=== PATIENT | female | born 1975 | race Caucasian/White ===

== ENCOUNTER 2021-08-14 08:44 | Day surgery (SDC) | payer OTHER, SELFPAY ==
--- NOTE | 2021-08-13 08:40 | EKG12_ITS ---
Test Reason : PRE OP Blood Pressure : / mmHG Vent. Rate : 090 BPM Atrial Rate : 090 BPM P-R Int : 120 ms QRS Dur : 086 ms QT Int : 348 ms P-R-T Axes : 076 072 066 degrees QTc Int : 425 ms Normal sinus rhythm Normal ECG Confirmed by DORYS PALACIO, HILDA ([id number]), writer editor WALDEMAR VELEZ ([id number]) on 08/14/2021 7:26:03 AM Referred By: Kulwant Estrada Confirmed By:HILDA SAUL MD
[2021-08-13 10:50] LABS: Hematocrit 41.8 % (37-47); Hemoglobin 13.7 g/dL (12.0-15.0); Mean Corp Hgb Conc 32.8 g/dL (32-36); Mean Corpuscular Volume 97.7 fL (81-99); Mean Platelet Vol. 10.5 fl (6.2-12.0); Platelet Count 379 K/mm3 (150-450); RBC Distribution Width CV 13.5 % (11.6-14.6); Red Blood Count 4.28 M/mm3 (4.2-5.4); White Blood Count 8.1 K/mm3 (4.4-11.0)
[2021-08-14] VITALS (11 sets, daily range): BP systolic 123–140; BP diastolic 87–96; PULSE 82–99; RESP 16–18; TEMP 36–36.4; O2SAT 92–100; BMI 31.0
[2021-08-14] MEDS: Lactated Ringers 1,000 ML 100 ML IV ×2 (09:00→11:59)
--- NOTE | 2021-08-14 10:04 | HP.PCM_ITS ---
History and Physical Date of Admission: 08/14/21 HISTORY AND PHYSICAL ? Caity Montemayor 1975 ? REFERRING PHYSICIAN: Janice Buitrago APRN* ? CHIEF COMPLAINT: Consult (gallstones) ? HPI: Caity is a 46 year old female with a complaint of right upper quadrant pain. The patient has had symptoms of right upper quadrant pain episodically for some time. Patient has a strong family history of gallbladder problems. Her symptoms have been similar to her other families issues. She notes right upper quadrant pain rating to her back and shoulder after eating fatty meals. She describes the pain is like childbirth under her ribs. The symptoms have increased, over the past few weeks. The pain does radiate to the back and serena ulder. Food does aggravate her symptoms. Alleviating factors include: none. ? The patient was seen by her primary care physician 2 weeks ago. Caity underwent an ultrasound. These tests demonstrated cholelithiasis. The patient is referred for evaluation and treatment. ? The patient is being seen by me today at the request of Dr. Fernando Pedersen, for my opinion and advice regarding symptomatic cholelithiasis. ? ? SIGNIFICANT MEDICAL PROBLEMS: PAST MEDICAL HISTORY PAST MEDICAL HISTORY Diagnosis Date ? Endometriosis ? ? Gall stone ? ? Hypercholesteremia ? ? MARIIA (obstructive sleep apnea) ? ? [facility] fx. [phone] ? Seasonal allergies ? ? Trigeminal neuralgia syndrome ? ? Currently on Dr. Matthias Baptiste Neurologist ? Vitamin D deficiency ? ? ? OPERATIONS: PAST SURGICAL HISTORY PAST SURGICAL HISTORY Procedure Laterality Date ? BRAIN SURGERY HX ? ? ? Microvascular decompression ? CORRECT BUNION,OTHR METHODS ? 2011,2010 ? both feet ? LUMPECTOMY/RADIOTHERAPY DIAG MAMM/A10 ? 2005 ? benign ? PAST SURGICAL HISTORY OF ? ? ? wisdom teeth ? PAST SURGICAL HISTORY OF ? ? ? exploratory laproscopy ? S [place]ER[place] ABLATION [address] ? 2008 ? STABISM SURG,PREV EYE SURG,NOT MUSC ? 1979 ? both eyes ? VAGINAL HYSTERECTOMY ? 06/2013 ? Hysterectomy, vaginal ? ? ? CURRENT MEDICATIONS: CURRENT MEDICATIONS Current Outpatient Medications Medication Sig Dispense Refill ? MULTIVITAMIN ORAL Take by mouth once daily. ? ? ? HERBAL DRUGS ORAL Take by mouth. Tumeric ? ? ? esomeprazole (NEXIUM) 40 mg capsule TAKE 1 CAPSULE BY MOUTH DAILY BEFORE BREAKFAST. 1/2 HR BEFORE MEAL. 30 capsule 0 ? lacosamide (VIMPAT) 150 mg tab Take by mouth twice daily. ? ? ? cenobamate (XCOPRI ORAL) Take 25 mg by mouth. 150 mg daily ? ondansetron orally disintegrating (ZOFRAN ODT) 4 mg disintegrating tablet Take 1 tablet by mouth every 6 hours as needed for Nausea/Vomiting. 40 tablet 1 ? CPAP Initiate CPAP @ 10 cm of water with humidification, heated hose. Nasal cannula - women's small , filters, tubing, humidifier and lifetime supplies. New head gear. Resmed Airsense 10 Autoset Machine 1 Device 0 ? cholecalciferol (VITAMIN D3) 2,000 unit tablet Take 1 tablet by mouth once daily. 90 tablet 3 ? loratadine (CLARITIN) 10 mg tablet Take 10 mg by mouth once daily. ? ? ? ACETAMINOPHEN (TYLENOL ORAL) Take by mouth. ? ? ? baclofen (LIORESAL) 10 mg tablet Take 1 tablet by mouth three times daily as needed (Face pain). 90 tablet 11 ? acyclovir (ZOVIRAX) 400 mg tablet Take 1 tablet by mouth three times daily. (Patient not taking: Reported on 08/04/2021 ) 21 tablet 1 ? No current facility-administered medications for this visit. ? ? ALLERGIES: Tegretol [Carbamazepine] ? PERSONAL HISTORY: SOCIAL HISTORY Social History ? Tobacco Use ? Smoking status: Never Smoker ? Smokeless tobacco: Never Used Vaping Use ? Vaping Use: Never used Substance Use Topics ? Alcohol use: Yes ? ? Comment: occaionally wine ? Drug use: No ? FAMILY HISTORY: FAMILY HISTORY FAMILY HISTORY Problem Relation Age of Onset ? Breast Cancer Mother ? ? 60, diagnosed unknown age ? Cancer Father ? ? kidney ? Hypertension Father ? ? Hypertension Paternal Grandmother ? ? Diabetes Paternal Grandmother ? ? Alzheimer's Disease Paternal Grandfather ? ? ? REVIEW OF SYMPTOMS: The review of systems data was entered by the nurse and reviewed by me ? Nursing Notes: Raven Husain RN 08/04/2021 2:12 PM Signed REVIEW OF SYSTEMS: General: The patient NOTES fatigue, denies weight loss, denies weight gain, denies feeling hot, and NOTES feelings of cold. Eyes: The patient denies glaucoma, NOTES eye injury/surgery, does not wear glasses or contacts. Ear/Nose/Throat: The patient NOTES allergies, denies hayfever, denies ear infections, and denies bloody noses. Cardiovascular: The patient denies chest pain, denies heart disease, denies high blood pressure,denies cardiac stent, denies prior heart attack, denies irregular heart beat, denies high cholesterol, denies poor circulation, denies heart failure, other cardiac issues, denies claudication, denies cold feet, denies peripheral arterial stent. Respiratory: The patient denies tuberculosis, denies pneumonia, denies frequent cough, denies pulmonary embolism, denies shortness of breath, and denies coughing up blood. Gastrointestinal: The patient denies difficulty swallowing, denies acid reflux, denies ulcers, denies vomiting, denies jaundice/hepatitis, NOTES gallbladder problems, denies black or tarry stools, denies hemorrhoids, denies bleeding from rectum, denies diverticulitis, denies constipation, denies diarrhea, denies loss of stool control, and denies hernias. Kidney/Bladder: The patient denies kidney stones, denies urine infections, and denies bloody urine. Skin: The patient denies a history of skin cancer, denies bleeding/changing moles, and denies a history of skin rash. Neurologic: The patient denies a history of epilepsy/convulsions, denies headaches, denies head/spinal injuries, and denies stroke/TIA. Psychiatric: The patient denies psychiatric medications, denies depression, and denies voices, denies substance abuse. Endocrine: The patient denies thyroid disorders, denies diabetes, and denies hormonal problems. Hematologic: The patient denies a history of bruising, denies bleeding, and denies anemia, denies blood clots. Infections: The patient denies a history of measles and mumps, denies rheumatic fever, and denies sexually transmitted diseases. Musculoskeletal: The patient denies back pain/injury, denies back problems, denies sciatica, denies knee/foot trouble, denies arthritis, or denies gout. ? ? When was patient's last Mammogram screening? 02/09/2017 ? Last Colonoscopy: None ? Raven Husain RN ? PHYSICAL EXAMINATION: ? General: The patient is 46 year old female, well nourished, well hydrated in no acute distress. The patient is oriented to time, place, and person. ? VITALS: Blood pressure 122/80, pulse 104, temperature 36.7 ?C (98.1 ?F), height 165.1 cm (5' 5), weight 84.9 kg (187 lb 3.2 oz), SpO2 98 %. Body mass index is 31.15 kg/m?. ? HEENT: Normal cephalic, ataumatic, pupils are equally round, sclera are anicteric, mucous membranes are moist, oropharynx is clear. Neck has no masses, asymmetry or lymphadenopathy. Thyroid is unremarkable. ? Respiratory: Clear to auscultation and percussion. Normal respiratory excursion and pattern. ? Cardiac: Examination is regular rate and rhythm. ? Abdominal exam: Normoactive bowel sounds, Soft, tender in the right upper quadrant negative Felix's sign, with no palpable masses. No hepatosplenomegaly. No palpable hernias. ? Rectal exam: exam deferred ? Extremities: no clubbing, cyanosis or edema. No adenopathy. ? Other: ? LABORATORY VALUES: As Noted ? RADIOLOGIC STUDIES: As Noted Above ? Assessment IMPRESSION: RUQ Pain, Cholelithiasis ? PLAN: My plan is to perform a laparoscopic cholecystectomy with intraoperative choleangiogram. The planned surgical procedure was discussed extensively with the patient. The risks, benefits, anticipated outcomes and possible complications were mentioned. My staff has also explained the procedure in understandable terms and the patient was given the option to take printed material concerning the planned procedure. The patient had the opportunity to ask questions concerning the planned procedure. The patient freely consents to the planned procedure. ? Planned Procedure: LAPAROSCOPIC CHOLECYSTECTOMY WITH INTRAOPERATIVE CHOLEANGIOGRAM - [id number] ? Planned antibiotic: Ancef 2gm IVPB devops solutions architect to OR ? SCDs needed - Yes ? Occupational Therapist Per Diem Needed - Yes ? Diagnoses: (R10.13) Epigastric abdominal pain (R10.11) RUQ abdominal pain (K80.20) Calculus of gallbladder without cholecystitis without obstruction ? ? ? I was planning to perform the surgical procedure but the patient has all tear and requires her procedure performed at [facility]. I will have my partner Dr. Estrada perform the procedure. ? My findings have been communicated to Dr. Fernando Pedersen DO via shared medical record. This note will be forwarded to Dr. Fernando L Pedersen, DO. ? Obed Youngblood MD I have re-examined the patient. There are no clinical changes since date of exam.
--- NOTE | 2021-08-14 10:30 | GALL_PTH ---
PATIENT: POLINA RODRIGUEZ LOC: [facility] [place] U#:[id number] AGE/SX: 46/F ROOM: RE08/14/[address]: Dr. Kulwant Estrada MD : 1975 BED: DIS: 08/14/2021 SPEC #: [id number] RECD: 08/14/21 13:46 STATUS: HASEEB HELGA #: [id number] MELI: 08/14/21 10:[address]: Kulwant Estrada DEPT: SURGICAL PATHOLOGY RECD BY: Tory Garcia ENTERED: 08/17/21 09:19 SP TYPE: ELIZA ROMERO DR: Dr. Fernando Pedersen, DO Tissues: Gallbladder, NOS Procedures: Surgery Specimen Level IV HEADER OPERATION: Laparoscopic cholecystectomy PRE-OP DIAGNOSIS: Calculus of gallbladder, RUQ pain TISSUE SUBMITTED: Gallbladder and contents MICROSCOPIC DIAGNOSIS Gallbladder and contents, cholecystectomy: Chronic cholecystitis, cholelithiasis and focal cholesterolosis. Reactive epithelial changes and focal intestinal metaplasia. SJ:prem 08/19/2021 COMMENT Alcian blue/PAS stain with matched control is used in the evaluation of the specimen. Case has been reviewed in consultation with Dr. Estrada who concurs with the above diagnosis. IDC:AM MICROSCOPIC DESCRIPTION Slides are reviewed. GROSS DESCRIPTION Received is one container labeled with the patient's name and designated gallbladder. The specimen consists of a gallbladder measuring 8 x 3 x 2.5 cm. The external surface is smooth and glistening. Focally, it is granular, hemorrhagic and contains cautery artifact. The lumen of the gallbladder contains yellow-green mucoid bile and multiple chalky, yellow calculi ranging in size from 0.1 to 1 cm in greatest dimension. The mucosa is bile-stained and without any mass lesions. The gallbladder wall averages 0.2 cm in thickness and is free of mass lesions. Rotor Pilot sections of the gallbladder and the cystic duct at margin of resection are submitted in one cassette. / AM:prem 08/17/21 More sections are submitted in three more cassettes, 2-4. / SJ:prem 08/18/21 TC:5 CPT: 47431, 55298
[2021-08-14] MEDS: Cefazolin 2 GM in 0.9% Normal Saline 100 ML IV (10:32)
[2021-08-14] MEDS: Bupivacaine Mpf 0.5% 30 ML VIAL (11:11)
--- NOTE | 2021-08-14 11:33 | PCM.OPRPT ---
Problems Associated Problem List Diagnoses (1) Cholelithiasis and cholecystitis without obstruction: Report of Operation Date of Procedure: 08/14/21 Pre-Operative Diagnosis: Symptomatic cholelithiasis Post-Operative Diagnosis: Same Surgery/Procedure Performed:: Laparoscopic cholecystectomy Surgeon: Kulwant Estrada business applications analyst: Alexis Cortez Type of Anesthesia: General Anesthesiologist: Ramón Forrester Specimen's removed: Gallbladder Drains: None Estimated Blood Loss (mL): < 25 cc Description of Procedure: Patient was brought into the operating room. Placed in the supine position. Under excellent general endotracheal ovation the abdomen was sterilely prepped and draped in the usual fashion. Local was injected infraumbilically. Dissection was carried down to the fascia. The fascia was grasped with a Xu. Varies needle was placed inside the abdomen. Abdomen was insufflated to 15 torr. A 10/12 trocar was placed without difficulty. Patient was placed in the head up and rotated to the left position. A subxiphoid #5 trocar was placed, inferior to this another #5 trocar was placed, laterally a #5 trocar was placed. All these under direct visualization without injury to underlying structures. Fundus of the gallbladder was grasped retracted in cephalad direction. Infundibulum was grasped retracted laterally. I dissected out the cystic duct. Placed hemoclips proximally and distally and ligated the duct. Dissected out the cystic artery placed hemoclips proximally and distally ligated deliver the gallbladder from the gallbladder bed I had spillage of bile but I had no spillage of stones I placed the specimen in a specimen bag and delivered through the umbilical port without difficulty. Reinflated the abdomen. Irrigated out all of the spilled bile. Liver bed had excellent hemostasis. Removed the trochars under direct visualization good and the stasis was noted. Close the fascia of the umbilical port with an 0 Vicryl suture. Skin incisions were closed with subcuticular stitches of 4-0 Monocryl. Dermabond was applied. Sterile dressings were applied. The patient tolerated the procedure well. Admit VTE Documentation VTE Present on Admission: No VTE Mechan Device Prophylaxis: SCD's VTE Pharm Prophylaxis ordered?: No Reason prophylaxis not ordered:: Treatment Not Indicated
--- NOTE | 2021-08-14 11:41 | DCINST_ITS ---
Discharge Instructions Procedure Gallbladder Diet Discharge Diet: Light diet - advance as tolerated Activity Discharge Activity: May Not Drive (for 2-3 days or while taking narcotic pain medications.) and - (Do not drive, work heavy equipment or sign legal documents for 24 hours.) May shower in (days): 1 (with the bandage in place.) Additional Activity Instructions:: Pain medication may cause nausea. You should typically eat light foods as you take your pain medications. Pain medication may also cause constipation. If this is a problem for you, please discuss with your doctor. Dressing / Incision Call your doctor if your incision/area has: Continuous Slow Oozing, Sudden Increased Bleeding, Increased Pain/ Swelling, Increased Redness and Foul Smelling Discharge Call your doctor if you observe: Fever of 101 or Higher Suture Line Care: Avoid Pulling/Pushing and Avoid Pinching/Bending Additional Dressing/Incision Instructions:: Leave operative bandaids on for 2 days. When you remove dressing, leave Steri-Strips on until your follow-up appointment, or until the Steri-Strips fall off on their own. Follow Up Care Please Follow Up With: Ann-Marie Vazquez PA-C When: Call office to schedule an appointment to be seen in 7 days after surgery. Test Results: Test results from this visit will be discussed in further detail at your follow-up appointment, if applicable. Discharge Plan Admission Attending Provider: Kulwant Estrada Primary Care Provider: Fernando Pedersen Discharge Orders/Prescriptions Prescriptions: New ondansetron HCl [Zofran] 4 mg tablet 4 mg PO Q6H Qty: 14 RF: 0 oxycodone-acetaminophen [Endocet] 5-325 mg tablet 1 tab PO Q6H PRN (Reason: pain) 5 Days Qty: 20 RF: 0 Continued Excedrin Migraine 1 EACH tablet 1 ea PO PRN PRN (Reason: Headache) RF: 0 multivitamin Tablet 1 tab PO DAILY RF: 0 esomeprazole magnesium 40 mg capsule,delayed release(DR/EC) 40 mg PO DAILY RF: 0 loratadine [Claritin] 10 mg Tablet 10 mg PO DAILY RF: 0 cholecalciferol (vitamin D3) [Vitamin D3] 25 mcg (1,000 unit) Tablet 25 mcg PO DAILY RF: 0 Vimpat 150 mg tablet 150 mg PO BID RF: 0 Xcopri 200 mg Tablet 200 mg PO DAILY RF: 0 turmeric root-charlotte root ext 150-25 mg Tablet,Chewable 1 tab PO DAILY RF: 0 baclofen 10 mg tablet 10 mg PO TID RF: 0 Referrals / Follow Up: Fernando Pedersen DO [Primary Care Provider] - Ann-Marie Vazquez PAJulio CC [PHYSICIAN SENIOR GEOTECHNICAL ENGINEER] - Disposition Disposition (needs filled in before D/C Order can be placed): Home, Self Care
[2021-08-14] MEDS: Acetaminophen 325 MG Tablet PO (13:36)
[2021-08-14] MEDS: oxyCODONE 5 MG Tablet PO (13:36)
== END 2021-08-14 16:31 | disposition home or self-care (01) ==
LOC: SDC 08:45 → AC 08:46
PROVIDERS: PCP Student in an Organized Health Care Education/Training Program; Referring Provider Surgery; Visit Provider Surgery
PROC: (CPT 47610; principal; 2021-08-14 10:10)
DX: K80.10 Calculus of gallbladder with chronic cholecystitis without obstruction (principal); E78.00 Pure hypercholesterolemia, unspecified; G47.33 Obstructive sleep apnea (adult) (pediatric); Z79.899 Other long term (current) drug therapy; Z80.3 Family history of malignant neoplasm of breast; Z83.3 Family history of diabetes mellitus; Z82.49 Family history of ischemic heart disease and other diseases of the circulatory system
CPT/HCPCS: 00790; 47562; 36415; 85027; 87426; 88304; 88305; 93005; C9803; J7120; J2405

== ENCOUNTER 2022-06-14 11:46 | Day surgery (SDC) | payer OTHER, SELFPAY ==
[2022-06-14] VITALS (7 sets, daily range): BP systolic 125–134; BP diastolic 55–90; PULSE 77–97; RESP 14–16; TEMP 37–37.1; O2SAT 98–100; BMI 29.3
--- NOTE | 2022-06-14 | COLBX_PTH ---
PATIENT: POLINA RODRIGUEZ LOC: [place] U#:[id number] AGE/SX: 47/F ROOM: RE06/14/[address]: Dr. Kulwant Estrada MD : 1975 BED: DIS: 06/14/2022 SPEC #: [id number] RECD: 06/14/22 13:56 STATUS: HASEEB HELGA #: [id number] MELI: 06/14/22 00:[address]: Kulwant Estrada DEPT: SURGICAL PATHOLOGY RECD BY: Trey Pelayo ENTERED: 06/15/22 08:54 SP TYPE: COLON BX OTHR DR: Dr. Fernando Pedersen, DO Tissues: A - Duodenum, NOS B - Gastric mucous membrane C - Esophageal mucous membrane D - Ileum, NOS E - COLON BIOPSY Procedures: Surgery Specimen Level IV HEADER OPERATION: Colonoscopy with biopsy, EGD with biopsy ([facility] [place] PRE-OP DIAGNOSIS: Blood in stool, generalized abdominal pain, postoperative nausea and vomiting TISSUE SUBMITTED: A ? Duodenum biopsy, B ? Antrum biopsy for H. pylori and path, C ? Distal esophagus biopsy, D ? Terminal ileum biopsy, E ? Random colon biopsy MICROSCOPIC DIAGNOSIS A. Duodenum, biopsy: A fragment of duodenal mucosa, no pathologic diagnosis. B. Antrum, biopsy: Minimal gastritis. See microscopic description and comment. C. Distal esophagus, biopsy: A fragment of squamous epithelium, no pathologic diagnosis. D. Terminal ileum, biopsy: A fragment of small intestinal mucosa, no pathologic diagnosis. E. Colon, random biopsy: Fragments of colonic mucosa, no pathologic diagnosis. SJ:prem 06/16/2022 COMMENT B. The results of immunohistochemistry for Helicobacter pylori will be reported separately ([id number]). MICROSCOPIC DESCRIPTION Slides are reviewed. B. The specimen shows fragments of gastric mucosa with chronic inflammatory cell infiltrates in the lamina propria consisting of lymphocytes and plasma cells, consistent with minimal chronic gastritis. GROSS DESCRIPTION A - Received in fixative is one container labeled with the patient's name and designated duodenum biopsy. The specimen consists of one irregular fragment of light garsia soft tissue that measures 0.3 x 0.3 x 0.1 cm. The specimen is totally submitted in one cassette. B - Received in fixative is one container labeled with the patient's name and designated antrum biopsy. The specimen consists of one irregular fragment of light garsia soft tissue that measures 0.4 x 0.2 x 0.1 cm. The specimen is totally submitted in one cassette. C - Received in fixative is one container labeled with the patient's name and designated distal esophagus biopsy. The specimen consists of one irregular fragment of light garsia soft tissue that measures 0.5 x 0.4 x 0.1 cm. The specimen is totally submitted in one cassette. D - Received in fixative is one container labeled with the patient's name and designated terminal ileum biopsy. The specimen consists of one irregular fragment of light garsia soft tissue that measures 0.5 x 0.3 x 0.1 cm. The specimen is totally submitted in one cassette. E - Received in fixative is one container labeled with the patient's name and designated random colon biopsy. The specimen consists of multiple irregular fragments of light garsia soft tissue that in aggregate measure 1 x 0.4 x 0.1 cm. The specimen is totally submitted in one cassette. / SJ:rg 06/15/2022 TC:3 CPT: 12857 x5
--- NOTE | 2022-06-14 | IMM_PTH ---
PATIENT: POLINA RODRIGUEZ LOC: [place] U#:[id number] AGE/SX: 47/F ROOM: RE06/14/[address]: Dr. Kulwant Estrada MD : 1975 BED: DIS: 06/14/2022 SPEC #: [id number] RECD: 06/15/22 09:44 STATUS: HASEEB REQ #: [id number] MELI: 06/14/22 00:[address]: Kulwant Estrada DEPT: IMMUNOHISTOCHEMISTRY RECD BY: April Valdez ENTERED: 06/15/22 09:47 SP TYPE: IMMUNO OTHR DR: Dr. Fernando Pedersen, DO Tissues: B - Stomach, NOS Procedures: H Pylori (initial) [facility]YSIC[facility] [address] [address] SPECIMEN INFORMATION: Tissue Source: B ? Antrum biopsy Clinical Info: Blood in stool, generalized abdominal pain, postop nausea and vomiting Specimen Number: [id number] CPT code: 84678 METHODOLOGY: Deparaffinized sections of prefer/formalin-fixed tissue or PAP/DQ stained slides are incubated with monoclonal/polyclonal antibodies/oligonucleotide probes. Localization is made via biotin free immunoperoxidase method. Appropriate controls are performed and reacted as expected. Results on target cell population are indicated in the following table: RESULTS: ANTIBODY / CLONE RESULT Block B H Pylori (polyclonal) negative These tests were developed and their performance characteristics determined by [facility]. They may not have been cleared or approved by the U.S. Food and Drug Administration. The FDA has determined that such clearance or approval is not necessary. The above immunohistochemical/dualISH markers are ordered and reviewed by the Pathologist. INTERPRETATION: B. Antrum, biopsy: Negative for Helicobacter pylori organisms. SJ:prem 06/16/2022
--- NOTE | 2022-06-14 12:27 | PCM.HP.BLA ---
History and Physical Date of Admission: 06/14/22 HISTORY AND PHYSICAL ? Caity Montemayor 1975 ? REFERRING PHYSICIAN: Fernando Pedersen, DO ? CHIEF COMPLAINT: Consult (Colonoscopy & Hemorrhoid) ? HPI: The patient is a 47 year old female referred for endoscopy. Caity notes recent fluctuation in bowel habits between loose stools and constipation. Notes a few episodes of thinner stools as well as bright red blood with bowel movements. Notes some intermittent right-sided upper as well as lower abdominal pain which has improved with bowel movements. She was seen in the emergency department at [place] for one of these abdominal pain episodes in June 2022, notes reviewed. Had CT scan without acute findings noted. Patient denies any weight changes or black tarry stools. Denies family history of colon issues. ? The patient NOTES history of GERD and is maintained on a PPI. ? Caity has not undergone prior endoscopy. ? Patient denies chest pain, shortness of breath or recent hospitalizations. She does note that she typically has had nausea and vomiting with every kind of sedation or anesthesia that she has received, and that oral antiemetics are not typically helpful. ? ? PAST MEDICAL HISTORY PAST MEDICAL HISTORY Diagnosis Date ? Cholelithiasis with chronic cholecystitis 08/2021 ? Endometriosis ? ? Gall stone ? ? Hypercholesteremia ? ? MARIIA (obstructive sleep apnea) ? ? [facility] fx. [phone] ? Seasonal allergies ? ? Trigeminal neuralgia syndrome ? ? Currently on Dr. Matthias Baptiste Neurologist ? Vitamin D deficiency ? ? ? PAST SURGICAL HISTORY PAST SURGICAL HISTORY Procedure Laterality Date ? BRAIN SURGERY HX ? ? ? Microvascular decompression ? CORRECT BUNION,OTHR METHODS ? 2011,2010 ? both feet ? L'SCOPE CHOLECYSTECTOMY ? 08/14/2021 ? LUMPECTOMY/RADIOTHERAPY DIAG MAMM/A10 ? 2005 ? benign ? PAST SURGICAL HISTORY OF ? ? ? wisdom teeth ? PAST SURGICAL HISTORY OF ? ? ? exploratory laproscopy ? REMOVAL GALLBLADDER ? 08/14/2021 ? S BALLOON,UTERINE ABLATION [id number] ? 2008 ? STABISM SURG,PREV EYE SURG,NOT MUSC ? 1979 ? both eyes ? VAGINAL HYSTERECTOMY UTERUS 250 GM/< ? 06/2013 ? Hysterectomy, vaginal ? ? ? CURRENT MEDICATIONS Current Outpatient Medications Medication Sig ? lamoTRIgine (LAMICTAL) 100 mg tablet Take 75 mg by mouth three times daily. ? hydrocortisone (PREPARATION H HYDROCORTISONE) 1 % cream Apply to affected area twice daily. ? pregabalin (LYRICA) 150 mg capsule 150 mg. ? MULTIVITAMIN ORAL Take by mouth once daily. ? esomeprazole (NEXIUM) 40 mg capsule TAKE 1 CAPSULE BY MOUTH DAILY BEFORE BREAKFAST. 1/2 HR BEFORE MEAL. ? cenobamate (XCOPRI ORAL) Take 250 mg by mouth. 150 mg daily ? ? ondansetron orally disintegrating (ZOFRAN ODT) 4 mg disintegrating tablet Take 1 tablet by mouth every 6 hours as needed for Nausea/Vomiting. ? CPAP Initiate CPAP @ 10 cm of water with humidification, heated hose. Nasal cannula - women's small , filters, tubing, humidifier and lifetime supplies. New head gear. Resmed Airsense 10 Autoset Machine ? loratadine (CLARITIN) 10 mg tablet Take 10 mg by mouth once daily. ? ACETAMINOPHEN (TYLENOL ORAL) Take by mouth. ? baclofen (LIORESAL) 10 mg tablet Take 1 tablet by mouth three times daily as needed (Face pain). ? No current facility-administered medications for this visit. ? ? ALLERGIES: Adhesive Tape-Silicones, Chlorhexidine, Dermabond [Octyl 2-Cyanoacrylate], and Tegretol [Carbamazepine] ? PERSONAL HISTORY: SOCIAL HISTORY Social History ? Tobacco Use ? Smoking status: Never Smoker ? Smokeless tobacco: Never Used Vaping Use ? Vaping Use: Never used Substance Use Topics ? Alcohol use: Yes ? ? Comment: occaionally wine ? Drug use: No ? FAMILY HISTORY: FAMILY HISTORY FAMILY HISTORY Problem Relation Age of Onset ? Breast Cancer Mother ? ? 60, diagnosed unknown age ? Cancer Father ? ? kidney ? Hypertension Father ? ? Hypertension Paternal Grandmother ? ? Diabetes Paternal Grandmother ? ? Alzheimer's Disease Paternal Grandfather ? ? ? REVIEW OF SYMPTOMS: The review of systems data was entered by the nurse and reviewed by me ? Nursing Notes: Arleth Anguiano 05/10/2022 8:37 AM Signed REVIEW OF SYSTEMS: General: The patient denies fatigue, denies weight loss, denies weight gain, denies feeling hot, and denies feelings of cold. Eyes: The patient denies glaucoma, NOTES eye injury/surgery, wears glasses or contacts. Ear/Nose/Throat: The patient NOTES allergies, denies hayfever, denies ear infections, and denies bloody noses. Cardiovascular: The patient denies chest pain, denies heart disease, denies high blood pressure,denies cardiac stent, denies prior heart attack, denies irregular heart beat, denies high cholesterol, denies poor circulation, denies heart failure, other cardiac issues, denies claudication, denies cold feet, denies peripheral arterial stent. Respiratory: The patient denies tuberculosis, denies pneumonia, denies frequent cough, denies pulmonary embolism, denies shortness of breath, and denies coughing up blood. Gastrointestinal: The patient denies difficulty swallowing, denies acid reflux, denies ulcers, denies vomiting, denies jaundice/hepatitis, denies gallbladder problems, denies black or tarry stools, NOTES hemorrhoids, denies bleeding from rectum, denies diverticulitis, NOTES constipation, NOTES diarrhea, denies loss of stool control, and denies hernias. Kidney/Bladder: The patient denies kidney stones, denies urine infections, and denies bloody urine. Skin: The patient denies a history of skin cancer, denies bleeding/changing moles, and denies a history of skin rash. Neurologic: The patient denies a history of epilepsy/convulsions, NOTES headaches, denies head/spinal injuries, and denies stroke/TIA. Psychiatric: The patient denies psychiatric medications, denies depression, and denies voices, denies substance abuse. Endocrine: The patient denies thyroid disorders, denies diabetes, and denies hormonal problems. Hematologic: The patient NOTES a history of bruising, denies bleeding, and denies anemia, denies blood clots. Infections: The patient denies a history of measles and mumps, denies rheumatic fever, and denies sexually transmitted diseases. Musculoskeletal: The patient denies back pain/injury, denies back problems, denies sciatica, denies knee/foot trouble, denies arthritis, or denies gout. ? ? When was patient's last Mammogram screening? 04/07/2022 ? Last Colonoscopy: None ? ? Arleth Anguiano I have confirmed and edited as necessary, the PFSH and ROS obtained by others. Ann-Marie Vazquez PA-C ? PHYSICAL EXAMINATION: ? General: The patient is 47 year old female, well nourished, well hydrated in no acute distress. The patient is oriented to time, place, and person. ? VITALS: Blood pressure 128/84, pulse 91, temperature 36.5 ?C (97.7 ?F), height 165.1 cm (5' 5), weight 78.9 kg (174 lb), SpO2 99 %. Body mass index is 28.96 kg/m?. ? HEENT: Normal cephalic, ataumatic, pupils are equally round, sclera are anicteric, mucous membranes are moist, oropharynx is clear. Neck has no masses, asymmetry or lymphadenopathy. ? Respiratory: Clear to auscultation and percussion. Normal respiratory excursion and pattern. ? Cardiac: Examination is regular rate and rhythm. Normal S1/S2 ? Abdominal exam: Soft, nontender, with no palpable masses. No hepatosplenomegaly. No palpable hernias. ? Extremities: no clubbing, cyanosis or edema. No adenopathy. ? LABORATORY VALUES: As Noted ? RADIOLOGIC STUDIES: As Noted ? ? Assessment IMPRESSION: change in bowel habits, rectal bleeding, upper and lower abdominal pain, GERD ? PLAN: I have reviewed my findings with the surgeon. Will plan for upper and lower endoscopy with biopsies. We discussed the risks and benefits of the planned endoscopy. I have informed the patient that complications can occur including failure to complete the endoscopy and perforation. The patient had the opportunity to ask questions concerning the planned endoscopy. My staff has also explained the procedure to the patient in understandable terms and has given the patient printed material concerning the procedure. The patient freely consents to surgery. ? The patient was offered a surgery/procedure at a [facility] facility. I have counseled the patient regarding the risk of exposure to and/or potential harm posed by the COVID-19 virus with having a surgery/procedure at this time versus the risk of? delaying the surgery/procedure. It is not possible to know either the risk of delaying the surgery or procedure or chance of getting an infection with perfect accuracy, but a joint decision was made between the patient and myself?to proceed at this time with endoscopy. ? ? I plan to use Golytely bowel preparation ? I have explained to the patient the difference between IV conscious sedation and MAC anesthesia - and I have offered either, according to the patient's wishes. I have explained that with IV conscious sedation there is no anesthesia provider available and therefore there is a limitation of the amount of IV medications that can be given and that the patient may wake up in the middle of the procedure and/or experience pain/discomfort during the procedure. Further discussion was done and the patient was given the opportunity to ask questions and all questions were answered. The patient chooses MAC anesthesia ? Will also plan to have patient premedicated for nausea at time of procedure as she notes nausea and vomiting with any kind of sedation or anesthesia in the past ? Diagnoses: (R19.4) Change in bowel habits (primary encounter diagnosis) (K92.1) Blood in stool (R10.84) Generalized abdominal pain (R11.2, Z98.890) Post-operative nausea and vomiting ? ? Ann-Marie Vazquez PA-C I have re-examined the patient. There are no clinical changes since date of exam.
--- NOTE | 2022-06-14 13:59 | OP.EGD_ITS ---
Patient Name: Caity Montemayor Procedure Date: 06/14/2022 1:06 PM Date of : 1975 Age: 47 Procedure: Upper GI endoscopy Indications: Epigastric abdominal pain, Heartburn, Nausea with vomiting Providers: Kulwant Estrada MD Medicines: See the Anesthesia note for documentation of the administered medications Patient Profile: This is a 47 year old female. Refer to note in patient chart for documentation of history and physical. Complications: No immediate complications. Estimated blood loss: Minimal. Procedure: Pre-Anesthesia Assessment: - Prior to the procedure, a History and Physical was performed, and patient medications and allergies were reviewed. The patient's tolerance of previous anesthesia was also reviewed. The risks and benefits of the procedure and the sedation options and risks were discussed with the patient. All questions were answered, and informed consent was obtained. Prior Anticoagulants: The patient has taken no previous anticoagulant or antiplatelet agents. ASA Grade Assessment: II - A patient with mild systemic disease. After reviewing the risks and benefits, the patient was deemed in satisfactory condition to undergo the procedure. After obtaining informed consent, the endoscope was passed under direct vision. Throughout the procedure, the patient's blood pressure, pulse, and oxygen saturations were monitored continuously. The gastroscope was introduced through the mouth, and advanced to the second part of duodenum. The upper GI endoscopy was accomplished without difficulty. The patient tolerated the procedure well. Scope In: 1:15:53 PM Scope Out: 1:19:07 PM Total Procedure Duration Time 0 hours 3 minutes 14 seconds Findings: The Z-line was regular and was found 40 cm from the incisors. Biopsies were taken with a cold forceps for histology. Localized mild inflammation characterized by erythema was found in the prepyloric region of the stomach. Biopsies were taken with a cold forceps for Helicobacter pylori testing. The examined duodenum was normal. Biopsies for histology were taken with a cold forceps for evaluation of celiac disease. Impression: - Z-line regular, 40 cm from the incisors. Biopsied. - Gastritis. Biopsied. - Normal examined duodenum. Biopsied. Recommendation: - Patient has a contact number available for emergencies. The signs and symptoms of potential delayed complications were discussed with the patient. Return to normal activities tomorrow. Written discharge instructions were provided to the patient. - Resume previous diet. - Continue present medications. - Await pathology results. - Repeat upper endoscopy PRN for surveillance. - Return to physician assistant hvac mechanic in 1 week. Procedure Code(s): --- Professional --- 20085, Esophagogastroduodenoscopy, flexible, transoral; with biopsy, single or multiple Diagnosis Code(s): --- Professional --- K29.70, Gastritis, unspecified, without bleeding R10.13, Epigastric pain R12, Heartburn R11.2, Nausea with vomiting, unspecified CPT copyright 2017 [employer]. All rights reserved. The codes documented in this report are preliminary and upon medical billing coder review may be revised to meet current compliance requirements. MD Kulwant Ortiz MD 06/14/2022 1:58:57 PM This report has been signed electronically. Number of Addenda: 0 Note Initiated On: 06/14/2022 1:06 PM
--- NOTE | 2022-06-14 13:59 | OP.CCLET_ITS ---
06/14/2022 Fernando Pedersen [address] [place] [address] Re : Upper GI endoscopy procedure for Caity Montemayor Dear Dr. Pedersen This procedure was performed on Tuesday, June 14, 2022. My impressions and recommendations are as follows: Impressions : - Z-line regular, 40 cm from the incisors. Biopsied. - Gastritis. Biopsied. - Normal examined duodenum. Biopsied. Recommendations : - Patient has a contact number available for emergencies. The signs and symptoms of potential delayed complications were discussed with the patient. Return to normal activities tomorrow. Written discharge instructions were provided to the patient. - Resume previous diet. - Continue present medications. - Await pathology results. - Repeat upper endoscopy PRN for surveillance. - Return to physician historian research assistant in 1 week. My findings are described in the full procedure note, which is enclosed. If I can be of further assistance, please feel free to contact me at Doctor phone number(s): , Work: . Sincerely, MD Kulwant Ortiz MD 06/14/2022 1:58:57 PM This report has been signed electronically.
--- NOTE | 2022-06-14 14:03 | OP.COLON_ITS ---
Patient Name: Caity Montemayor Procedure Date: 06/14/2022 1:21 PM Date of : 1975 Age: 47 Procedure: Colonoscopy Indications: Lower abdominal pain, Rectal bleeding Providers: Kulwant Estrada MD Medicines: See the Anesthesia note for documentation of the administered medications Patient Profile: This is a 47 year old female. Refer to note in patient chart for documentation of history and physical. Last Colonoscopy: none. The patient's first colonoscopy is today. Complications: No immediate complications. Estimated blood loss: Minimal. Procedure: Pre-Anesthesia Assessment: - Prior to the procedure, a History and Physical was performed, and patient medications and allergies were reviewed. The patient's tolerance of previous anesthesia was also reviewed. The risks and benefits of the procedure and the sedation options and risks were discussed with the patient. All questions were answered, and informed consent was obtained. Prior Anticoagulants: The patient has taken no previous anticoagulant or antiplatelet agents. ASA Grade Assessment: II - A patient with mild systemic disease. After reviewing the risks and benefits, the patient was deemed in satisfactory condition to undergo the procedure. After I obtained informed consent, the scope was passed under direct vision. Throughout the procedure, the patient's blood pressure, pulse, and oxygen saturations were monitored continuously. The colonoscope was introduced through the anus and advanced to 3 cm into the ileum. The colonoscopy was performed with moderate difficulty due to a tortuous colon. The colonoscopy was performed with moderate difficulty due to inadequate bowel prep. The patient tolerated the procedure well. The quality of the bowel preparation was inadequate. Scope In: 1:23:55 PM Scope Withdrawal Time 0 hours 8 minutes 37 seconds Scope Out: 1:40:39 PM Total Procedure Duration Time 0 hours 16 minutes 44 seconds Findings: The perianal and digital rectal examinations were normal. The colon (entire examined portion) appeared normal. Biopsies for histology were taken with a cold forceps from the entire colon for evaluation of microscopic colitis. The terminal ileum appeared normal. Biopsies were taken with a cold forceps for histology. Impression: - Preparation of the colon was inadequate. - The entire examined colon is normal. Biopsied. - The examined portion of the ileum was normal. Biopsied. Recommendation: - Patient has a contact number available for emergencies. The signs and symptoms of potential delayed complications were discussed with the patient. Return to normal activities tomorrow. Written discharge instructions were provided to the patient. - Resume previous diet. - Continue present medications. - Await pathology results. - Repeat colonoscopy in 6 months because the bowel preparation was poor. - Return to physician hr administrative assistant in 1 week. Procedure Code(s): --- Professional --- 89330, Colonoscopy, flexible; with biopsy, single or multiple Diagnosis Code(s): --- Professional --- R10.30, Lower abdominal pain, unspecified K62.5, Hemorrhage of anus and rectum CPT copyright 2017 [employer]. All rights reserved. The codes documented in this report are preliminary and upon ip technology transactions attorney review may be revised to meet current compliance requirements. MD Kulwant Ortiz MD 06/14/2022 2:02:55 PM This report has been signed electronically. Number of Addenda: 0 Note Initiated On: 06/14/2022 1:21 PM
--- NOTE | 2022-06-14 14:04 | OP.CCLET_ITS ---
06/14/2022 Fernando Pedersen [address] [place] [address] Re : Colonoscopy procedure for Caity Montemayor Dear Dr. Pedersen This procedure was performed on Tuesday, June 14, 2022. My impressions and recommendations are as follows: Impressions : - Preparation of the colon was inadequate. - The entire examined colon is normal. Biopsied. - The examined portion of the ileum was normal. Biopsied. Recommendations : - Patient has a contact number available for emergencies. The signs and symptoms of potential delayed complications were discussed with the patient. Return to normal activities tomorrow. Written discharge instructions were provided to the patient. - Resume previous diet. - Continue present medications. - Await pathology results. - Repeat colonoscopy in 6 months because the bowel preparation was poor. - Return to physician server assistant in 1 week. My findings are described in the full procedure note, which is enclosed. If I can be of further assistance, please feel free to contact me at Doctor phone number(s): , Work: . Sincerely, MD Kulwant Ortiz MD 06/14/2022 2:02:55 PM This report has been signed electronically.
== END 2022-06-14 14:38 | disposition home or self-care (01) ==
LOC: EN 11:47 → AC 11:48
PROVIDERS: PCP Student in an Organized Health Care Education/Training Program; Referring Provider Student in an Organized Health Care Education/Training Program; Visit Provider Surgery
PROC: 0DJD8ZZ Inspection of Lower Intestinal Tract, Via Natural or Artificial Opening Endoscopic (ICD-10-PCS; CPT 45378; principal; 2022-06-14 12:55)
DX: K29.50 Unspecified chronic gastritis without bleeding (principal); K31.89 Other diseases of stomach and duodenum; K21.9 Gastro-esophageal reflux disease without esophagitis; G47.33 Obstructive sleep apnea (adult) (pediatric); E55.9 Vitamin D deficiency, unspecified; Z79.899 Other long term (current) drug therapy
CPT/HCPCS: 43239; 45380; 88305; 88342; J7120; J2405

== ENCOUNTER → 2023-02-01 | Outpatient (CLI) | payer OTHER, SELFPAY ==
[2023-02-01 15:33] LABS: Follicle Stimulating Hormone 4.3 mIU/mL; Luteinizing Hormone 4.6 mIU/mL
== END | disposition home or self-care (01) ==
LOC: WOBLAB 14:33
PROVIDERS: PCP Student in an Organized Health Care Education/Training Program; Visit Provider Student in an Organized Health Care Education/Training Program
DX: N95.8 Other specified menopausal and perimenopausal disorders (principal)
CPT/HCPCS: 36415; 83001; 83002

== ENCOUNTER 2023-04-18 08:48 | Day surgery (SDC) | payer OTHER, SELFPAY ==
[2023-04-14 11:44] LABS: Hematocrit 41.1 % (37-47); Hemoglobin 13.5 g/dL (12.0-15.0); Mean Corp Hgb Conc 32.8 g/dL (32-36); Mean Corpuscular Hgb 31.7 pg (27.0-32.0); Mean Corpuscular Volume 96.5 fL (81-99); Mean Platelet Vol. 10.2 fl (6.2-12.0); Platelet Count 290 K/mm3 (150-450); RBC Distribution Width CV 13.6 % (11.6-14.6); RBC Distribution Width SD 48.8 fl (35.1-43.9); Red Blood Count 4.26 M/mm3 (4.2-5.4); White Blood Count 5.9 K/mm3 (4.4-11.0)
[2023-04-18] VITALS (7 sets, daily range): BP systolic 108–138; BP diastolic 77–88; PULSE 62–86; RESP 16–18; TEMP 36.2–37; O2SAT 98–100; BMI 31.9
[2023-04-18] MEDS: Lactated Ringers 1,000 ML 15 ML IV (09:20)
--- NOTE | 2023-04-18 09:50 | PCM.HP.BLA ---
History and Physical Date of Admission: 04/18/23 Chief complaint: Stress urinary incontinence History of present illness: 48-year-old arrives for scheduled transvaginal tape and cystoscopy. No medical changes since last seen, all questions answered and consent signed. Obstetric history: history of 3 vaginal deliveries Past medical history: Fibromyalgia Medications: Baclofen, lamotrigine, Lyrica, Neurontin, Flonase, Claritin Past surgical history: Laparoscopy, ablation, brain, tubal ligation, vaginal hysterectomy, cholecystectomy, wisdom tooth extraction, breast lumpectomy Allergies: Betadine, Tegretol Social history: Denies smoking, coos, drug use Family history: Denies history DVT or PE Review of systems: Besides above pertinent positives a full review of systems was performed and found to be negative Physical exam: Vitals: Blood pressure 125/81 pulse 82 respiratory rate 18 temperature 97.9 ?F SPO2 100% on room air General: Normal-appearing no acute distress HEENT: Normocephalic/atraumatic no cervical of adenopathy Cardiac/respiratory: No use of accessory muscles, nonlabored breathing Abdomen: Soft, nontender, nondistended Extremities: No peripheral edema normal peripheral pulses Psych: Normal affect, demeanor nonpressured speech Assessment plan: 48-year-old arrives for transvaginal tape sling and cystoscopy. Patient understands risks of the procedure include but are not limited to visceral or vascular injury, prolonged hospitalization, blood loss need for transfusion, reoperation. Educated patient on mesh complications and risk for Mendez catheter. Patient states understanding wish to proceed. All questions were answered and consent was signed.
[2023-04-18] MEDS: Cefazolin 2 GM in 0.9% Normal Saline 100 ML IV (10:08)
[2023-04-18] MEDS: Lidocaine 1%/Epi 1:100 (30ml) 30 ML VIAL (10:40)
--- NOTE | 2023-04-18 11:20 | DCINST_ITS ---
Discharge Instructions Diet Discharge Diet: No restrictions Activity Discharge Activity: Return to Normal Activity, May Drive, May Shower and - (No tub baths or soaking the incision for 2-week) May resume sexual activity in: 6-8 weeks Lifting Restrictions: No lifting over 25 pounds for 2 to 3 weeks Dressing / Incision Call your doctor if your incision/area has: Continuous Slow Oozing and Foul Smelling Discharge Call your doctor if you observe: Fever of 101 or Higher, Shortness of breath and Chest pain Follow Up Care Please Follow Up With: Erik Osorio MD When: 2 weeks postoperatively Test Results: Test results from this visit will be discussed in further detail at your follow- up appointment, if applicable. Discharge Plan Admission Attending Provider: Erik Osorio Primary Care Provider: Fernando Pedersen Discharge Orders/Prescriptions Prescriptions: New ondansetron 4 mg Tablet,Disintegrating 4 mg PO Q6H PRN PRN (Reason: Nausea) 4 Days Qty: 20 1RF oxycodone 5 mg Tablet 5 mg PO Q6H PRN PRN (Reason: Pain Score 7-10/10) 5 Days Qty: 15 0RF Continued Excedrin Migraine 1 EACH tablet 1 ea PO PRN PRN (Reason: Headache) multivitamin Tablet 1 tab PO DAILY esomeprazole magnesium 40 mg capsule,delayed release(DR/EC) 40 mg PO PRN PRN (Reason: Indigestion) loratadine [Claritin] 10 mg Tablet 10 mg PO DAILY cholecalciferol (vitamin D3) [Vitamin D3] 25 mcg (1,000 unit) Tablet 25 mcg PO DAILY baclofen 10 mg tablet 10 mg PO TID lamotrigine 100 mg tablet 100 mg PO BID Label Comments: TAKE 1 TABLET BY MOUTH TWICE A DAY pregabalin 300 mg capsule 300 mg PO BID Label Comments: TAKE 1 CAPSULE BY MOUTH 2 TIMES DAILY FOR 30 DAYS. fluticasone propionate [Flonase Allergy Relief] 50 mcg/actuation [place],Suspension 1 spray INTRANASAL PRN PRN (Reason: ALLERGIES) Rx Instructions: administer into each nostril pregabalin [Lyrica] 150 mg Capsule 150 mg PO 1500 ondansetron HCl 4 mg tablet 4 mg PO PRN PRN (Reason: Nausea) levalbuterol tartrate 45 mcg/actuation Hfa Aerosol Inhaler 1 puff INHALATION PRN PRN (Reason: ASTHMA) Other Ambulatory Orders: 12 Lead EKG (Routine) Timeframe: [id number] Facility: [facility] - Location: Cardiovascular Services Ordered By: Dr. Agustin Burgos Referrals / Follow Up: Fernando Pedersen DO [Primary Care Provider] - Disposition Disposition (needs filled in before D/C Order can be placed): Home, Self Care
--- NOTE | 2023-04-18 11:21 | PCM.OPRPT ---
Report of Operation Date of Procedure: 04/18/23 Pre-Operative Diagnosis: Stress urinary incontinence Post-Operative Diagnosis: Stress urinary incontinence Surgery/Procedure Performed:: Tension-free vaginal tape, cystoscopy Description of Surgical Findings:: Surgeon: Erik Osorio MD Anesthesia: General EBL: 20 cc Urine output: 100 cc IV fluids: 1000 cc Complications: None Specimen: None Findings: Post procedure cystoscopy performed with no signs of mesh or perforation. No pathology noted. Consent: Patient with stress urinary incontinence elects for tension-free vaginal tape, and cystoscopy. Patient understands risk of the procedure include but are not limited to visceral or vascular injury, prolonged hospitalization, blood loss need for transfusion, reoperation. Educated patient on risk for mesh complications and ongoing Mendez catheter. Patient state understanding wish to proceed. All questions were answered and consent was signed. Procedure: Patient was brought back to the OR where general anesthesia was found to be adequate. 2 g of Ancef were given for infection prophylaxis. Patient was prepared and draped in a dorsolithotomy position with yellowfin stirrups. A weighted speculum is placed in the posterior aspect of the vagina. Using a marking pen the pubic rami midline was found and marked, 2 cm lateral to the midline demarcation markings were made bilaterally at the pubic bone. Demarcation was made 1 cm cephalad to the urethra. Allis clamp placed at the 1 cm cephalad elizabeth to the urethra. Second Allis was placed inferiorly and 2 cc of 1% lidocaine with epinephrine were injected for Billings dissection and hemostasis. 15 blade scalpel was used Allis to Allis to incise the vaginal mucosa. Using Ray-Jag and Metzenbaum scissors the right aspect of the vaginal mucosa right lateral to the urethra was dissected, in similar fashion the left aspect of the vaginal mucosa left lateral to the urethra was dissected. Sling was opened and prepared. Mendez catheter stylette was inserted. Right portion of the mesh sling was loaded onto the trocar and the trocar tip was inserted in the right portion of the periurethral vaginal mucosal dissection, meanwhile the bladder was deviated with Mendez catheter stylette to the left lateral side of the patient. Trocar was used to guide the mesh retropubically until skin perforation at predemarcated site noted above was performed. Trocar was removed and in a similar fashion the left mesh sheath was loaded on the trocar and the bladder was deviated to the right lateral side, trocar was inserted at the periurethral vaginal mucosal dissection and guided retropubically until meeting left lateral suprapubic demarcation as noted above. Trocar removed. Cystoscopy was performed and above findings were noted, no signs of mesh or perforation. Sling was appropriately tightened by grasping the trocar sheaths and using a Consuelo clamp as to not over tighten the sling. Mesh was cut at the level of the skin suprapubically and skin glue was placed over the puncture sites, good hemostasis was noted. Vaginal mucosa good hemostasis was noted and vaginal mucosa was reapproximated and closed with Vicryl suture in a continuous running locked fashion. Good hemostasis was noted. Mendez catheter was reinserted. Good hemostasis was noted. All counts were correct x2. Patient tolerated procedure well and was brought to recovery in stable condition. bus repair supervisor: Justen Murray
[2023-04-18] MEDS: Acetaminophen 500 MG Tablet 1000 MG PO (13:11)
== END 2023-04-18 13:43 | disposition home or self-care (01) ==
LOC: SDC 08:48 → AC 09:24
PROVIDERS: PCP Student in an Organized Health Care Education/Training Program; Referring Provider Obstetrics & Gynecology; Visit Provider Obstetrics & Gynecology
PROC: (CPT 57260; principal; 2023-04-18 10:20)
DX: N39.3 Stress incontinence (female) (male) (principal); M79.7 Fibromyalgia; Z79.899 Other long term (current) drug therapy
CPT/HCPCS: 57288; 00942; 36415; 85027; 86850; 86900; 86901; 93005; J7120; J2405

== ENCOUNTER → 2023-07-08 | Outpatient (CLI) | payer OTHER, SELFPAY ==
--- NOTE | 2023-07-08 09:08 | US_ITS ---
EXAM: Diagnostic bilateral breast mammogram and diagnostic bilateral breast ultrasound REASON FOR EXAM: Female, 48 years old. Bilateral lateral breast pain for 2 months duration. PERTINENT HISTORY: Mother with breast cancer.. Remote history of left excisional breast biopsy. Remote history of bilateral breast cyst aspirations. TECHNIQUE: Digital bilateral breast ashly (3D mammographic acquisition) in the CC and MLO projections. 2-D mediolateral oblique (MLO) and craniocaudad (CC) views of the bilateral breasts were obtained. CAD: Full Field Digital Mammography with Computer Added Detection was performed. Real-time hess scale and color sonographic images were obtained of the right retroareolar breast and right lateral breast from the 6:00 to 12:00 position. Real-time grayscale and color sonographic images were obtained of the left retroareolar breast and left lateral breast from the 12:00 to 6:00 position. COMPARISON: Screening mammogram from 08/10/2021. Diagnostic mammogram from 10/06/2021. Right breast ultrasound from outside facility from 04/07/2022, 10/06/2021. Left breast ultrasound from outside facility from 04/07/2022, 10/06/2021. FINDINGS: Mammogram findings: Breast Composition: The breasts are heterogeneously dense, which may obscure small masses. There are no suspicious masses or suspicious calcifications. There are stable biopsy clips in the left central breast. No other significant findings. No significant change since prior study. Ultrasound was also obtained of the bilateral lateral breasts in the clinical area of concern. Ultrasound findings: Right breast: There are 2 adjacent complex cysts measuring 0.9 x 0.7 x 0.7 cm and 0.7 x 0.8 x 0.6 cm at the 10:00 position approximately 6 cm from the nipple. These do not demonstrate internal vascularity and appear to correlate to 2 adjacent complex cysts seen on prior ultrasound at the 9:00 position. The cysts appear to be stable from prior study. There are mildly prominent dilated ducts throughout the right breast. There is a cluster of dilated ducts between the 9:00 to 10:00 position, approximately 10 cm from the nipple. There are a few additional scattered simple cysts throughout the right lateral breast. No suspicious masses are identified. Left breast: There is a complex 1.1 x 1.2 x 1.1 cm cystic lesion in the left retroareolar breast at the 3:00 position which appears to demonstrate solid asymmetrical internal component. Solid component does not demonstrate internal vascularity. There are mildly prominent dilated ducts throughout the left breast. There are a few additional scattered simple cysts throughout the left lateral breast. US/Breast Complete Bilateral IMPRESSION: Stable diagnostic mammogram since 10/06/2021. Continued annual follow-up mammogram is recommended. Complex 1.1 x 1.2 x 1.1 cm cystic lesion in the left retroareolar breast at the 3:00 position demonstrates solid asymmetrical internal component. Although solid component does not demonstrate internal vascularity, biopsy is recommended to exclude malignancy. Mild prominent dilated ducts throughout the bilateral breasts. Although findings are probably benign given bilateral findings, there is a cluster of slightly more prominent dilated ducts in the right breast from the 9:00 to 10:00 position, approximately 10 cm from the nipple. A follow-up diagnostic ultrasound of the right breast is recommended in 6 months. 2 adjacent complex cysts in the right breast at the 10:00 position appear stable since prior study and are likely benign. These can also be assessed on follow-up diagnostic ultrasound of the right breast in 6 months. ASSESSMENT CATEGORY: BIRADS Category 4: Suspicious - Biopsy Should Be Considered. A letter regarding these results will be sent to the patient by the facility within 30 days. Recommendation: Recommendations are given in the impression above. Biopsy of complex left breast cystic lesion is recommended. Right breast findings can be followed with ultrasound in 6 months. Approximately 10% of breast cancers are not detected by mammography. A normal mammogram should not delay biopsy of a clinically suspicious abnormality. Electronically Signed: Abiel Charles DO at 16:25 EDT ,
== END | disposition home or self-care (01) ==
LOC: OPBI 09:06
PROVIDERS: PCP Student in an Organized Health Care Education/Training Program; Referring Provider Obstetrics & Gynecology; Visit Provider Obstetrics & Gynecology
DX: N64.4 Mastodynia (principal)
CPT/HCPCS: 76641; 77062; 77066; G0279

== ENCOUNTER → 2023-07-14 | Outpatient (CLI) | payer OTHER, SELFPAY ==
--- NOTE | 2023-07-14 | BRBX_PTH ---
PATIENT: POLINA RODRIGUEZ LOC: [facility] U#:[id number] AGE/SX: 48/F ROOM: RE07/14/[address]: Dr. Daniel Garcia MD : 1975 BED: DIS: 07/14/2023 SPEC #: [id number] RECD: 07/14/23 16:35 STATUS: HASEEB RESarah #: [id number] MELI: 07/14/23 00:[address]: Daniel Garcia DEPT: SURGICAL PATHOLOGY RECD BY: Tory Garcia ENTERED: 07/15/23 08:53 SP TYPE: BREAST BX OTHR DR: Dr. Fernando Pedersen, DO Tissues: Left breast, NOS Procedures: Surgery Specimen Level IV HEADER OPERATION: Left breast biopsy PRE-OP DIAGNOSIS: Left breast TISSUE SUBMITTED: Left breast tissue MICROSCOPIC DIAGNOSIS Left breast, core biopsy: Ductal dilatation. Negative for atypia or malignancy. See comment. SRI:prem 07/19/2023 COMMENT Correlation with clinical, radiologic findings and appropriate follow up are necessary. MICROSCOPIC DESCRIPTION Slides are reviewed. GROSS DESCRIPTION Received in fixative is one container labeled with the patient's name and designated left breast tissue. The specimen consists of multiple elongated fragments of garsia-yellow fibroadipose tissue that in aggregate measure 2.5 x 1.0 x 0.1 cm. The entire specimen is submitted in one cassette. / SJ:rg 07/15/2023 TC:5 CPT: 67995
== END | disposition home or self-care (01) ==
LOC: LABSPEC 16:55
PROVIDERS: PCP Student in an Organized Health Care Education/Training Program; Referring Provider Surgery; Visit Provider Surgery
DX: N64.9 Disorder of breast, unspecified (principal)
CPT/HCPCS: 88305

== ENCOUNTER → 2024-01-24 | Outpatient (CLI) | payer OTHER, SELFPAY ==
--- NOTE | 2024-01-24 08:04 | US_ITS ---
STUDY: ULTRASOUND BREAST - RIGHT REASON FOR EXAM: Female, 49 years old. 6 month follow-up examination. TECHNIQUE: Axial and longitudinal images of the RIGHT breast were performed with a high resolution ultrasound transducer. # OF IMAGES: 79 COMPARISON: Comparison is made with prior sonogram dated July 08, 2023. FINDINGS: RIGHT Breast: The lateral aspect of the right breast was examined with ultrasound. Multiple simple cysts are seen. The largest measures 9 mm x 9 mm x 6 mm. IMPRESSION: Multiple simple cysts are seen in the lateral aspect of the right breast. ASSESSMENT CATEGORY: BIRADS Category 2: Benign. A letter regarding these results will be sent to the patient by the facility within 30 days. Electronically Signed: Levar Monzon MD at 10:34 EDT , STUDY: ULTRASOUND BREAST - LEFT REASON FOR EXAM: Female, 49 years old. 6 month follow-up examination. TECHNIQUE: Axial and longitudinal images of the LEFT breast were performed with a high resolution ultrasound transducer. # OF IMAGES: 79 COMPARISON: Comparison is made with prior ultrasound of the breast dated July 08, 2023. FINDINGS: LEFT Breast: The lateral aspect of the left breast was examined with ultrasound. Multiple cysts are seen. The largest cyst measures 1 cm x 1 cm x 0.9 cm. US/Breast Limited Unilateral IMPRESSION: Multiple cysts. ASSESSMENT CATEGORY: BIRADS Category 2: Benign. A letter regarding these results will be sent to the patient by the facility within 30 days. Electronically Signed: Levar Monzon MD at 10:35 EDT ,
--- OUTSIDE RECORDS SUMMARY | 2024-01-24 08:08 | XMS RPT_ITS | CCD ---
Author Name Unknown Address [address] [place] [address] Organization [facility] Care Team Providers Care Poem Writer Name Role Phone CARISSA [facility] Admitting Unavailrobert FERRER, [facility] Attending Unavaila kasandra FERRER, [facility] Primary Care Unavaila Sav Carney Unavailable Unavailable Fernando Pedersen Unavailable Unavailable Fernando Pedersen DO Primary Care Provider Krishan Guevara Unavailable FERNANDO PEDERSEN DO Primary Care Physician Fernando Pedersen DO Primary Care Provider Krishan Guevara Unavailable Fernando Pedersen DO Primary Care Provider Krishan Guevara Unavailable Fernando Pedersen DO Primary Care Provider Krishan Guevara Unavailable Fernando Pedersen Primary Care Provider Fernando Pedersen Primary Care Provider FERNANDO PEDERSEN Primary Care Unavailable HIWOT, DESTINI Referring Unavailable PATY NOVA Attending Unavailable ZAN FERNANDES A Referring Unavailable FERNANDO PEDERSEN Primary Care Unavailable FERNANDO PEDERSEN Primary Care Unavailable HIWOT, DESTINI Referring Unavailable FERNANDO PEDERSEN Primary Care Unavailable HIWOT, DESTINI Attending Unavailable SKRABA, CORDT Referring Unavailable JOSELINE, CORDT Attending Unavailable FERNANDO PEDERSEN Primary Care Unavailable DOM, WAYNEIMAN A Referring Unavailable FERNANDO PEDERSEN Primary Care Unavailable MERLY COBIAN Attending UnavailTRINY Collier Attending Unavailable FERNANDO PEDERSEN Primary Care Unavailable HIWOT DESTINI Referring Unavailable ZAN FERNANDES Referring Unavailable ZAN FERNANDES Attending Unavailable FERNANDO PEDERSEN Primary Care Unavailable IVAN ALEXANDRE Attending Unavailable FERNANDO PEDERSEN Primary Care Unavailable IVAN ALEXANDRE Attending Unavailable FERNANDO PEDERSEN Primary Care Unavailable IVAN ALEXANDRE Attending Unavailable FERNANDO PEDERSEN Primary Care Unavailable IVAN ALEXANDRE Attending Unavailable FERNANDO PEDERSEN Primary Care Unavailable Allergies Allergy Classification Reported Allergen(s) Allergy Type Date of Onset Reaction(s) Facility (20 sources) carBAMazepine; Translations: [carbamazepine] Drug Allergy 07-05-20 14 [facility] (disorder) [facility] (20 sources) Chlorhexidine; Translations: [CHLORHEXIDINE] Drug Allergy 08-17-20 [facility] Work Phone: (20 sources) Adhesive Tape-Silicones; Translations: [ADHESIVE TAPE-SILICONES] Drug Intolerance 08-17-20 21 [facility] Work Phone: (20 sources) Octyl 2-Cyanoacrylate Drug Allergy 08-17-20 [facility] Work Phone: (11 sources) Carbamazepine; Translations: [CARBAMAZEPINE] Allergy to substance 07-05-20 14 [facility] (10 sources) Cyanoacrylate Allergy to substance 08-17-20 21 [facility] (1 source) 2-OCTYL CYANOACRYLATE; Translations: [2-OCTYL CYANOACRYLATE] Propensity to adverse reactions to drug (disorder) 08-17-20 [facility] Repository Medications Current Medications Medication Drug Class(es) Dates Sig (Normalized) Sig (Original) Allergy (Loratadine) 10 mg oral tablet (1 source) Start: 11-03-2020 Allergy (Loratadine) 10 mg oral tablet Dose : 10 mg = 1 tab(s), Oral, qDay, # 30 tab(s), 0 Refill(s) Start Date: 11/03/20 Status: Ordered baclofen 10 mg oral tablet (20 sources) gamma-Aminobutyri c Acid-ergic Agonist Start: 05-31-2017 End: 09-14-2024 take 1 tablet by mouth three times daily baclofen (Lioresal) 10 MG tablet Take 1 tablet (10 mg) by mouth 3 times daily. 270 tablet 3 09/15/2023 09/14/2024 Active Completed/Discontinued Medications Medication Drug Class(es) Dates Sig (Normalized) Sig (Original) Acetaminophen (20 sources) ACETAMINOPHEN (T YLENOL ORAL) Take by mouth. 0 Active Problems Active Problems Problem Classification Problem Date Documented Da te Episodic/Chronic Abdominal pain (4 sources) Generalized abdominal pain; Translations: [Generalized abdominal pain] Episodic Asthma (2 sources) Uncomplicated mild persistent asthma; Translations: [Mild persistent asthma, uncomplicated] Chronic Deficiency and other anemia (1 source) Iron deficiency anemia; Translations: [Iron deficiency anemia, unspecified] Episodic Disorders of lipid metabolism (20 sources) Hypercholesterolemi a; Translations: [Pure hypercholesterolemi a, unspecified] Onset: 12-03-2013 12-03-2013 Chronic Gastrointestinal hemorrhage (2 sources) Hematochezia; Translations: [Melena] Episodic Hemorrhoids (2 sources) External hemorrhoids; Translations: [Residual hemorrhoidal skin tags] Episodic Immunizations and screening for infectious disease (2 sources) Extractable nuclear antigen positive; Translations: [Other specified abnormal immunological findings in serum] Episodic Malaise and fatigue (1 source) Fatigue; Translations: [Other fatigue] Episodic Nausea and vomiting (3 sources) Postoperative nausea and vomiting; Translations: [Nausea with vomiting, unspecified] Episodic Nutritional deficiencies (20 sources) Vitamin D deficiency; Translations: [Vitamin D deficiency, unspecified] Onset: 12-03-2013 12-03-2013 Chronic Other connective tissue disease (1 source) Muscle pain; Translations: [Myalgia, unspecified site] Episodic Other connective tissue disease (3 sources) Pain in left foot; Translations: [Pain in left foot] Onset: 10-21-2023 09-21-2023 Episodic Other connective tissue disease (1 source) Plantar fasciitis; Translations: [Plantar fascial fibromatosis] 10-20-2023 Episodic Other connective tissue disease (1 source) Pain in left foot; Translations: [Foot pain, left] Onset: 10-21-2023 Episodic Other gastrointestinal disorders (2 sources) Alteration in bowel elimination; Translations: [Change in bowel habit] Episodic Other lower respiratory disease (4 sources) Multiple nodules of lung; Translations: [Other nonspecific abnormal finding of lung field] Episodic Other lower respiratory disease (4 sources) Dyspnea; Translations: [Shortness of breath] Episodic Other lower respiratory disease (1 source) Other nonspecific abnormal finding of lung field; Translations: [Lung nodules] Onset: 10-13-2023 Episodic Other nervous system disorders (1 source) H/O: Yañez's palsy; Translations: [Personal history of other diseases of the nervous system and sense organs] Episodic Other nervous system disorders (18 sources) Pain in area of anesthesia; Translations: [Trigeminal neuralgia] Onset: 12-23-2021 Episodic Other nervous system disorders (1 source) Left trigeminal neuralgia; Translations: [Trigeminal neuralgia] 06-09-2023 Episodic Other nervous system disorders (3 sources) Burning feet; Translations: [Other disturbances of skin sensation] Onset: 10-21-2023 09-21-2023 Episodic Other nervous system disorders (1 source) Paresthesia of foot ; Translations: [Anesthesia of skin] 10-20-2023 Episodic Other nervous system disorders (1 source) Other disturbances of skin sensation; Translations: [Burning sensation of feet] Onset: 10-21-2023 Episodic Other non-traumatic joint disorders (5 sources) Joint pain; Translations: [Pain in unspecified joint] Episodic Other non-traumatic joint disorders (3 sources) Hip pain; Translations: [Pain in right hip] Onset: 10-21-2023 09-21-2023 Episodic Other non-traumatic joint disorders (1 source) Pain in right hip; Translations: [Bilateral hip pain] Onset: 10-21-2023 Episodic Other non-traumatic joint disorders (1 source) Pain in left hip; Translations: [Bilateral hip pain] Onset: 10-21-2023 Episodic Other nutritional; endocrine; and metabolic disorders (20 sources) Obese class I; Translations: [Obesity, unspecified] Onset: 07-01-2021 07-01-2021 Chronic Other screening for suspected conditions (not mental disorders or infectious disease) (4 sources) Plain X-ray result abnormal; Translations: [Abnormal findings on diagnostic imaging of other specified body structures] Chronic Other screening for suspected conditions (not mental disorders or infectious disease) (4 sources) Patient encounter status; Translations: [Encounter for screening for malignant neoplasm of colon] Episodic Other upper respiratory disease (3 sources) Allergic rhinitis; Translations: [Allergic rhinitis, unspecified] Chronic Other upper respiratory disease (1 source) Seasonal allergy; Translations: [Other seasonal allergic rhinitis] Chronic Paralysis (1 source) Paralysis; 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] Chronic Residual codes; unclassified (20 sources) Obstructive sleep apnea syndrome; Translations: [Obstructive sleep apnea (adult) (pediatric)] Onset: 11-15-2018 11-15-2018 Chronic Residual codes; unclassified (2 sources) Family history of polyp of colon; Translations: [Family history of colonic polyps] Episodic Residual codes; unclassified (1 source) Generalized aches and pains; Translations: [Pain, unspecified] Episodic Unclassified (2 sources) Procedure; Translations: [Procedure] Onset: 06-09-2023 Past or Other Problems Problem Classification Problem Date Documented Da te Episodic/Chronic Cardiac dysrhythmias (20 sources) Palpitations; Translations: [Palpitations] Onset: 07-05-2014 07-05-2014 Episodic Nonspecific chest pain (20 sources) Atypical chest pain; Translations: [Other chest pain] Onset: 07-05-2014 07-05-2014 Episodic Other connective tissue disease (1 source) Weakness of face muscles; Translations: [Weakness, facial] Episodic Other nervous system disorders (20 sources) Trigeminal neuralgia; Translations: [Trigeminal neuralgia] Onset: 01-06-2017 01-06-2017 Episodic Other nervous system disorders (20 sources) Yañez's palsy; 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] Onset: 11-15-2018 11-15-2018 Episodic Other nervous system disorders (2 sources) Trigeminal neuralgia; Translations: [Trigeminal neuralgia] Onset: 08-27-2022 Episodic Other nutritional; endocrine; and metabolic disorders (1 source) H/O: raised blood lipids; Translations: [History of hyperlipidemia] Episodic Other nutritional; endocrine; and metabolic disorders (1 source) Personal history of other endocrine, nutritional and metabolic disease; Translations: [History of vitamin D deficiency] Episodic Unclassified (1 source) Patient encounter status; Translations: [Preop testing] NEGATED: Highlighted row has not occurred!Residual codes; unclassified (4 sources) Disease Episodic Results Test Name Value Interpretation Reference Range Facil ity Vital Signs Date Time Vital Sign Value Performing Clinician Facility 12-16-2023 08:04-0500 Body height 165.1 cm Ivan Alexandre MD Work Phone: [facility] 12-16-2023 08:04-0500 Body mass index (BMI) [Ratio] 31.62 kg/m2 Ivan Alexandre MD Work Phone: [facility] 12-16-2023 08:04-0500 Body temperature 97.3 [degF] Ivan Alexandre MD Work Phone: [facility] 12-16-2023 08:04-0500 Body weight 86.18 kg Ivan Alexandre MD Work Phone: [facility] 12-16-2023 08:04-0500 Diastolic blood pressure 74 mm[Hg] Ivan Alexandre MD Work Phone: [facility] 12-16-2023 08:04-0500 Heart rate 76 /min Ivan Alexandre MD Work Phone: [facility] 12-16-2023 08:04-0500 Systolic blood pressure 112 mm[Hg] Ivan Alexandre MD Work Phone: [facility] 10-18-2023 10:14-0500 Body weight 89 kg Zan Fernandes MD Work Phone: [facility] 10-18-2023 10:14-0500 Diastolic blood pressure 81 mm[Hg] Zan Fernandes MD Work Phone: [facility] 10-18-2023 10:14-0500 Heart rate 91 /min Zan Fernandes MD Work Phone: [facility] 10-18-2023 10:14-0500 SaO2% (BldA) [Mass fraction] 98 % Zan Fernandes MD Work Phone: [facility] 10-18-2023 10:14-0500 Systolic blood pressure 126 mm[Hg] Zan Fernandes MD Work Phone: [facility] 09-21-2023 08:01-0500 Body weight 90.36 kg Destini Hiwot COMMUNITY SERVICE ORGANIZATION DIRECTOR.TREKKING GUIDE Work Phone: [facility] 09-21-2023 08:01-0500 Diastolic blood pressure 78 mm[Hg] Destini Hiwot COMMUNITY SERVICE ORGANIZATION DIRECTOR.TREKKING GUIDE Work Phone: [facility] 09-21-2023 08:01-0500 Heart rate 81 /min Destini Zepedaman COMMUNITY SERVICE ORGANIZATION DIRECTOR.TREKKING GUIDE Work Phone: [facility] 09-21-2023 08:01-0500 Respiratory rate 16 /min Destiniradha Zepedaman COMMUNITY SERVICE ORGANIZATION DIRECTOR.TREKKING GUIDE Work Phone: [facility] 09-21-2023 08:01-0500 SaO2% (BldA) [Mass fraction] 98 % Destini Zepedaman COMMUNITY SERVICE ORGANIZATION DIRECTOR.TREKKING GUIDE Work Phone: [facility] 09-21-2023 08:01-0500 Systolic blood pressure 118 mm[Hg] Destini Zepedaman COMMUNITY SERVICE ORGANIZATION DIRECTOR.TREKKING GUIDE Work Phone: [facility] 09-15-2023 09:20-0400 Body temperature 97.59 [degF] Ivan Alexandre MD Work Phone: [facility] 09-15-2023 09:20-0400 Diastolic blood pressure 81 mm[Hg] Ivan Alexandre MD Work Phone: [facility] 09-15-2023 09:20-0400 Heart rate 79 /min Ivan Alexandre MD Work Phone: [facility] 09-15-2023 09:20-0400 Systolic blood pressure 127 mm[Hg] Ivan Alexandre MD Work Phone: [facility] 06-09-2023 10:37-0400 Body mass index (BMI) [Ratio] 31.62 kg/m2 Ivan Alexandre MD Work Phone: [facility] 06-09-2023 10:37-0400 Body temperature 97.9 [degF] Ivan Alexandre MD Work Phone: [facility] 06-09-2023 10:37-0400 Body weight 86.18 kg Ivan Alexandre MD Work Phone: [facility] 06-09-2023 10:37-0400 Diastolic blood pressure 79 mm[Hg] Ivan Alexandre MD Work Phone: [facility] 06-09-2023 10:37-0400 Heart rate 72 /min Ivan Alexandre MD Work Phone: [facility] 06-09-2023 10:37-0400 Systolic blood pressure 120 mm[Hg] Ivan Alexandre MD Work Phone: [facility] 03-10-2023 10:49-0400 Body mass index (BMI) [Ratio] 32.05 kg/m2 Ivan Alexandre MD Work Phone: [facility] 03-10-2023 10:49-0400 Body temperature 96.6 [degF] Ivan Alexandre MD Work Phone: [facility] 03-10-2023 10:49-0400 Body weight 87.36 kg Ivan Alexandre MD Work Phone: [facility] 03-10-2023 10:49-0400 Diastolic blood pressure 82 mm[Hg] Ivan Alexandre MD Work Phone: [facility] 03-10-2023 10:49-0400 Heart rate 91 /min Ivan Alexandre MD Work Phone: [facility] 03-10-2023 10:49-0400 Systolic blood pressure 137 mm[Hg] Ivan Alexandre MD Work Phone: [facility] 02-16-2023 09:34-0400 Body height 166.4 cm Cordt Skraba COMMUNITY SERVICE ORGANIZATION DIRECTOR.TREKKING GUIDE Work Phone: [facility] 02-16-2023 09:34-0400 Body weight 85.91 kg Cordt Skraba COMMUNITY SERVICE ORGANIZATION DIRECTOR.TREKKING GUIDE Work Phone: [facility] 02-16-2023 09:34-0400 Diastolic blood pressure 84 mm[Hg] Cordt Skraba COMMUNITY SERVICE ORGANIZATION DIRECTOR.TREKKING GUIDE Work Phone: [facility] 02-16-2023 09:34-0400 Heart rate 75 /min Cordt Skraba COMMUNITY SERVICE ORGANIZATION DIRECTOR.TREKKING GUIDE Work Phone: [facility] 02-16-2023 09:34-0400 SaO2% (BldA) [Mass fraction] 100 % Cordt Skraba COMMUNITY SERVICE ORGANIZATION DIRECTOR.TREKKING GUIDE Work Phone: [facility] 02-16-2023 09:34-0400 Systolic blood pressure 120 mm[Hg] Cordt Skraba COMMUNITY SERVICE ORGANIZATION DIRECTOR.TREKKING GUIDE Work Phone: [facility] 10-25-2022 11:41-0500 Body height 166.4 cm Pulm Wstr Work Phone: [facility] 10-25-2022 11:41-0500 Body weight 83.01 kg Pulm Wstr Work Phone: [facility] 10-25-2022 11:41-0500 Heart rate 82 /min Pulm Wstr Work Phone: [facility] 10-25-2022 11:41-0500 Respiratory rate 12 /min Pulm Wstr Work Phone: [facility] 10-25-2022 11:41-0500 SaO2% (BldA) [Mass fraction] 99 % Pulm Wstr Work Phone: [facility] 10-20-2022 09:24-0500 Body temperature 98.01 [degF] Destini Hiwot COMMUNITY SERVICE ORGANIZATION DIRECTOR.TREKKING GUIDE Work Phone: [facility] 10-20-2022 09:24-0500 Body weight 83.1 kg Destini Hiwot COMMUNITY SERVICE ORGANIZATION DIRECTOR.TREKKING GUIDE Work Phone: [facility] 10-20-2022 09:24-0500 Diastolic blood pressure 86 mm[Hg] Destini Hiwot COMMUNITY SERVICE ORGANIZATION DIRECTOR.TREKKING GUIDE Work Phone: [facility] 10-20-2022 09:24-0500 Heart rate 94 /min Destini Hiwot COMMUNITY SERVICE ORGANIZATION DIRECTOR.TREKKING GUIDE Work Phone: [facility] 10-20-2022 09:24-0500 Respiratory rate 16 /min Destini Hiwot COMMUNITY SERVICE ORGANIZATION DIRECTOR.TREKKING GUIDE Work Phone: [facility] 10-20-2022 09:24-0500 SaO2% (BldA) [Mass fraction] 98 % Destini Hiwot COMMUNITY SERVICE ORGANIZATION DIRECTOR.TREKKING GUIDE Work Phone: [facility] 10-20-2022 09:24-0500 Systolic blood pressure 118 mm[Hg] Destini Hiwot COMMUNITY SERVICE ORGANIZATION DIRECTOR.TREKKING GUIDE Work Phone: [facility] 10-13-2022 08:57-0500 Body height 165.1 cm Zan Fernandes MD Work Phone: [facility] 10-13-2022 08:57-0500 Body weight 83.01 kg Zan Fernandes MD Work Phone: [facility] 10-13-2022 08:57-0500 Diastolic blood pressure 84 mm[Hg] Zan Fernandes MD Work Phone: [facility] 10-13-2022 08:57-0500 Heart rate 87 /min Zan Fernandes MD Work Phone: [facility] 10-13-2022 08:57-0500 SaO2% (BldA) [Mass fraction] 98 % Zan Fernandes MD Work Phone: [facility] 10-13-2022 08:57-0500 Systolic blood pressure 132 mm[Hg] Zan Fernandes MD Work Phone: [facility] 09-01-2022 08:09-0400 Body height 165.1 cm Jono Wallace COMMUNITY SERVICE ORGANIZATION DIRECTOR.TREKKING GUIDE Work Phone: [facility] 09-01-2022 08:09-0400 Body weight 85.73 kg Somgirishta Rodrigo COMMUNITY SERVICE ORGANIZATION DIRECTOR.TREKKING GUIDE Work Phone: [facility] 09-01-2022 08:09-0400 Diastolic blood pressure 85 mm[Hg] Somgirishta Rodrigo COMMUNITY SERVICE ORGANIZATION DIRECTOR.TREKKING GUIDE Work Phone: [facility] 09-01-2022 08:09-0400 Heart rate 86 /min Somjita Rodrigo COMMUNITY SERVICE ORGANIZATION DIRECTOR.TREKKING GUIDE Work Phone: [facility] 09-01-2022 08:09-0400 Systolic blood pressure 151 mm[Hg] Somjita Rodrigo COMMUNITY SERVICE ORGANIZATION DIRECTOR.TREKKING GUIDE Work Phone: [facility] 06-28-2022 08:42-0400 Body weight 81.65 kg Jennifer Zurawick COMMUNITY SERVICE ORGANIZATION DIRECTOR.TREKKING GUIDE Work Phone: [facility] 06-28-2022 08:42-0400 Diastolic blood pressure 70 mm[Hg] Jennifer Zurawick COMMUNITY SERVICE ORGANIZATION DIRECTOR.TREKKING GUIDE Work Phone: [facility] 06-28-2022 08:42-0400 Heart rate 86 /min Jennifer Zurawick COMMUNITY SERVICE ORGANIZATION DIRECTOR.TREKKING GUIDE Work Phone: [facility] 06-28-2022 08:42-0400 Respiratory rate 14 /min Jennifer Zurawick COMMUNITY SERVICE ORGANIZATION DIRECTOR.TREKKING GUIDE Work Phone: [facility] 06-28-2022 08:42-0400 Systolic blood pressure 128 mm[Hg] Jennifer Zurawick COMMUNITY SERVICE ORGANIZATION DIRECTOR.TREKKING GUIDE Work Phone: [facility] 05-10-2022 08:31-0400 Body height 165.1 cm Ann-Marie [facility] PA-C Work Phone: [facility] 05-10-2022 08:31-0400 Body temperature 97.7 [degF] Ann-Marie Taylor PA-C Work Phone: [facility] 05-10-2022 08:31-0400 Body weight 78.93 kg Ann-Marie Taylor PA-C Work Phone: [facility] 05-10-2022 08:31-0400 Diastolic blood pressure 84 mm[Hg] Ann-Marie Taylor PA-C Work Phone: [facility] 05-10-2022 08:31-0400 Heart rate 91 /min Ann-Marie Taylor PA-C Work Phone: [facility] 05-10-2022 08:31-0400 SaO2% (BldA) [Mass fraction] 99 % Ann-Marie DELGADO-C Work Phone: [facility] 05-10-2022 08:31-0400 Systolic blood pressure 128 mm[Hg] Ann-Marie Vazquez PA-C Work Phone: [facility] 04-07-2022 13:01-0400 Body weight 79.38 kg Destini Hiwot COMMUNITY SERVICE ORGANIZATION DIRECTOR.TREKKING GUIDE Work Phone: [facility] 04-07-2022 13:01-0400 Diastolic blood pressure 82 mm[Hg] Destini Hiwot COMMUNITY SERVICE ORGANIZATION DIRECTOR.TREKKING GUIDE Work Phone: [facility] 04-07-2022 13:01-0400 Heart rate 85 /min Destini Hiwot COMMUNITY SERVICE ORGANIZATION DIRECTOR.TREKKING GUIDE Work Phone: [facility] 04-07-2022 13:01-0400 Respiratory rate 16 /min Destini Hiwot COMMUNITY SERVICE ORGANIZATION DIRECTOR.TREKKING GUIDE Work Phone: [facility] 04-07-2022 13:01-0400 SaO2% (BldA) [Mass fraction] 98 % Destini Hiwot COMMUNITY SERVICE ORGANIZATION DIRECTOR.TREKKING GUIDE Work Phone: [facility] 04-07-2022 13:01-0400 Systolic blood pressure 112 mm[Hg] Destini Hiwot COMMUNITY SERVICE ORGANIZATION DIRECTOR.TREKKING GUIDE Work Phone: [facility] 03-28-2022 04:05-0400 Diastolic blood pressure 67 mm[Hg] QUIQUE GRULLON DO [facility] 03-28-2022 04:05-0400 Systolic blood pressure 124 mm[Hg] QUIQUE FLOREZKA DO [facility] 03-28-2022 01:49-0400 Diastolic blood pressure 72 mm[Hg] QUIQUE GRULLON DO [facility] 03-28-2022 01:49-0400 Heart rate 75 /min QUIQUE DURESKA DO [facility] 03-28-2022 01:49-0400 Respiratory rate 16 /min QUIQUE DURESKA DO [facility] 03-28-2022 01:49-0400 Systolic blood pressure 117 mm[Hg] QUIQUE DURESKA DO [facility] 03-28-2022 00:15-0400 Diastolic blood pressure 83 mm[Hg] QUIQUE DURESKA DO [facility] 03-28-2022 00:15-0400 Heart rate 75 /min QUIQUE DURESKA DO [facility] 03-28-2022 00:15-0400 Respiratory rate 18 /min QUIQUE DURESKA DO [facility] 03-28-2022 00:15-0400 Systolic blood pressure 127 mm[Hg] QUIQUE DURESKA DO [facility] 03-27-2022 22:35-0400 Body temperature 98.78 [degF] QUIQUE DURESKA DO [facility] 03-27-2022 22:35-0400 Heart rate 99 /min QUIQUE DURESKA DO [facility] 03-27-2022 22:35-0400 Mean blood pressure 103 mm[Hg] QUIQUE GRULLON DO [facility] 03-27-2022 22:35-0400 Respiratory rate 20 /min QUIQUE GRULLON DO [facility] Encounters Encounter Date Encounter Type Care Provider Facility Start: 12-16-2023 End: 12-16-2023 ambulatory IVAN ALEXANDRE [facility] Start: 12-16-2023 End: 12-16-2023 Patient encounter procedure Ivan Alexandre MD Work Phone: [facility] Procedures Date Procedure Procedure Detail Performing Clinician Start: 07-08-2023 Mammography Vero Carley dle MA Start: 10-25-2022 Nitric oxide gas determination Zan Fernandes MD Work Phone: Start: 10-25-2022 Brncdilat rspse spmt ry pre&post-brncdilat admn Zan Fernandes MD Work Phone: Start: 09-29-2022 Ct thorax w/o contra st material Jono Wallace COMMUNITY SERVICE ORGANIZATION DIRECTOR.TREKKING GUIDE Work Phone: Start: 09-01-2022 End: 09-01-2022 Joint survey single view 2 or more joints Jono Wallace COMMUNITY SERVICE ORGANIZATION DIRECTOR.TREKKING GUIDE Work Phone: Start: 09-01-2022 Radiologic exam ches t 2 views Jono Wallace COMMUNITY SERVICE ORGANIZATION DIRECTOR.TREKKING GUIDE Work Phone: Start: 06-14-2022 Colonoscopy Jennifer Zur awick COMMUNITY SERVICE ORGANIZATION DIRECTOR.TREKKING GUIDE Work Phone: Start: 08-10-2021 Mammography Fernando Jonathan tanisha DO Work Phone: Start: 07-06-2021 Adult depression scr eening assessment Fernando Pedersen DO Work Phone: Start: 12-29-2020 Trigeminal nerve injected QUIQUE GRULLON DO Start: 11-17-2020 Trigeminal nerve injected QUIQUE GRULLON DO Start: 01-20-2018 Lipid 1996 panel - S karl or Plasma Fernando Slava DO Work Phone: Start: 11-05-2012 Hysterectomy QUIQUE JIMÉNEZ DO Start: 11-05-2011 Ablation - action (qualifier value) QUIQUE GRULLON DO Plan of Treatment Date Care Activity Detail Author Start: 2037 RSV Immunization aged 60 or older (1 - 1-dose 60+ series) RSV Immunization aged 60 or older (1 - 1-dose 60+ series) [facility] Start: 06-28-2032 DTaP/Tdap/Td Vaccines (4 - Td or Tdap) DTaP/Tdap/Td Vaccines (4 - Td or Tdap) [facility] Start: 06-28-2032 Urine microalbumin profile [facility] Start: 06-14-2032 Screening for malignant neoplasm of colon [facility] Start: 2027 Zoster Vaccines (1 of 2) Zoster Vaccines (1 of 2) [facility] Start: 10-20-2025 DIABETES SCREEN DIABETES SCREEN [facility] Start: 10-20-2025 Diabetes Screening Diabetes Screening [facility] Start: 06-28-2025 DIABETES SCREEN DIABETES SCREEN [facility] Start: 09-21-2024 Annual PCP Team Chronic Disease Visit Annual PCP Team Chronic Disease Visit [facility] Start: 07-08-2024 Screening for malignant neoplasm of breast Mammogram [facility] Start: 07-01-2024 DIABETES SCREEN DIABETES SCREEN [facility] Start: 03-16-2024 End: 03-16-2024 Patient encounter procedure 03/16/2024 7:30 AM EDT Procedure Visit [facility] [address] [place] [address] [place] [address] Ivan Alexandre MD [address] [place] [address] [place] [address] [facility] Start: 12-16-2023 End: 12-16-2023 Patient encounter procedure 12/16/2023 8:00 AM EST Procedure Visit [facility] [address] [facility] [place] [address] Ivan Alexandre MD [address] [place] [address] [place] [address] [facility] Start: 10-13-2023 End: 11-12-2023 Ct thorax w/o contrast material [facility] Work Phone: Immunizations Immunization Date Immunization Notes Care Provider Fa cili 06-28-2022 tetanus toxoid, redu sivakumar diphtheria toxoid, and acellular pertussis vaccine, adsorbed Jennifer Zurawick COMM[employer]ITY SERVICE ORGANIZATION DIRECTOR.TREKKING GUIDE Work Phone: [facility] 11-15-2018 influenza virus vaccine, unspecified formulation Fernando Pedersen DO Work Phone: [facility] 12-15-2016 influenza, injectabl e, quadrivalent, contains preservative Fernando Pedersen DO Work Phone: [facility] 12-15-2016 influenza virus vaccine, unspecified formulation Ivan Alexandre MD Work Phone: [facility] 02-16-2016 tetanus toxoid, redu sivakumar diphtheria toxoid, and acellular pertussis vaccine, adsorbed Jennifer Zurawick COMMUNITY SERVICE ORGANIZATION DIRECTOR.TREKKING GUIDE Work Phone: [facility] 06-28-2012 tetanus toxoid, redu sivakumar diphtheria toxoid, and acellular pertussis vaccine, adsorbed Fernando Pedersen DO Work Phone: [facility] Work Phone: Payers Date Payer Category Payer Unknown [employer] PPO [id number] 2021-Present [phone] [address] [place] [address] PPO [id number] 2021 Unknown [id number] 2021 Unknown [id number] Social History Date Type Detail Facility Start: 11-28-2013 End: 09-01-2022 Tobacco smoking status NHIS Never smoked tobacco [facility] Work Phone: Start: 11-28-2013 End: 09-01-2022 Tobacco use and exposure Smokeless tobacco non-user [facility] Work Phone: Start: 01-01-2022 End: 12-16-2023 Alcohol intake Current drinker of alcohol (finding) [facility] Start: 07-19-2021 End: 10-19-2022 History SDOH Alcohol Frequency [address] [facility] Start: 07-19-2021 End: 06-28-2022 History SDOH Alcohol Std Drinks [address] [facility] Start: 11-28-2013 History SDOH Alcohol Comment occaionally wine [facility] Start: 07-19-2021 End: 10-19-2022 History SDOH Social Connections Phone [address] [facility] Start: 07-19-2021 History SDOH Social Connections Get Together [address] [facility] Start: 07-19-2021 End: 06-28-2022 History SDOH Transport Med [address] [facility] Start: 07-19-2021 Education [address] [facility] Start: 1975 Sex Assigned At Not on file [facility] Start: 03-07-2022 End: 06-09-2023 Exposure to SARS-CoV-2 (event) Not sure [facility] Sex Assigned At Sex [facility] Start: 03-10-2023 End: 12-16-2023 History of Social function [facility] Start: 03-10-2023 End: 12-16-2023 Tobacco use panel [facility] Do you belong to any clubs or organizations such as episcopalian groups, unions, fraternal or athletic groups, or school groups? Yes [facility] Are you now , , , , never or living with a partner? [facility] Frequency of Alcohol Consumption Not on file [facility] How many standard drinks containing alcohol do you have on a typical day? 1 or 2 [facility] How often do you hav e 6 or more drinks on 1 occasion? Never [facility] Do you feel stress - tense, restless, nervous, or anxious, or unable to sleep at night because your mind is troubled all the time - these days [OSQ] Not at all [facility] (I/We) worried wheth er (my/our) food would run out before (I/we) got money to buy more. Never true [facility] In the past 12 month s, was there a time when you were not able to pay the mortgage or rent on time? No [facility] How often to you hav e a drink containing alcohol? 2-4 times a month [facility] NEGATED: Highlighted row - - [facility] Work Phone: Functional Status Date Assessment Result Facility 03-27-2022 Functional Status [facility]: Highlighted row Functional performance Functional status health issues are not documented Disease [facility] Work Phone: Mental Status Date Assessment Result Facility 03-27-2022 [facility]: Highlighted row Cognitive function [Interpretation] Cognitive status health issues are not documented Disease [facility] Work Phone: Clinical Notes 02-17-2022 to 12-16-2023 Jill Curran MA - 12/16/2023 8:00 AM Javed Alexandre MD - 12/16/2023 8:00 AM Ping Curran MA - 12/16/2023 8:00 AM Ping Curran MA - 12/16/2023 8:00 AM ESTPatient Instructions Note Date & Type Note Facility 12-16-2023 Note DEPARTMENT OF NEUROL OGY BOTOX PROCEDURE NOTE FOR TRIGEMINAL NEURALGIA Patient: Caity Rodriguez : 1975 Diagnosis: Trigeminal neuralgia of left side of face [G50.0] Procedure: Botox injections into the left trigeminal region. V2 and V3. At this time we are going to inject the nasalis muscle patient have a mild to moderately left facial droop.. We will inject simulans doses in the other areas. Patient reported that his facial pain has increased significantly in the last 3 months. It is not clear whether Botox or Lyrica are working well. Therefore we are going to repeat Botox injections we will increase patient on Lyrica and we are going to start patient on Dilantin to see if we can control better her pain. Prior to procedure risks, benefits, alternatives, and potential side effects were reviewed with patient. Specifically reviewed possible risk of temporary muscle weakness. All questions were answered, patient expressed understanding, verbal consent given for procedure. No numbing spray applied/removed. Botox was injected with the parameters below: With the patient in sitting position, she received Botox injections in the neck and skull muscles. Patient receive the following doses: 1. L Temporalis 50 units 2. Left zygomatic region 10 injections 3 units each 3. Left mandibular region 6 injections 3 units each Total units injected 98 units units. Units discarded 2 units. Comments: Patient received treatment with Botox injections into the left trigeminal region. No complication were observed after the procedure. Patient reported that her pain has increased Lyrica is a still working well . Patient reported that Dilantin is not working well. Currently she does not feel any different between taking it or not. Therefore we are going to discontinue Dilantin over the next 2 weeks and at the same time we are going to retry patient on Trileptal patient will start taking left 150 mg p.o. twice daily for a week and we will increase by 150 mg a week to 300 mg twice a day. Patient will let us know in 4 weeks for that bilaterally is improving patient pain. In addition today we are going to repeat the Botox injections at the same doses again and patient does not feel any significant improvement this will be the last time that we just patient with Botox. [x] Pt tolerated procedure well. Pt advised to avoid exercise or strenuous physical activity for 24 hours. Post treatment expectations reviewed in detail. IVAN ALEXANDRE MD [facility] 12-16-2023 History of Present illness Narrative DEPARTMENT OF NEUROLOGY BOTOX PROCEDURE NOTE FOR TRIGEMINAL NEURALGIA Date: 12/16/2023 Patient: Caity Rodriguez : 1975 Diagnosis: Trigeminal neuralgia of left side of face [G50.0] Procedure: Botox injections into the left trigeminal region. V2 and V3. At this time we are going to inject the nasalis muscle patient have a mild to moderately left facial droop.. We will inject simulans doses in the other areas. Patient reported that his facial pain has increased significantly in the last 3 months. It is not clear whether Botox or Lyrica are working well. Therefore we are going to repeat Botox injections we will increase patient on Lyrica and we are going to start patient on Dilantin to see if we can control better her pain. Prior to procedure risks, benefits, alternatives, and potential side effects were reviewed with patient. Specifically reviewed possible risk of temporary muscle weakness. All questions were answered, patient expressed understanding, verbal consent given for procedure. No numbing spray applied/removed. Botox was injected with the parameters below: With the patient in sitting position, she received Botox injections in the neck and skull muscles. Patient receive the following doses: 1. L Temporalis 50 units 2. Left zygomatic region 10 injections 3 units each 3. Left mandibular region 6 injections 3 units each Total units injected 98 units units. Units discarded 2 units. Comments: Patient received treatment with Botox injections into the left trigeminal region. No complication were observed after the procedure. Patient will return to the neurology clinic in 3 months for further evaluation thank you [x] Pt tolerated procedure well. Pt advised to avoid exercise or strenuous physical activity for 24 hours. Post treatment expectations reviewed in detail. IVAN ALEXANDRE MD DEPARTMENT OF NEUROLOGY BOTOX PROCEDURE NOTE FOR TRIGEMINAL NEURALGIA Patient: Caity Rodriguez : 1975 Diagnosis: Trigeminal neuralgia of left side of face [G50.0] Procedure: Botox injections into the left trigeminal region. V2 and V3. At this time we are going to inject the nasalis muscle patient have a mild to moderately left facial droop.. We will inject simulans doses in the other areas. Patient reported that his facial pain has increased significantly in the last 3 months. It is not clear whether Botox or Lyrica are working well. Therefore we are going to repeat Botox injections we will increase patient on Lyrica and we are going to start patient on Dilantin to see if we can control better her pain. Prior to procedure risks, benefits, alternatives, and potential side effects were reviewed with patient. Specifically reviewed possible risk of temporary muscle weakness. All questions were answered, patient expressed understanding, verbal consent given for procedure. No numbing spray applied/removed. Botox was injected with the parameters below: With the patient in sitting position, she received Botox injections in the neck and skull muscles. Patient receive the following doses: 1. L Temporalis 50 units 2. Left zygomatic region 10 injections 3 units each 3. Left mandibular region 6 injections 3 units each Total units injected 98 units units. Units discarded 2 units. Comments: Patient received treatment with Botox injections into the left trigeminal region. No complication were observed after the procedure. Patient reported that her pain has increased Lyrica is a still working well . Patient reported that Dilantin is not working well. Currently she does not feel any different between taking it or not. Therefore we are going to discontinue Dilantin over the next 2 weeks and at the same time we are going to retry patient on Trileptal patient will start taking left 150 mg p.o. twice daily for a week and we will increase by 150 mg a week to 300 mg twice a day. Patient will let us know in 4 weeks for that bilaterally is improving patient pain. In addition today we are going to repeat the Botox injections at the same doses again and patient does not feel any significant improvement this will be the last time that we just patient with Botox. [x] Pt tolerated procedure well. Pt advised to avoid exercise or strenuous physical activity for 24 hours. Post treatment expectations reviewed in detail. IVAN ALEXANDRE MD Administrations This Visit onabotulinumtoxin A (BOTOX) injection 100 Units Admin Date 12/16/2023 Action Given Dose 98 Units Route IntraMUSCular Site Other Administered By [facility] [place]ing Provider: Ivan Alexandre MD [facility][NOTE 2]:[id number] Lot#: [id number] Supervisor Parking Lot: [employer] Patient Supplied?: No, buy and bill documented in this encounter [facility] 12-16-2023 History of Present illness Narrative Error DEPARTMENT OF NEUROLOGY BOTOX PROCEDURE NOTE FOR TRIGEMINAL NEURALGIA Patient: Caity Rodriguez : 1975 Diagnosis: Trigeminal neuralgia of left side of face [G50.0] Procedure: Botox injections into the left trigeminal region. V2 and V3. At this time we are going to inject the nasalis muscle patient have a mild to moderately left facial droop.. We will inject simulans doses in the other areas. Patient reported that his facial pain has increased significantly in the last 3 months. It is not clear whether Botox or Lyrica are working well. Therefore we are going to repeat Botox injections we will increase patient on Lyrica and we are going to start patient on Dilantin to see if we can control better her pain. Prior to procedure risks, benefits, alternatives, and potential side effects were reviewed with patient. Specifically reviewed possible risk of temporary muscle weakness. All questions were answered, patient expressed understanding, verbal consent given for procedure. No numbing spray applied/removed. Botox was injected with the parameters below: With the patient in sitting position, she received Botox injections in the neck and skull muscles. Patient receive the following doses: 1. L Temporalis 50 units 2. Left zygomatic region 10 injections 3 units each 3. Left mandibular region 6 injections 3 units each Total units injected 98 units units. Units discarded 2 units. Comments: Patient received treatment with Botox injections into the left trigeminal region. No complication were observed after the procedure. Patient reported that her pain has increased Lyrica is a still working well . Patient reported that Dilantin is not working well. Currently she does not feel any different between taking it or not. Therefore we are going to discontinue Dilantin over the next 2 weeks and at the same time we are going to retry patient on Trileptal patient will start taking left 150 mg p.o. twice daily for a week and we will increase by 150 mg a week to 300 mg twice a day. Patient will let us know in 4 weeks for that bilaterally is improving patient pain. In addition today we are going to repeat the Botox injections at the same doses again and patient does not feel any significant improvement this will be the last time that we just patient with Botox. [x] Pt tolerated procedure well. Pt advised to avoid exercise or strenuous physical activity for 24 hours. Post treatment expectations reviewed in detail. IVAN ALEXANDRE MD Administrations This Visit onabotulinumtoxin A (BOTOX) injection 100 Units Admin Date 12/16/2023 Action Given Dose 98 Units Route IntraMUSCular Site Other Administered By [facility] [place]ing Provider: Ivan Alexandre MD [facility] [place][NOTE 2]:[id number] Lot#: [id number] Supervisor Parking Lot: [employer] Patient Supplied?: No, buy and bill documented in this encounter [facility] 11-30-2023 Note HNO ID: [id number] Author: MERLY COBIAN APRN.TREKKING GUIDE Service: ? Author Type: Nurse Practitioner Type: Progress Notes Filed: 11/30/2023 13:39 Note Text: [facility] New Patient Evaluation Visit performed virtually, with the patient's permission. I have communicated my name and active licensure. The patient's identity and physical location were verified at the time of this visit. Either the patient or their legal key account representative has been informed of the risks and benefits of -- and alternatives to -- treatment through a remote evaluation and consents to proceed with the evaluation remotely. PATIENT NAME: Caity Rodriguez DATE OF SERVICE: November 29, 2023 CONSULTING PROVIDER: Zan Fernandes [address] [facility] [address] REASON FOR CONSULT: Zan Fernandes sends the patient for an opinion about MARIIA. My findings and recommendations will be transmitted electronically via shared medical record to the consulting provider. HPI: Caity Rodriguez is a 48 year old female. Sleep-related history: She has MARIIA and a CPAP device, which she has been on for ~ 10 years. She has a nasal mask, however, mouth is open when sleeping. She cannot tolerate FFM d/t trigeminal neuralgia pain. Even has tried chin strap, but this also exacerbates her trigeminal neuralgia pain. When sleeping without CPAP, she wakes suddenly w/ heart racing and BADILLO, and occasional chest pain. She can typically ease symptoms by breathing slowly. She is referred by Pulmonary Medicine for evaluation for Inspire. Per Pulmonary notes, she had HST that showed no MARIIA. She was seeing ENT and had a HST last year that did not demonstrate sleep apnea. ([place], [place] - Dr. Garrett Rutledge) CPAP INFO: DME: [employer] -per patient, DME does not have information from new device (DS 2) Maykel device - remediated (DS 2) Mask: nasal mask - still somewhat bothersome to her trigeminal neuralgia Use: 6 hours per night x 7 nights per week SLEEP-WAKE SCHEDULE She is a self-described morning person. Bedtime: 9-930 PM. She has a hard time falling asleep. Time to fall asleep: 20-30 mins She often falls asleep on the couch when watching TV Wake time: 5 AM, with an alarm. (Typically wakes before alarm) After falling asleep: she wakes up 1-2 time(s) per night, because of choking or gasping for air and dry mouth. Doesn't typically have trouble falling back asleep. On weekends, she tends to stay up until 11 PM and sleeps until 5 AM. Average total sleep time (in a 24 hour period): 5-6 hours. SLEEP-RELATED DETAILS Preferred sleep position: back, side, or prone (can't sleep on L side d/t trigeminal neuralgia) Breathing disturbances and other behaviors during sleep: snoring and stopping breathing during sleep. Bruxism: Yes - clenching ; no h/o mouth guard GERD or aspiration: No Waking up with heart pounding or racing: Yes - fairly regularly Anxiety or rumination: Not routinely She does not report having an urge to move the legs in the evening (when resting) that is accompanied or caused by uncomfortable and/or unpleasant sensations in the legs. She has not been told that she has leg kicking during sleep. She denies any history of parasomnias. Excessive daytime sleepiness / fatigue is a problem. Excessive Daytime sleepiness/fatigue has been a problem for 3 years, worse in the psst 6-12 months. She had a severe viral illness (possibly COVID-19) ~ 2019. She fell out of a tree as a child w/ LOC ; was not evaluated in hospital after this event. She does not report persistent sleep paralysis (maybe a handful of times throughout life) or sleep-related hallucinations or cataplexy. WAKE-RELATED DETAILS She does not work. She is on disability for trigeminal neuralgia. She does have difficulty with memory or concentration. x6-12 months She denies falling asleep or dozing off when driving. She will sometimes feel drowsy when driving distances > 30 [address] not drive much. She does take unintentional naps. Frequency: at least once daily, Duration: 20 mins. Naps are not refreshing. She does drink 6-12 caffeinated beverages per day. Alcohol use: Occasionally a glass of wine - few times per month Tobacco use: Denies Illicit drug use: Denies She has gained 10-15 pounds in the past 1.5 year. Patient Questionnaires Sleep Scores Sleep Questions 11/28/2023 Reason for visit: Sleep apnea, Difficulty falling or staying asleep or poor sleep quality, Excessive daytime sleepiness Average hours slept in 24 hours: 5 Accidents or near accidents due to drowsy drivin [place] Sleepiness Scale 11/28/2023 Score 20 (severe daytime sleepiness) PROMIS CAT Sleep Disturbance 11/28/2023 PROMIS Sleep Disturbance T-Score 55 (within normal limits) PROMIS Sleep Disturbance Percentile 31% Insomnia Severity Index 11/28/2023 Score 14 PHQ-9 06/15/2017 11/15/2018 11/28/2023 Score 5 0 2 PROMIS Global Health - (T-Score (more content not included)... [facility] 10-21-2023 Note HNO ID: [id number] Author: PATY NOVA, ROSINA Service: ? Author Type: Physical Therapist Type: Progress Notes Filed: 11/28/2023 12:51 Note Text: 11/28/2023 [facility]ORTS THER[facility] PHYSICAL THERAPY DISCONTINUANCE OF CARE Plan of Care Period: Start of Care Date: 10/21/23 Last Visit Date: 10/21/2023 Therapy Program: Patient did not return for follow up care as planned. Please refer to last visit note for interventions provided for this episode of care. Assessment: Unable to formally assess goal achievement. Reason for Discontinuation of Care: Patient has not returned to therapy or scheduled additional follow-up appointments. Paty Nova, PT Episode Visit Count: 1 Therapist That Will Accept/Oversee The Plan Of Care: Paty Nova Start of Care Date: 10/21/23 Onset Date: 06/21/23 Plan of Care Certification Date: 10/21/23 Next Certification Due Date: 11/25/23 Patient Identified by Name and Date of : Yes REHABILITATION AND SPORTS THERAPY PHYSICAL THERAPY EVALUATION PLAN OF CARE: Assessment: Caity Rodriguez presents with diagnosis of left foot pain, bilateral hip pain, and burning sensation of feet that interferes with walking, sitting, bending (reclining back, elevating the feet) . She presents with impairments in ADL's, balance, flexibility, gait, independence in exercise, joint mobility, overall function, patient reported outcome measures, posture, range of motion, sensation, strength, symptom management, and tissue tenderness. PROMIS? (Patient-Reported Outcomes Measurement Information System) scores were reviewed and physical function domain and self efficacy domain identified as a rehabilitation concern. Prognosis for therapy is Good due to: good support system/ coping skills, acuteness of condition, good overall health status, current objective clinical presentation, Prognosis may be limited due to limitedtolerance to activity, coping skills, chronic nature of impairments, clinical presentation, multiple co- morbidities . She will benefit from skilled therapy services to meet the goals established for this plan of care as noted below. Classification Low Back Pain Subgroup Classification: Specific exercise subgroup: recommended visits 8. Specific Exercies Subgroup Classification based on: directional preference, centralization Goals for Episode of Care: created on 10/21/23 through 12/02/23 Independent in home exercises. Patient will decrease pain rating by 2 points to meet minimal clinical important difference for numeric pain rating scale. Restore pain-free lumbar ROM to minimal to no limitation extension to allow for transitional movements and improved posture/gait. Stand / Walk 30 min to 45 min without increased pain/symptoms. Sleep through night without pain/symptoms. Sit 1-2 hours without pain/symptoms to allow for seated activities/rest Maintain proper sitting posture throughout session Patient Goals: reduce pain with bending, sitting Planned Interventions, Frequency, and Duration: Current Frequency: 1x/week Duration: 6 weeks Total Number of Visits Planned: 6 Planned Treatment Interventions: Therapeutic exercise (58578), Neuromuscular re-education (72678) PLAN FOR NEXT VISIT: assess symptom response to repeated lumbar extension Patient demonstrates good understanding of plan of care and treatment. The above goals and plan of care were discussed and agreed upon by patient/family. SUBJECTIVE: for B hip and foot pain that onset about 3-4 mo. ago without specific injury. Pt. reports noticing it increase with bending or reclining back with her feet elevated in a chair. Walking does not make it worse. Feels best when standing upright. Increased burning in the BLE hips and feet with sitting. Tylenol and Rx'd mobic not helpful. Pt. admits to just working through the pain. Patient Goals: reduce pain with bending, sitting Functional Limitations: walking, sitting, bending (reclining back, elevating the feet) Prior Level of Function: Independent without limitations Intake Information: Prescription present Previous Treatment: (tylenol, meloxicam) Falls Interview: No positive findings with falls interview Red Flags Vertebral Fracture Clinical Reasoning: No identified risk factors Abdominal Aortic Aneurysm Clinical Reasoning: No identified risk factors. Cancer Clinical Reasoning: No identified risk factors. Infection Clinical Reasoning: No identified risk factors. Cauda Equina Syndrome Clinical Reasoning: No identified risk factors. Red Flags - Cervical Cancer Clinical Reasoning: No identified risk factors. Infection Clinical Reasoning: No identified risk factors. Spine History Symptoms Location at Onset: Foot Symptoms Since Onset: Worsening Pain is Worse Always: Sitting, Bending, Prolonged positions (reclining) Pain is Better Always: Standing, Walking, On the Move Sleep Affected by Pain: Pain tona (more content not included)... [facility] 10-21-2023 History of Present illness Narrative Program_ID:[id number] Access Code: [email or web address] URL: [email or web address] Date: 10-21-2023 Prepared By: Paty Nova Program Notes Exercises - Standing Lumbar Extension - 3-5 x daily - 7 x weekly - 3-4 sets - 10 reps Episode Visit Count: 1 Therapist That Will Accept/Oversee The Plan Of Care: Paty Nova Start of Care Date: 10/21/23 Onset Date: 06/21/23 Plan of Care Certification Date: 10/21/23 Next Certification Due Date: 11/25/23 Patient Identified by Name and Date of : Yes REHABILITATION AND SPORTS THERAPY PHYSICAL THERAPY EVALUATION PLAN OF CARE: Assessment: Caity Rodriguez presents with diagnosis of left foot pain, bilateral hip pain, and burning sensation of feet that interferes with walking, sitting, bending (reclining back, elevating the feet) . She presents with impairments in ADL's, balance, flexibility, gait, independence in exercise, joint mobility, overall function, patient reported outcome measures, posture, range of motion, sensation, strength, symptom management, and tissue tenderness. PROMIS (Patient-Reported Outcomes Measurement Information System) scores were reviewed and physical function domain and self efficacy domain identified as a rehabilitation concern. Prognosis for therapy is Good due to: good support system/ coping skills, acuteness of condition, good overall health status, current objective clinical presentation, Prognosis may be limited due to limited tolerance to activity, coping skills, chronic nature of impairments, clinical presentation, multiple co- morbidities . She will benefit from skilled therapy services to meet the goals established for this plan of care as noted below. Classification Low Back Pain Subgroup Classification: Specific exercise subgroup: recommended visits 8. Specific Exercies Subgroup Classification based on: directional preference, centralization Goals for Episode of Care: created on 10/21/23 through 12/02/23 Independent in home exercises. Patient will decrease pain rating by 2 points to meet minimal clinical important difference for numeric pain rating scale. Restore pain-free lumbar ROM to minimal to no limitation extension to allow for transitional movements and improved posture/gait. Stand / Walk 30 min to 45 min without increased pain/symptoms. Sleep through night without pain/symptoms. Sit 1-2 hours without pain/symptoms to allow for seated activities/rest Maintain proper sitting posture throughout session Patient Goals: reduce pain with bending, sitting Planned Interventions, Frequency, and Duration: Current Frequency: 1x/week Duration: 6 weeks Total Number of Visits Planned: 6 Planned Treatment Interventions: Therapeutic exercise (89038), Neuromuscular re-education (53271) PLAN FOR NEXT VISIT: assess symptom response to repeated lumbar extension Patient demonstrates good understanding of plan of care and treatment. The above goals and plan of care were discussed and agreed upon by patient/family. SUBJECTIVE: for B hip and foot pain that onset about 3-4 mo. ago without specific injury. Pt. reports noticing it increase with bending or reclining back with her feet elevated in a chair. Walking does not make it worse. Feels best when standing upright. Increased burning in the BLE hips and feet with sitting. Tylenol and Rx'd mobic not helpful. Pt. admits to just working through the pain. Patient Goals: reduce pain with bending, sitting Functional Limitations: walking, sitting, bending (reclining back, elevating the feet) Prior Level of Function: Independent without limitations Intake Information: Prescription present Previous Treatment: (tylenol, meloxicam) Falls Interview: No positive findings with falls interview Red Flags Vertebral Fracture Clinical Reasoning: No identified risk factors Abdominal Aortic Aneurysm Clinical Reasoning: No identified risk factors. Cancer Clinical Reasoning: No identified risk factors. Infection Clinical Reasoning: No identified risk factors. Cauda Equina Syndrome Clinical Reasoning: No identified risk factors. Red Flags - Cervical Cancer Clinical Reasoning: No identified risk factors. Infection Clinical Reasoning: No identified risk factors. Spine History Symptoms Location at Onset: Foot Symptoms Since Onset: Worsening Pain is Worse Always: Sitting, Bending, Prolonged positions (reclining) Pain is Better Always: Standing, Walking, On the Move Sleep Affected by Pain: Pain keeps from falling asleep, Pain awakens (CPAP and trigeminal neuralgia) Pain: Pain Pain Level: 3 Pain Location: Low Back/Lumbar Spine- Midline, Hip - Left, Hip - Right Description: Burning, Sharp Additional Pain Information : Location 2 Pain Level 2: 2 Pain Location 2: Foot - Left, Foot - Right Description 2: Burning Frequency 2: Sitting Post Treatment Pain Post Treatment Pain Level: 3 Post Treatment Pain Location: Hip - Left, Hip - Right, Low Back/Lumbar Spine- Midline Post Treatment Pain Score 2: 0/10 Post Treatment Pain Location 2: Foot - Right, Foot - Left Post Treatment Pain Description 2: Tingling PROMIS Scales Higher is Better 10/11/2023 08/30/2022 Phys Func - Score 36 (moderate dysfunction) 40 (mild dysfunction) Phys Func - Percentile 8% 16% Self-Eff Symptom - Score 41 (Average) - Self-Eff Symptom - Percentile 18% - T-scores: mean of general population = 50. 5 points is clinically meaningfully difference Percentiles provide an indication of how the patient's score ranks in relation to the general population. Higher percentile rankings indicate better function/quality of life. 50th percentile is the average of the general population and indicates half of respondents had a worse score. OBJECTIVE MEASURES WITH LEVEL OF FUNCTION: Posture / Alignment Posture: Decreased lumbar lordosis Sitting Posture: Erect, Perched, Sits on left ischial tuberosity, Left lateral shift Effects of Posture Correction: worse Sensation - Lower Extremity LE Light Touch Sensation: Grossly Intact Sensation - Lumbar Sensation: Grossly Intact Lumbar Spine AROM Lumbar Extension: Major limitation, Pain during movement, Produces Lumbar R Side [place]: Normal Lumbar L Side [place]: Moderate limitation Lumbar R Side-Bend: Minimal limitation Lumbar L Side-Bend: Moderate limitation Lumbar R Rotation: Normal Lumbar L Rotation: Normal Repeated Test Movements - Lumbar EBEN - Symptoms During: centralizing, decreases EBEN - Symptoms After: better, increase ROM, centralized Static Testing - Lumbar Sit Slouched: worse Stand Erect: better Lying Prone In Extension: worse LE AROM Lumbar Spine Evaluated?: Yes Gait Gait: Independent Gait Distance (feet): 160 Gait Device: None Gait Deviations: General Deviations General Deviations/Observations: Lateral sway increased, Xochitl decreased, Flexed trunk posture, Step length decreased, Trunk Control Decreased, Wide base of support Gait Observation: BLE foot ER Education: Education Learning Preferences: Demonstration, Explanation, Performance, Printed Materials Barriers: Acuity of Illness, Emotions Learning/educational needs: Safety, Plan of Care, Posture, Gait Training, Home exercise program Education Provided: Yes, see treatment interventions for education provided Education Provided To: Patient Education Mode/Type: Demonstration, Explanation/Discussion, Literature/Printed Materials, Performance Response to Education/Teach Back: States/Identifies, Return Demonstration TREATMENT: PT Treatment Interventions: Therapeutic Exercise, Self-Retirement Management, Gait Training Evaluation Therapeutic Exercise: 1: Exercises - Standing Lumbar Extension - 3-5 x daily - 7 x weekly - 3-4 sets - 10 reps - 1 hold (burning resolved, BLE feel fine. ) 2: prone lay 2 min - worse 3: ABNER 2 min - worse Skilled Intervention: Patient was educated in proper exercise technique and purpose for exercises. Skilled judgment was used in selection of appropriate interventions. Provided written instruction for home exercise program to facilitate proper performance and compliance. Correct performance of therapeutic exercises was facilitated with verbal, visual, and tactile cuing. Educated patient on rationale for performing exercises in regards to decreasing fatigue , increase ease of ADL, and ROM and function . Patient education as noted. Gait Training: Distance (feet): 180 Gait Cues: heel strike, increase hip extension/step length, avoid lateral sway Assistive Device: none Assist Level: superivsion, verbal cues, demonstration Skilled Intervention: Patient was provided supervision during pre-gait/gait training to prevent falls and insure safety. Correct performance of home program was facilitated with verbal and visual cueing. Self-Retirement Management: 1: discussed directional preference - extension seems to reduce symptoms 2: discussed goal to centralize symtpoms and improve lumbar extension AROM 3: discussed avoiding bending/flexion movements that increase symptoms, avoid prolonged postures that cause increased pain Skilled Intervention: Skilled judgment in the selection of proper modification for activity of daily living/home management based on clinical presentation, deficits, and needs. Provided written instruction for activities of daily living techniques to facilitate proper performance and compliance. Reviewed patient specific diagnosis in relation to activities of daily living/home management. Activity progression based on professional judgement. Reviewed and educated patient on additions/changes for home program as noted above with an (*). Provided written instruction for home program to facilitate proper performance and compliance. Correct performance of home program was facilitated with verbal and visual cueing. Billing * Evaluation Low Complexity: 1 Unit Therapeutic Exercise Treatment Minutes: 10 Self-Care/Home Management Treatment Minutes: 10 Gait Training Treatment Minutes: 5 Skilled Treatment Time Minutes (timed and untimed codes): 45 Total Session Time (minutes): 45 Session Start Time : 744 Session Stop Time : 829 Paty Nova PT documented in this encounter [facility] 10-20-2023 Note HNO ID: [id number] Author: Triny Rubalcava Service: ? Author Type: Physician Type: Progress Notes Filed: 10/20/2023 8:24 AM Note Text: Consultation requested by Dr. Mi for an opinion regarding foot pain. My final recommendations will be communicated back to the requesting physician by way of shared Medical record or letter to requesting physician via US mail. Initial Podiatric Office Visit: Chief Complaint: This 48 year old female who presents with chief complaint:burning sensation of b/f feet. Also complains of left heel pain HPI Patient presents to clinic for evaluation of b/l feet. Complains of burning of b/l foot. The entire foot is burning. The burning is only present when she is resting or sitting down. Patient does not experience any burning when she is walking. This burning has been present for 4-5 months. She does experience right hip pain. Was told she may have disk disease and is starting therapy tomorrow. Patient does complain of left posterior heel. Patient states this has been going on for about 3-4 months. Patient does have history of bunion surgery 10-11 years ago. PAIN EVALUATION 10/20/2023 0802 Pain Level: 3 first thing in the morning and walking on it makes it worse Pain Location: Heel-Left Description: Sharp Duration Amount of Time: 3 Duration Units: Months Frequency: Continuous Intervention/Comfort measure: Reposition Hemoglobin A1C (%) Date Value 12/19/2014 5.0 PCP: Fernando Pedersen DO PAST MEDICAL HISTORY Diagnosis Date Cholelithiasis with chronic cholecystitis 08/2021 Endometriosis Gall stone Hypercholesteremia MARIIA (obstructive sleep apnea) [facility] fx. [phone] Seasonal allergies Trigeminal neuralgia syndrome Currently on Dr. Matthias Baptiste Neurologist Vitamin D deficiency Current Outpatient Medications Medication Sig fluticasone propionate (FLOVENT DISKUS) 250 mcg/actuation inhaler Inhale 1 Puff as instructed two times a day. levalbuterol tartrate HFA 45 mcg/actuation inhaler Inhale 1-2 Puffs as instructed every 4 hours as needed for wheezing/shortness of breath. phenytoin ER (DILANTIN) 100 mg ER capsule Take 100 mg by mouth three times a day. Prescribed by Neurologist MYRBETRIQ 25 mg Tb24 Take 1 tablet by mouth every afternoon. esomeprazole (NEXIUM) 40 mg capsule TAKE 1 CAPSULE BY MOUTH EVERY DAY BEFORE BREAKFAST 1/2 HOUR BEFORE MEAL ondansetron orally disintegrating (ZOFRAN ODT) 4 mg disintegrating tablet Take 1 tablet by mouth every 6 hours as needed for nausea/vomiting. meloxicam (MOBIC) 15 mg tablet TAKE 1 TABLET BY MOUTH ONCE DAILY WITH FOOD Cholecalciferol, Vitamin D3, 50 mcg (2,000 unit) cap Take 1 capsule by mouth once daily. ferrous sulfate 325 mg (65 mg iron) tablet Take 1 tablet by mouth twice daily with meals. pregabalin (LYRICA) 150 mg capsule 150 mg. MULTIVITAMIN ORAL Take by mouth once daily. CPAP Initiate CPAP @ 10 cm of water with humidification, heated hose. Nasal cannula - women's small , filters, tubing, humidifier and lifetime supplies. New head gear. Resmed Airsense 10 Autoset Machine loratadine (CLARITIN) 10 mg tablet Take 10 mg by mouth once daily. ACETAMINOPHEN (TYLENOL ORAL) Take by mouth. baclofen (LIORESAL) 10 mg tablet Take 1 tablet by mouth three times daily as needed (Face pain). Ascorbic Acid (VITAMIN C) 1,000 mg tablet Take 1 tablet by mouth once daily. lamoTRIgine (LAMICTAL) 100 mg tablet Take 75 mg by mouth three times daily. (Patient not taking: Reported on 09/21/2023) hydrocortisone (PREPARATION H HYDROCORTISONE) 1 % cream Apply to affected area twice daily. (Patient not taking: Reported on 10/20/2023) No current facility-administered medications for this visit. ALLERGIES Allergen Reactions Adhesive Tape-Silic* Hives Steri-strips Chlorhexidine Rash Widespread itchy rash developed following surgical site prep for lap brain Dermabond [2-Octyl * Hives Raised, red itchy welts developed at every port site where this was used following laparoscopic cholecystectomy Tegretol [Carbamaze* Hives PAST SURGICAL HISTORY Procedure Laterality Date BRAIN SURGERY HX Microvascular decompression CORRECT BUNION,OTHR METHODS 2011,2010 both feet L'SCOPE CHOLECYSTECTOMY 08/14/2021 LUMPECTOMY/RADIOTHERAPY DIAG MAMM/A10 2005 benign PAST SURGICAL HISTORY OF wisdom teeth PAST SURGICAL HISTORY OF exploratory laproscopy REMOVAL GALLBLADDER 08/14/2021 S BALLOON,UTERINE ABLATION 20939 2009 STABISM SURG,PREV EYE SURG,NOT MUSC 1980 both eyes VAGINAL HYSTERECTOMY UTERUS 250 GM/< 06/2013 Hysterectomy, vaginal FAMILY HISTORY Problem Relation Age of Onset Breast Cancer Mother 60, diagnosed unknown age Cancer Father kidney Hypertension Father Hypertension Paternal Grandmother Diabetes Paternal Grandmother Alzheimer's Disease Paternal Grandfather Social History Tobacco Use Smoking status: Never (more content not included)... [facility] 10-20-2023 Note HNO ID: [id number] Author: Saida Atkins RN Service: ? Author Type: Registered Nurse Type: Progress Notes Filed: 10/20/2023 8:24 AM Note Text: Patient presents with: Right Foot - New: Burning sensation in bilateral feet Left Foot - New: Sharp pain in left heel Xray in EPIC Patient is here for left heel pain and a burning sensation in both feet. Has had previous bunion surgery to both feet. Xrays completed 09/21/2023. AMB ROOMING INTAKE FLOWSHEET DATA Pain Pain Level: 3 (first thing in the morning and walking on it makes it worse) Pain Location: Heel-Left Description: Sharp Duration Amount of Time: 3 Duration Units: Months Frequency: Continuous Intervention/Comfort measure: Reposition Saida Atkins RN [facility] 10-20-2023 Instructions JohnTriny godinez - 10/20/2023 8:21 AM EST Images from the original note were not included. What is Plantar Fasciitis? Plantar fasciitis is the most common cause of heel pain. The pain is caused by inflammation of the plantar fascia. If you strain your plantar fascia, it becomes weak, swollen and irritated (inflamed). The resulting pain may be isolated in the heel or may appear at different points on the bottom of the foot, from time to time; it may occur in one foot or both. Some think that plantar fasciitis pain is caused by irritation of nerves from tissue swelling or inflammation, but it is debatable. Plantar fasciitis is common in middle-aged people; it also occurs in younger people who are on their feet a lot, such as athletes or soldiers. The plantar fascia is a strong band of connective tissue that extends from the base of the toes, along the bottom of the foot, to the bottom of the heel (calcaneous bone); it acts like a bowstring to maintain the arch of the foot. What are heel spurs? The inflammatory reaction of the heel bone may produce spike-like projections of new bone, called heel spurs. The spurs sometimes show on X-rays. They neither cause the initial pain nor do they cause the initial problem. However, later, having to walk on spurs may cause sharp pain. What causes plantar fasciitis? Plantar fasciitis is caused by straining the ligament that supports your arch. Repeated strain can cause tiny tears in the ligament. These lead to pain and swelling. During walking, the plantar fascia experiences tension up to twice the body weight with each step. While this is normal, those who spend much time on their feet, such as nurses, parachute officer/waiters, and mail carriers, often experience plantar fasciitis. Athletes involved in tennis or other racquet sports, race walking, jogging or running also show a higher incidence of plantar fasciitis than do those participating in other activities. Thus, it's clear that plantar fasciitis is predominantly an overuse injury. In fact, any activity that results in prolonged tension and stress on the plantar fascia may cause plantar fasciitis. It is possible that changes in footwear may play a role in causing plantar fasciitis, no matter what activity is occurring. Those who are overweight are prone to plantar fasciitis. This is true even for sedentary people who get little physical activity. Abnormalities of the foot and ankle joints may predispose some individuals to development of plantar fasciitis (specifically, over pronation of the subtalar joint). Contributing Factors * Flat feet * Toe running, hill running * Sudden weight increase * High-arched, rigid feet * Soft terrain, e.g. running on sand * Obesity * Pronated feet (rolled inward) * Sudden increase in activity * Family tendency * Poor shoe support * Worn out or poorly fitted shoes * Increasing age * Walking, standing or running for long periods of time, especially on hard surfaces. How is the Injury Treated? Rest Your Feet: Limit, or if possible, stop activities that are causing your heel pain. Try to avoid running or walking on hard surfaces, such as concrete. Use pain as your guide. If your foot is too painful, rest it. Ice: Ice the sore area for 30 to 60 minutes, several times a day, to reduce inflammation and relieve pain. Apply a plastic bag of crushed ice (or a bag of frozen peas) over a towel. Ice the sore area for 15 minutes after activity/exercise. Application of heat is not generally recommended, as heat expands the bone and connective tissue, perhaps exerting greater pressure on nerves and thereby increasing pain. If heat is used, follow it with ice. Medication: If your condition developed recently, anti-inflammatory/analgesic medication, combined with heel pads (see below) may be all that is necessary to relieve pain and to reduce inflammation. If no pain relief has occurred after 2-3 weeks, however, your doctor may inject either cortisone or local anesthetic directly into the tender area. Exercises: Do simple exercises, such as calf stretches and towel stretches (see below) several times a day, especially when you first get up in the morning. These can help your ligament become more flexible and strengthen the muscles that support your arch. Shoes: Poorly fitting shoes can cause plantar fasciitis. The best type of shoe to wear is a good walking or running shoe with good shock absorption and excellent arch support. You should choose the one that fits the best. [place] with your athletic shoes to find a pair that is comfortable and causes fewer symptoms. Put your shoes on as soon as you get out of bed; going barefoot or wearing slippers may make your pain worse. Good brands include (but are not limited to): New Balance, Asics, Saucony, SAS and Merrel s. Taping: Your doctor may tape your foot to maintain the arch. This takes some of the tension off the plantar fascia. Weight Loss: If your weight is putting extra stress on your feet, your doctor may encourage you to try a weight-loss program. Orthotics: An orthotic insole is a molded piece of rubber, plastic, or other material that you insert into your shoe. It corrects the alignment of your foot and cushions your foot from excessive pounding. These may be prescription or non-prescription. Prescription orthotics are custom-fitted and may fit better and control pain better, but are very expensive. Night Splints: A night splint holds the foot with the toes pointed up and the ankle at a 90-degree angle. This position applies a constant, gentle stretch to the plantar fascia. Corticosteroid Shots: Steroids may be injected into the tender area to reduce inflammation. REHAB Exercises to stretch the plantar fascia, the calf muscles, and the Achilles tendon. Tightness of the muscles of the calves may contribute to plantar fasciitis, so stretching the calf muscles is important to rehabilitation, as is stretching of the plantar fascia itself. Plantar fascial stretches Assisted Dorsiflexion/Plantar Fascia Stretch: Sit on the floor or ground, barefoot, with both legs outstretched. Use a towel or elastic band and wrap it around the ball (and not the toes) of the affected foot. Use the towel or elastic band to provide resistance to upward movement of the forefoot. Pull foot upward (toward your body) with the help of the elastic band or towel, and then return to the starting position. Ten repetitions are recommended. Perform the sequence at least three times a day. Alternate Plantar Fascia Stretch: Sit upright in a chair, barefoot. Place the ankle of the affected foot on your opposite knee. Using the same hand as the affected foot, reach across and grab the toes. Flex the ankle toward and pull the toes toward the morales. To test the stretch, place the thumb of your hand on the bottom of the foot. You should be able to feel the cord-like plantar fascia, running the length of the foot. Hold the stretch for a count of 10, then relax. Repeat 10 times. Do the sequence at least three times a day. Achilles/Calf Stretches Strengthening the muscles of the calves may contribute to successful rehabilitation of plantar fasciitis, as well as prevent reoccurrence. The exercises below will help strengthen the calf muscles. Calf and Achilles Tendon Stretch (Gastrocnemius Stretch): Face a wall, standing an arm's length away. Place one foot back. Place both hands on the wall. Bend the elbows and knee of your forward leg, keeping the heel of the backward foot on the floor and keeping your body straight (aligned), until your forehead nearly touches the wall, or until significant stretch is felt in the muscles of the calf of the backward leg. Hold this position for 10 to 15 seconds. Extend elbows (straighten your arms and stand upright again) and maintain this position for 10 seconds. Repeat this cycle 15 to 20 times. Switch legs and repeat the exercise. \ Powerstep Original Full length. Can purchase at [employer] and boots,shoes and more here in [place], [employer] in [place] or [place]. Also can find in [employer] in [facility]. Powersteps can also be purchased online, starting around $45.00 If you have a metatarsal or dancer pad for your feet apply the pad directly to the insole so you can interchange between your shoes. Find a shoe with a removable insole and take this out and replace with your powerstep insole. Always bring powersteps with you when shopping for shoes so that you can make sure that everything fits well together documented in this encounter [facility] 10-20-2023 History of Present illness Narrative Images from the original note were not included. Consultation requested by Dr. Mi for an opinion regarding foot pain. My final recommendations will be communicated back to the requesting physician by way of shared Medical record or letter to requesting physician via US mail. Initial Podiatric Office Visit: Chief Complaint: This 48 year old female who presents with chief complaint:burning sensation of b/f feet. Also complains of left heel pain HPI Patient presents to clinic for evaluation of b/l feet. Complains of burning of b/l foot. The entire foot is burning. The burning is only present when she is resting or sitting down. Patient does not experience any burning when she is walking. This burning has been present for 4-5 months. She does experience right hip pain. Was told she may have disk disease and is starting therapy tomorrow. Patient does complain of left posterior heel. Patient states this has been going on for about 3-4 months. Patient does have history of bunion surgery 10-11 years ago. PAIN EVALUATION 10/20/2023 0802 Pain Level: 3 first thing in the morning and walking on it makes it worse Pain Location: Heel-Left Description: Sharp Duration Amount of Time: 3 Duration Units: Months Frequency: Continuous Intervention/Comfort measure: Reposition Hemoglobin A1C (%) Date Value 12/19/2014 5.0 PCP: Fernando Pedersen DO PAST MEDICAL HISTORY Diagnosis Date Cholelithiasis with chronic cholecystitis 08/2021 Endometriosis Gall stone Hypercholesteremia MARIIA (obstructive sleep apnea) [facility] fx. [phone] Seasonal allergies Trigeminal neuralgia syndrome Currently on Dr. Matthias Baptiste Neurologist Vitamin D deficiency Current Outpatient Medications Medication Sig fluticasone propionate (FLOVENT DISKUS) 250 mcg/actuation inhaler Inhale 1 Puff as instructed two times a day. levalbuterol tartrate HFA 45 mcg/actuation inhaler Inhale 1-2 Puffs as instructed every 4 hours as needed for wheezing/shortness of breath. phenytoin ER (DILANTIN) 100 mg ER capsule Take 100 mg by mouth three times a day. Prescribed by Neurologist MYRBETRIQ 25 mg Tb24 Take 1 tablet by mouth every afternoon. esomeprazole (NEXIUM) 40 mg capsule TAKE 1 CAPSULE BY MOUTH EVERY DAY BEFORE BREAKFAST 1/2 HOUR BEFORE MEAL ondansetron orally disintegrating (ZOFRAN ODT) 4 mg disintegrating tablet Take 1 tablet by mouth every 6 hours as needed for nausea/vomiting. meloxicam (MOBIC) 15 mg tablet TAKE 1 TABLET BY MOUTH ONCE DAILY WITH FOOD Cholecalciferol, Vitamin D3, 50 mcg (2,000 unit) cap Take 1 capsule by mouth once daily. ferrous sulfate 325 mg (65 mg iron) tablet Take 1 tablet by mouth twice daily with meals. pregabalin (LYRICA) 150 mg capsule 150 mg. MULTIVITAMIN ORAL Take by mouth once daily. CPAP Initiate CPAP @ 10 cm of water with humidification, heated hose. Nasal cannula - women's small , filters, tubing, humidifier and lifetime supplies. New head gear. Resmed Airsense 10 Autoset Machine loratadine (CLARITIN) 10 mg tablet Take 10 mg by mouth once daily. ACETAMINOPHEN (TYLENOL ORAL) Take by mouth. baclofen (LIORESAL) 10 mg tablet Take 1 tablet by mouth three times daily as needed (Face pain). Ascorbic Acid (VITAMIN C) 1,000 mg tablet Take 1 tablet by mouth once daily. lamoTRIgine (LAMICTAL) 100 mg tablet Take 75 mg by mouth three times daily. (Patient not taking: Reported on 09/21/2023) hydrocortisone (PREPARATION H HYDROCORTISONE) 1 % cream Apply to affected area twice daily. (Patient not taking: Reported on 10/20/2023) No current facility-administered medications for this visit. ALLERGIES Allergen Reactions Adhesive Tape-Silic* Hives Steri-strips Chlorhexidine Rash Widespread itchy rash developed following surgical site prep for lap brain Dermabond [2-Octyl * Hives Raised, red itchy welts developed at every port site where this was used following laparoscopic cholecystectomy Tegretol [Carbamaze* Hives PAST SURGICAL HISTORY Procedure Laterality Date BRAIN SURGERY HX Microvascular decompression CORRECT BUNION,OTHR METHODS 2011,2010 both feet L'SCOPE CHOLECYSTECTOMY 08/14/2021 LUMPECTOMY/RADIOTHERAPY DIAG MAMM/A10 2005 benign PAST SURGICAL HISTORY OF wisdom teeth PAST SURGICAL HISTORY OF exploratory laproscopy REMOVAL GALLBLADDER 08/14/2021 S BALLOON,UTERINE ABLATION 50823 2008 STABISM SURG,PREV EYE SURG,NOT MUSC 1980 both eyes VAGINAL HYSTERECTOMY UTERUS 250 GM/< 06/2013 Hysterectomy, vaginal FAMILY HISTORY Problem Relation Age of Onset Breast Cancer Mother 60, diagnosed unknown age Cancer Father kidney Hypertension Father Hypertension Paternal Grandmother Diabetes Paternal Grandmother Alzheimer's Disease Paternal Grandfather Social History Tobacco Use Smoking status: Never Smokeless tobacco: Never Vaping Use Vaping Use: Never used Substance Use Topics Alcohol use: Yes Comment: occaionally wine Drug use: No REVIEW OF SYSTEMS GENERAL: Negative for Malaise, significant weight loss, fever RESPIRATORY: Negative for cough, wheezing and shortness of breath CARDIOVASCULAR: Negative for chest pain, leg swelling and palpitations GI: Negative for abdominal discomfort, blood in stools or black stools and change in bowel habits : Negative for dysuria, frequency and incontinence MUSCULOSKELETAL: Negative for joint pain or swelling, back pain, and muscle pain. SKIN: Negative for lesions, rash, and itching. HEMATOLOGY/LYMPHOLOGY Negative for prolonged bleeding, bruising easily, and swollen nodes. ENDOCRINE: Negative for cold or heat intolerance, polyuria, polydipsia and goiter. NEURO: negative Physical Exam: Constitutional: Pt is a well developed 48 year old female who is alert, oriented and cooperative Eyes: Following during examination. No redness or drainage. Respiratory: RR normal and nonlabored. Even breathing. No evidence of distress or shortness of breath. Psychology: Patient is engaged during conversation. Normal affect and mood. Does not appear depressed or anxious during encounter. Vascular: Dorsalis pedis and posterior tibial pulses palpable as b/l Capillary Fill time < 5 seconds to digits 1-5 b/l Skin temperature warm to warm proximal to distal b/l Hair growth present to digits Neurological: intact light touch/epicritic sensation - tinel b/l intact protective sensation no significant neurological deficits Dermatological: Nails 1-5 b/l appear normal. Webspaces clean and dry 1-4 b/l. Skin appears well hydrated and supple. good color, texture, turgor. No open lesions present. No callosities present. Musculoskeletal/Orthopaedic: Patient has pain to palpation of left plantar medial calcaneal tubercle Foot type is neutral structurally AJ ROM is full with knee extended and flexed 1st MPJ is full when loaded and no pain or crepitus are noted with ROM. MTJ, STJ are full and free of pain and crepitus. +5/5 muscle strength dorsiflexion, plantarflexion, inversion, eversion b/l Radiographs: 3 views b/l foot reviewed October 20, 2023: I have personally reviewed and interpreted these XR myself: no acute fracture. Plantar heel spur present left ASSESSMENT: (M72.2) Plantar fasciitis (primary encounter diagnosis) (R20.0, R20.2) Numbness and tingling of both feet PLAN: 1. Initial Office Visit - A thorough review of the patient's PMH and Podiatric physical exam was completed. 2. Patient advised to perform stretching excercises, icing, and to make appropriate shoe gear changes to include wearing athletic-type shoes with supportive insoles. No barefoot walking. Patient also given written instructions on how to correctly perform the stretching of the achilles tendon/calf stretches, and the heel spur/plantar fasciitis regimen. 3. Patient advised to seek wide, deep toe box, accomodative, comfortable, lace-up, athletic/walking type footwear that includes motion control characteristics for support and cushion that need to be worn at all times when weight-bearing. Shoes should be tested for torsional stability as well as proper bending at the toebox rather than at the midfoot. Good quality shoes such as, but not limited to, New Balance or Asics are examples of more proper foot gear. 4. Patient recommended to get powerstep insoles for proper support of the arch in order to alleviate the tension and stress on the plantar fascia associated with normal daily walking. Patient advised that these modalities used in conjunction with stretching and icing are able to alleviate most symptoms from this condition. 5. If pain fails to subside, consider steroid injection 6. Discussed numbness in both feet. Will try inserts. If condition continues, consider emg Triny Rubalcava DPM Podiatry [address] [facility] [address] Dept: [phone] Dept Patient presents with: Right Foot - New: Burning sensation in bilateral feet Left Foot - New: Sharp pain in left heel Xray in EPIC Patient is here for left heel pain and a burning sensation in both feet. Has had previous bunion surgery to both feet. Xrays completed 09/21/2023. AMB ROOMING INTAKE FLOWSHEET DATA Pain Pain Level: 3 (first thing in the morning and walking on it makes it worse) Pain Location: Heel-Left Description: Sharp Duration Amount of Time: 3 Duration Units: Months Frequency: Continuous Intervention/Comfort measure: Reposition Saida Atkins RN documented in this encounter [facility] 10-18-2023 Note HNO ID: [id number] Author: Zan Fernandes MD Service: ? Author Type: Physician Type: Progress Notes Filed: 10/18/2023 10:38 AM Note Text: [facility] ESTABLISHED PATIENT OFFICE VISIT 10/18/2023 Patient Name: Caity Rodriguez PRIMARY CARE PHYSICIAN: Fernando Pedersen DO CHIEF COMPLAINT: lung nodules, allergic rhinitis, trigeminal neuralgia, chest tightness of exertion, MARIIA on cpap HISTORY OF PRESENT ILLNESS: Since the last visit with me on 09/2022, Ms. Rodriguez has been doing well. Has been using levalbuterol as-needed around once a week Her insurance did not approve a maintenance inhaler Had seen an ENT and working with him for inspire Had a home sleep study that did not show evidence of sleep apnea as per patient-asking for advice [place] 09/[address] chest 09/2023 Stable subcentimeter pulmonary nodules, measuring less than 6 mm in size compared to 2021 Social History Tobacco Use Smoking status: Never Smokeless tobacco: Never Vaping Use Vaping Use: Never used Substance Use Topics Alcohol use: Yes Comment: occaionally wine Drug use: No ALLERGIES ALLERGIES Allergen Reactions Adhesive Tape-Silic* Hives Steri-strips Chlorhexidine Rash Widespread itchy rash developed following surgical site prep for lap brain Dermabond [2-Octyl * Hives Raised, red itchy welts developed at every port site where this was used following laparoscopic cholecystectomy Tegretol [Carbamaze* Hives CURRENT OUTPATIENT MEDICATIONS phenytoin ER (DILANTIN) 100 mg ER capsule Take 100 mg by mouth three times a day. Prescribed by Neurologist MYRBETRIQ 25 mg Tb24 Take 1 tablet by mouth every afternoon. levalbuterol tartrate HFA 45 mcg/actuation inhaler INHALE 1-2 PUFFS INSTRUCTED EVERY 4 HOURS NEEDED FOR WHEEZING/SHORTNESS OF BREATH. esomeprazole (NEXIUM) 40 mg capsule TAKE 1 CAPSULE BY MOUTH EVERY DAY BEFORE BREAKFAST 1/2 HOUR BEFORE MEAL ondansetron orally disintegrating (ZOFRAN ODT) 4 mg disintegrating tablet Take 1 tablet by mouth every 6 hours as needed for nausea/vomiting. meloxicam (MOBIC) 15 mg tablet TAKE 1 TABLET BY MOUTH ONCE DAILY WITH FOOD Cholecalciferol, Vitamin D3, 50 mcg (2,000 unit) cap Take 1 capsule by mouth once daily. ferrous sulfate 325 mg (65 mg iron) tablet Take 1 tablet by mouth twice daily with meals. Ascorbic Acid (VITAMIN C) 1,000 mg tablet Take 1 tablet by mouth once daily. lamoTRIgine (LAMICTAL) 100 mg tablet Take 75 mg by mouth three times daily. (Patient not taking: Reported on 09/21/2023) hydrocortisone (PREPARATION H HYDROCORTISONE) 1 % cream Apply to affected area twice daily. pregabalin (LYRICA) 150 mg capsule 150 mg. MULTIVITAMIN ORAL Take by mouth once daily. CPAP Initiate CPAP @ 10 cm of water with humidification, heated hose. Nasal cannula - women's small , filters, tubing, humidifier and lifetime supplies. New head gear. Resmed Airsense 10 Autoset Machine loratadine (CLARITIN) 10 mg tablet Take 10 mg by mouth once daily. ACETAMINOPHEN (TYLENOL ORAL) Take by mouth. baclofen (LIORESAL) 10 mg tablet Take 1 tablet by mouth three times daily as needed (Face pain). REVIEW OF SYSTEMS Review of Systems Constitutional: Negative for chills, fever and weight loss. Respiratory: Negative for cough, hemoptysis, sputum production, shortness of breath and wheezing. The remainder of review of systems was negative. PHYSICAL EXAMINATION: BP 126/81 (BP Site: Left Arm, BP Position: Sitting, BP Cuff Size: Regular Adult) Pulse 91 Wt 89 kg (196 lb 3.4 oz) SpO2 98% BMI 32.15 kg/m? General appearance: Well appearing, alert, in no acute distress, well-hydrated, well nourished. Lungs: Lungs clear to auscultation. No wheezing, rhonchi, rales Heart: RRR without murmur, gallop, or rubs. No ectopy. No edema. Peripheral pulses: Normal Abdomen: Normal abdominal exam, Abdomen soft, non-tender. Bowel sounds normal. No masses, organomegaly Extremities: Normal, Warm, and No cyanosis, no clubbing, Nontender Neuro: no focal deficit Psychiatry: Alert, oriented x3 DATA: Diagnostic tests reviewed for today's visit, including films and specimens, were personally reviewed by me Most recent labs and imaging results. No results found. CT CHEST WO IVCON Result Date: 10/17/2023 IMPRESSION: No acute pulmonary process is identified. Stable subcentimeter pulmonary nodules, measuring less than 6 mm in size. There is no new pulmonary nodule. No kahlil lymphadenopathy is seen within the chest. Leather Cleaner: NAVA Transcribe Date/Time: Oct 17 2023 11:33A Dictated by : JOCELYN STOVALL MD This examination was interpreted and the report reviewed and electronically signed by: JOCELYN STOVALL MD on Oct 17 2023 11:38AM EST IMPRESSION: 1. Asthma (primary diagnosis) Mild airflow obstruction PFTs September 2022 Continue levalbuterol Start Flovent (more content not included)... [facility] 10-18-2023 History of Present illness Narrative Images from the original note were not included. [facility] ESTABLISHED PATIENT OFFICE VISIT 10/18/2023 Patient Name: Caity Rodriguez PRIMARY CARE PHYSICIAN: Fernadno Pedersen DO CHIEF COMPLAINT: lung nodules, allergic rhinitis, trigeminal neuralgia, chest tightness of exertion, MARIIA on cpap HISTORY OF PRESENT ILLNESS: Since the last visit with me on 09/2022, Ms. Rodriguez has been doing well. Has been using levalbuterol as-needed around once a week Her insurance did not approve a maintenance inhaler Had seen an ENT and working with him for inspire Had a home sleep study that did not show evidence of sleep apnea as per patient-asking for advice [place] 09/[address] chest 09/2023 Stable subcentimeter pulmonary nodules, measuring less than 6 mm in size compared to 2021 Social History Tobacco Use Smoking status: Never Smokeless tobacco: Never Vaping Use Vaping Use: Never used Substance Use Topics Alcohol use: Yes Comment: occaionally wine Drug use: No ALLERGIES ALLERGIES Allergen Reactions Adhesive Tape-Silic* Hives Steri-strips Chlorhexidine Rash Widespread itchy rash developed following surgical site prep for lap brain Dermabond [2-Octyl * Hives Raised, red itchy welts developed at every port site where this was used following laparoscopic cholecystectomy Tegretol [Carbamaze* Hives CURRENT OUTPATIENT MEDICATIONS phenytoin ER (DILANTIN) 100 mg ER capsule Take 100 mg by mouth three times a day. Prescribed by Neurologist MYRBETRIQ 25 mg Tb24 Take 1 tablet by mouth every afternoon. levalbuterol tartrate HFA 45 mcg/actuation inhaler INHALE 1-2 PUFFS INSTRUCTED EVERY 4 HOURS NEEDED FOR WHEEZING/SHORTNESS OF BREATH. esomeprazole (NEXIUM) 40 mg capsule TAKE 1 CAPSULE BY MOUTH EVERY DAY BEFORE BREAKFAST 1/2 HOUR BEFORE MEAL ondansetron orally disintegrating (ZOFRAN ODT) 4 mg disintegrating tablet Take 1 tablet by mouth every 6 hours as needed for nausea/vomiting. meloxicam (MOBIC) 15 mg tablet TAKE 1 TABLET BY MOUTH ONCE DAILY WITH FOOD Cholecalciferol, Vitamin D3, 50 mcg (2,000 unit) cap Take 1 capsule by mouth once daily. ferrous sulfate 325 mg (65 mg iron) tablet Take 1 tablet by mouth twice daily with meals. Ascorbic Acid (VITAMIN C) 1,000 mg tablet Take 1 tablet by mouth once daily. lamoTRIgine (LAMICTAL) 100 mg tablet Take 75 mg by mouth three times daily. (Patient not taking: Reported on 09/21/2023) hydrocortisone (PREPARATION H HYDROCORTISONE) 1 % cream Apply to affected area twice daily. pregabalin (LYRICA) 150 mg capsule 150 mg. MULTIVITAMIN ORAL Take by mouth once daily. CPAP Initiate CPAP @ 10 cm of water with humidification, heated hose. Nasal cannula - women's small , filters, tubing, humidifier and lifetime supplies. New head gear. Resmed Airsense 10 Autoset Machine loratadine (CLARITIN) 10 mg tablet Take 10 mg by mouth once daily. ACETAMINOPHEN (TYLENOL ORAL) Take by mouth. baclofen (LIORESAL) 10 mg tablet Take 1 tablet by mouth three times daily as needed (Face pain). REVIEW OF SYSTEMS Review of Systems Constitutional: Negative for chills, fever and weight loss. Respiratory: Negative for cough, hemoptysis, sputum production, shortness of breath and wheezing. The remainder of review of systems was negative. PHYSICAL EXAMINATION: BP 126/81 (BP Site: Left Arm, BP Position: Sitting, BP Cuff Size: Regular Adult) Pulse 91 Wt 89 kg (196 lb 3.4 oz) SpO2 98% BMI 32.15 kg/m General appearance: Well appearing, alert, in no acute distress, well-hydrated, well nourished. Lungs: Lungs clear to auscultation. No wheezing, rhonchi, rales Heart: RRR without murmur, gallop, or rubs. No ectopy. No edema. Peripheral pulses: Normal Abdomen: Normal abdominal exam, Abdomen soft, non-tender. Bowel sounds normal. No masses, organomegaly Extremities: Normal, Warm, and No cyanosis, no clubbing, Nontender Neuro: no focal deficit Psychiatry: Alert, oriented x3 DATA: Diagnostic tests reviewed for today's visit, including films and specimens, were personally reviewed by me Most recent labs and imaging results. No results found. CT CHEST WO IVCON Result Date: 10/17/2023 IMPRESSION: No acute pulmonary process is identified. Stable subcentimeter pulmonary nodules, measuring less than 6 mm in size. There is no new pulmonary nodule. No kahlil lymphadenopathy is seen within the chest. Leather Cleaner: NAVA Transcribe Date/Time: Oct 17 2023 11:33A Dictated by : JOCELYN STOVALL MD This examination was interpreted and the report reviewed and electronically signed by: JOCELYN STOVALL MD on Oct 17 2023 11:38AM EST IMPRESSION: 1. Asthma (primary diagnosis) Mild airflow obstruction PFTs September 2022 Continue levalbuterol Start Flovent 250 twice a day, can reduce to once a day in the future 2. Lung nodules - ICD9: 793.19, ICD10: R91.8 Cxr 08/2022 An indeterminant nodular opacity overlies the spine on lateral lateral view about the level of T11 vertebra. CT chest 09/2022 less than 6 mm nodules 2 mm rul 2 mm judith [address] chest 09/2023 Stable subcentimeter pulmonary nodules, measuring less than 6 mm in size 3. 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 MARIIA on CPAP - ICD9: 327.23, V46.8, ICD10: G47.33, Z99.89 Using and benefiting from her cpap Not able to use/tolerate facemask because of trigeminal neuralgia Referral to sleep medicine for evaluation for inspire Zan Fernandes MD, TEQUILA Staff, Respiratory [place] [facility] documented in this encounter [facility] 10-13-2023 Note HNO ID: [id number] Author: Toyin Sales RT(R) Service: ? Author Type: Admission Specialist Type: Progress Notes Filed: 10/13/2023 10:28 AM Note Text: Radiology Service Progress Note PATIENT NAME: Caity Rodriguez DATE OF SERVICE: October 13, 2023 TIME: 10:28 AM PATIENT IDENTITY VERIFICATION COMPLETED USING TWO (2) IDENTIFIERS: Name and Date of confirmed by patient verbally. FALL SCREENING: Has the patient had 2 falls in the last year or 1 fall with injury or currently using an Ambulatory Assistive Device (Walker, Cane, Wheelchair, Crutches, etc.)? No PATIENT GENDER DATA: Female. status: : No status: NO. PATIENT RELEVANT IMPLANT DATA REVIEWED: Yes RADIOLOGY DEPARTMENT: CT; Exam(s) Completed: Chest PERIPHERAL IV DATA: Not applicable SIGNED BY: RT Ang(R) October 13, 2023 10:28 AM [facility] 10-13-2023 History of Present illness Narrative Radiology Service Progress Note PATIENT NAME: Caity Rodriguez DATE OF SERVICE: October 13, 2023 TIME: 10:28 AM PATIENT IDENTITY VERIFICATION COMPLETED USING TWO (2) IDENTIFIERS: Name and Date of confirmed by patient verbally. FALL SCREENING: Has the patient had 2 falls in the last year or 1 fall with injury or currently using an Ambulatory Assistive Device (Walker, Cane, Wheelchair, Crutches, etc.)? No PATIENT GENDER DATA: Female. status: : No status: NO. PATIENT RELEVANT IMPLANT DATA REVIEWED: Yes RADIOLOGY DEPARTMENT: CT; Exam(s) Completed: Chest PERIPHERAL IV DATA: Not applicable SIGNED BY: RT Ang(R) October 13, 2023 10:28 AM documented in this encounter [facility] 09-21-2023 Note HNO ID: [id number] Author: Nicky Uriarte RT(Maddi) Service: Radiology Author Type: Technologist Type: Progress Notes Filed: 09/21/2023 9:13 AM Note Text: Radiology Service Progress Note PATIENT NAME: Caity Rodriguez DATE OF SERVICE: September 21, 2023 TIME: 8:49 AM PATIENT IDENTITY VERIFICATION COMPLETED USING TWO (2) IDENTIFIERS: Name and Date of confirmed by patient verbally. FALL SCREENING: Has the patient had 2 falls in the last year or 1 fall with injury or currently using an Ambulatory Assistive Device (Walker, Cane, Wheelchair, Crutches, etc.)? No PATIENT GENDER DATA: Female. status: : No status: NO. PATIENT RELEVANT IMPLANT DATA REVIEWED: Not Applicable RADIOLOGY DEPARTMENT: General X-ray: Exam(s) Completed: Spine X-Ray(s): Lumbar AP / LAT / L5-S1 Pelvis X-Ray: Pelvis with Hip Bilateral Lower Extremity X-Ray(s): Foot, Bilateral and Wt. Bearing 2 v si joints PERIPHERAL IV DATA: Not applicable SIGNED BY: RT Maria A(R) September 21, 2023 8:49 AM [facility] 09-21-2023 Note HNO ID: [id number] Author: Destini Mi APRN.TREKKING GUIDE Service: ? Author Type: Nurse Practitioner Type: Progress Notes Filed: 09/21/2023 12:40 PM Note Text: Chief Complaint Patient presents with: Hip Pain: Tay hip pain AND right heel pain/burning. HPI Caity Rodriguez is a 48 year old female who presents here today for Above Complaints. Today: Hips-both hurting, right is worse than left. Noticed it while gardening this summer. Has to shift weight to left when sitting to relieve some pain. Nothing makes this better-was worse with bending but now is just all the time. Tylenol, ibuprofen, meloxicam haven't helped. Started 3-4 months ago. Both feet throb and burn when elevated, at bedtime. No injury. Left heel-noticed while walking. Is hurting all the time. Present for a couple of months. Worse with walking but once gets going does seem to improve a bit. No injury. No medications are helping anything. Denies back pain or concerns. Past medical history, appointments, medications, allergies reviewed. Previous Medical History PAST MEDICAL HISTORY Diagnosis Date Cholelithiasis with chronic cholecystitis 08/2021 Endometriosis Gall stone Hypercholesteremia MARIIA (obstructive sleep apnea) [facility] fx. [phone] Seasonal allergies Trigeminal neuralgia syndrome Currently on Dr. Matthias Baptiste Neurologist Vitamin D deficiency Previous Surgical History PAST SURGICAL HISTORY Procedure Laterality Date BRAIN SURGERY HX Microvascular decompression CORRECT BUNION,OTHR METHODS 2011,2010 both feet L'SCOPE CHOLECYSTECTOMY 08/14/2021 LUMPECTOMY/RADIOTHERAPY DIAG MAMM/A10 2005 benign PAST SURGICAL HISTORY OF wisdom teeth PAST SURGICAL HISTORY OF exploratory laproscopy REMOVAL GALLBLADDER 08/14/2021 S BALLOON,UTERINE ABLATION [id number] 2009 STABISM SURG,PREV EYE SURG,NOT MUSC 1980 both eyes VAGINAL HYSTERECTOMY UTERUS 250 GM/< 06/2013 Hysterectomy, vaginal Family History FAMILY HISTORY Problem Relation Age of Onset Breast Cancer Mother 60, diagnosed unknown age Cancer Father kidney Hypertension Father Hypertension Paternal Grandmother Diabetes Paternal Grandmother Alzheimer's Disease Paternal Grandfather Patient Allergies ALLERGIES Allergen Reactions Adhesive Tape-Silic* Hives Steri-strips Chlorhexidine Rash Widespread itchy rash developed following surgical site prep for lap brain Dermabond [2-Octyl * Hives Raised, red itchy welts developed at every port site where this was used following laparoscopic cholecystectomy Tegretol [Carbamaze* Hives Current Medications Current Outpatient Medications on File Prior to Visit Medication Sig phenytoin ER (DILANTIN) 100 mg ER capsule Take 100 mg by mouth three times a day. Prescribed by Neurologist MYRBETRIQ 25 mg Tb24 Take 1 tablet by mouth every afternoon. levalbuterol tartrate HFA 45 mcg/actuation inhaler INHALE 1-2 PUFFS INSTRUCTED EVERY 4 HOURS NEEDED FOR WHEEZING/SHORTNESS OF BREATH. esomeprazole (NEXIUM) 40 mg capsule TAKE 1 CAPSULE BY MOUTH EVERY DAY BEFORE BREAKFAST 1/2 HOUR BEFORE MEAL ondansetron orally disintegrating (ZOFRAN ODT) 4 mg disintegrating tablet Take 1 tablet by mouth every 6 hours as needed for nausea/vomiting. meloxicam (MOBIC) 15 mg tablet TAKE 1 TABLET BY MOUTH ONCE DAILY WITH FOOD Cholecalciferol, Vitamin D3, 50 mcg (2,000 unit) cap Take 1 capsule by mouth once daily. ferrous sulfate 325 mg (65 mg iron) tablet Take 1 tablet by mouth twice daily with meals. Ascorbic Acid (VITAMIN C) 1,000 mg tablet Take 1 tablet by mouth once daily. hydrocortisone (PREPARATION H HYDROCORTISONE) 1 % cream Apply to affected area twice daily. pregabalin (LYRICA) 150 mg capsule 150 mg. MULTIVITAMIN ORAL Take by mouth once daily. CPAP Initiate CPAP @ 10 cm of water with humidification, heated hose. Nasal cannula - women's small , filters, tubing, humidifier and lifetime supplies. New head gear. Resmed Airsense 10 Autoset Machine loratadine (CLARITIN) 10 mg tablet Take 10 mg by mouth once daily. ACETAMINOPHEN (TYLENOL ORAL) Take by mouth. baclofen (LIORESAL) 10 mg tablet Take 1 tablet by mouth three times daily as needed (Face pain). lamoTRIgine (LAMICTAL) 100 mg tablet Take 75 mg by mouth three times daily. (Patient not taking: Reported on 09/21/2023) No current facility-administered medications on file prior to visit. Social History Social History Tobacco Use Smoking status: Never Smokeless tobacco: Never Vaping Use Vaping Use: Never used Substance Use Topics Alcohol use: Yes Comment: occaionally wine Drug use: No Review of Symptoms REVIEW OF SYSTEMS See HPI, otherwise negative EXAM: BP 118/78 (BP Site: Left Arm, BP Position: Sitting, BP Cuff Size: Regular Adult) Pulse 81 Resp 16 Wt 90.4 kg (199 lb 3.2 oz) SpO2 98% BMI 32.64 kg/m? General Appearance: Well appearing, alert, in no acute dist (more content not included)... [facility] 09-21-2023 Instructions Destini Mi APRN.BEULAH - 09/21/2023 8:32 AM EST Use the ice on your lower foot like we discussed, 1-2 times daily. Have your xrays done. Schedule with PT. Schedule with podiatry. documented in this encounter [facility] 09-21-2023 History of Present illness Narrative Chief Complaint Patient presents with: Hip Pain: Tay hip pain & right heel pain/burning. HPI Caity Rodriguez is a 48 year old female who presents here today for Above Complaints. Today: Hips-both hurting, right is worse than left. Noticed it while gardening this summer. Has to shift weight to left when sitting to relieve some pain. Nothing makes this better-was worse with bending but now is just all the time. Tylenol, ibuprofen, meloxicam haven't helped. Started 3-4 months ago. Both feet throb and burn when elevated, at bedtime. No injury. Left heel-noticed while walking. Is hurting all the time. Present for a couple of months. Worse with walking but once gets going does seem to improve a bit. No injury. No medications are helping anything. Denies back pain or concerns. Past medical history, appointments, medications, allergies reviewed. Previous Medical History PAST MEDICAL HISTORY Diagnosis Date Cholelithiasis with chronic cholecystitis 08/2021 Endometriosis Gall stone Hypercholesteremia MARIIA (obstructive sleep apnea) [facility] fx. [phone] Seasonal allergies Trigeminal neuralgia syndrome Currently on Dr. Matthias Baptiste Neurologist Vitamin D deficiency Previous Surgical History PAST SURGICAL HISTORY Procedure Laterality Date BRAIN SURGERY HX Microvascular decompression CORRECT BUNION,OTHR METHODS 2011,2010 both feet L'SCOPE CHOLECYSTECTOMY 08/14/2021 LUMPECTOMY/RADIOTHERAPY DIAG MAMM/A10 2005 benign PAST SURGICAL HISTORY OF wisdom teeth PAST SURGICAL HISTORY OF exploratory laproscopy REMOVAL GALLBLADDER 08/14/2021 S BALLOON,UTERINE ABLATION [id number] 2009 STABISM SURG,PREV EYE SURG,NOT MUSC 1980 both eyes VAGINAL HYSTERECTOMY UTERUS 250 GM/< 06/2013 Hysterectomy, vaginal Family History FAMILY HISTORY Problem Relation Age of Onset Breast Cancer Mother 60, diagnosed unknown age Cancer Father kidney Hypertension Father Hypertension Paternal Grandmother Diabetes Paternal Grandmother Alzheimer's Disease Paternal Grandfather Patient Allergies ALLERGIES Allergen Reactions Adhesive Tape-Silic* Hives Steri-strips Chlorhexidine Rash Widespread itchy rash developed following surgical site prep for lap brain Dermabond [2-Octyl * Hives Raised, red itchy welts developed at every port site where this was used following laparoscopic cholecystectomy Tegretol [Carbamaze* Hives Current Medications Current Outpatient Medications on File Prior to Visit Medication Sig phenytoin ER (DILANTIN) 100 mg ER capsule Take 100 mg by mouth three times a day. Prescribed by Neurologist MYRBETRIQ 25 mg Tb24 Take 1 tablet by mouth every afternoon. levalbuterol tartrate HFA 45 mcg/actuation inhaler INHALE 1-2 PUFFS INSTRUCTED EVERY 4 HOURS NEEDED FOR WHEEZING/SHORTNESS OF BREATH. esomeprazole (NEXIUM) 40 mg capsule TAKE 1 CAPSULE BY MOUTH EVERY DAY BEFORE BREAKFAST 1/2 HOUR BEFORE MEAL ondansetron orally disintegrating (ZOFRAN ODT) 4 mg disintegrating tablet Take 1 tablet by mouth every 6 hours as needed for nausea/vomiting. meloxicam (MOBIC) 15 mg tablet TAKE 1 TABLET BY MOUTH ONCE DAILY WITH FOOD Cholecalciferol, Vitamin D3, 50 mcg (2,000 unit) cap Take 1 capsule by mouth once daily. ferrous sulfate 325 mg (65 mg iron) tablet Take 1 tablet by mouth twice daily with meals. Ascorbic Acid (VITAMIN C) 1,000 mg tablet Take 1 tablet by mouth once daily. hydrocortisone (PREPARATION H HYDROCORTISONE) 1 % cream Apply to affected area twice daily. pregabalin (LYRICA) 150 mg capsule 150 mg. MULTIVITAMIN ORAL Take by mouth once daily. CPAP Initiate CPAP @ 10 cm of water with humidification, heated hose. Nasal cannula - women's small , filters, tubing, humidifier and lifetime supplies. New head gear. Resmed Airsense 10 Autoset Machine loratadine (CLARITIN) 10 mg tablet Take 10 mg by mouth once daily. ACETAMINOPHEN (TYLENOL ORAL) Take by mouth. baclofen (LIORESAL) 10 mg tablet Take 1 tablet by mouth three times daily as needed (Face pain). lamoTRIgine (LAMICTAL) 100 mg tablet Take 75 mg by mouth three times daily. (Patient not taking: Reported on 09/21/2023) No current facility-administered medications on file prior to visit. Social History Social History Tobacco Use Smoking status: Never Smokeless tobacco: Never Vaping Use Vaping Use: Never used Substance Use Topics Alcohol use: Yes Comment: occaionally wine Drug use: No Review of Symptoms REVIEW OF SYSTEMS See HPI, otherwise negative EXAM: BP 118/78 (BP Site: Left Arm, BP Position: Sitting, BP Cuff Size: Regular Adult) Pulse 81 Resp 16 Wt 90.4 kg (199 lb 3.2 oz) SpO2 98% BMI 32.64 kg/m General Appearance: Well appearing, alert, in no acute distress, well-hydrated, well nourished.. Back:no pain to palpation of vertebrae, good flexion and extension, good range of motion, no muscle tenderness, motor and sensory appear to be normal, negative SLR test Lungs: Lungs clear to auscultation. No wheezing, rhonchi, rales.. Heart: RRR without murmur, gallop, or rubs. No ectopy. Extremities: No deformities, edema, skin discoloration, clubbing or cyanosis. Good capillary refill. . Musculoskeletal: left heel-no pain with flexion or extension, no pain with rotation, significant pain with pressure and palpation of plantar portion of heel. Hips-pain with internal rotation of hips bilaterally, otherwise no pain or other decreased ROM. Peripheral Pulses: Normal. Neurologic: Gait normal. Reflexes normal and symmetric. Sensation grossly intact.. Previous records, office notes. Health Maintenance List Hepatitis B Vaccine(1 of 3 - 3-dose series) Never done Hepatitis C Screening Never done Mammogram Screening due on 08/10/2022 Depression Assessment Never done Lipid Screening due on 01/20/2023 Colorectal Cancer Screening due on 06/14/2023 Influenza Vaccine(1) due on 07/15/2023 Covid-19 Vaccine(2022- season) due on 07/15/2023 Diabetes Screening due on 10/20/2025 DTaP,Tdap,Td Vaccine(4 - Td or Tdap) due on 06/28/2032 HIV Screening Completed HPV Vaccine Aged Out Pap Testing Discontinued HPV Testing Discontinued Data reviewed Previous records, office notes ASSESSMENT/PLAN: 1. Foot pain, left - ICD9: 729.5, ICD10: M79.672 (primary diagnosis) Ice to plantar surface of foot 1-2 times daily. Continue antiinflammatories. Podiatry consult. PT consult. - XR FOOT GENERAL 3V AP/LAT/OBL BILATERAL - XR SACROILIAC JOINTS 2V AP PELVIS/FERGUESON - XR HIP BILATERAL 5V PEL/AP/LAT EACH HIP - XR LUMBAR GENERAL 3V AP/LAT/L5-S1 - CONSULT TO PHYSICAL THERAPY - CONSULT TO PODIATRY 2. Bilateral hip pain - ICD9: 719.45, ICD10: M25.551, M25.552 Stretching. PT consult. Xrays today. - XR FOOT GENERAL 3V AP/LAT/OBL BILATERAL - XR SACROILIAC JOINTS 2V AP PELVIS/FERGUESON - XR HIP BILATERAL 5V PEL/AP/LAT EACH HIP - XR LUMBAR GENERAL 3V AP/LAT/L5-S1 - CONSULT TO PHYSICAL THERAPY - CONSULT TO PODIATRY 3. Burning sensation of feet - ICD9: 782.0, ICD10: R20.8 - XR FOOT GENERAL 3V AP/LAT/OBL BILATERAL - XR SACROILIAC JOINTS 2V AP PELVIS/FERGUESON - XR HIP BILATERAL 5V PEL/AP/LAT EACH HIP - XR LUMBAR GENERAL 3V AP/LAT/L5-S1 - CONSULT TO PHYSICAL THERAPY - CONSULT TO PODIATRY Destini Mi APRN.TREKKING GUIDE documented in this encounter [facility] 09-15-2023 Note DEPARTMENT OF NEUROL OGY BOTOX PROCEDURE NOTE FOR TRIGEMINAL NEURALGIA Patient: Caity Rodriguez : 1975 Diagnosis: Trigeminal neuralgia of left side of face [G50.0] Procedure: Botox injections into the left trigeminal region. V2 and V3. At this time we are going to inject the nasalis muscle patient have a mild to moderately left facial droop.. We will inject simulans doses in the other areas. Patient reported that his facial pain has increased significantly in the last 3 months. It is not clear whether Botox or Lyrica are working well. Therefore we are going to repeat Botox injections we will increase patient on Lyrica and we are going to start patient on Dilantin to see if we can control better her pain. Prior to procedure risks, benefits, alternatives, and potential side effects were reviewed with patient. Specifically reviewed possible risk of temporary muscle weakness. All questions were answered, patient expressed understanding, verbal consent given for procedure. No numbing spray applied/removed. Botox was injected with the parameters below: With the patient in sitting position, she received Botox injections in the neck and skull muscles. Patient receive the following doses: 1. L Temporalis 50 units 2. Left zygomatic region 10 injections 3 units each 3. Left mandibular region 6 injections 3 units each Total units injected 98 units units. Units discarded 2 units. Comments: Patient received treatment with Botox injections into the left trigeminal region. No complication were observed after the procedure. Patient reported that her pain has increased Lyrica is a still working well [employer]. And is not working any longer. Therefore we are going to discontinue Lamictal and we are going to start patient on Dilantin 100 mg p.o. daily for a week and we will increase by 100 mg a week to 300 mg a day. If patient have relief a we will obtain a Dilantin level and we will maintain patient on these medications. In addition we are going to keep patient taking Lyrica 750 mg a day. Patient will return to the neurology clinic in 3 months for further evaluation thank you [x] Pt tolerated procedure well. Pt advised to avoid exercise or strenuous physical activity for 24 hours. Post treatment expectations reviewed in detail. IVAN ALEXANDRE MD [facility] 09-15-2023 History of Present illness Narrative DEPARTMENT OF NEUROLOGY BOTOX PROCEDURE NOTE FOR TRIGEMINAL NEURALGIA Patient: Caity Rodriguez : 1975 Diagnosis: Trigeminal neuralgia of left side of face [G50.0] Procedure: Botox injections into the left trigeminal region. V2 and V3. At this time we are going to inject the nasalis muscle patient have a mild to moderately left facial droop.. We will inject simulans doses in the other areas. Patient reported that his facial pain has increased significantly in the last 3 months. It is not clear whether Botox or Lyrica are working well. Therefore we are going to repeat Botox injections we will increase patient on Lyrica and we are going to start patient on Dilantin to see if we can control better her pain. Prior to procedure risks, benefits, alternatives, and potential side effects were reviewed with patient. Specifically reviewed possible risk of temporary muscle weakness. All questions were answered, patient expressed understanding, verbal consent given for procedure. No numbing spray applied/removed. Botox was injected with the parameters below: With the patient in sitting position, she received Botox injections in the neck and skull muscles. Patient receive the following doses: 1. L Temporalis 50 units 2. Left zygomatic region 10 injections 3 units each 3. Left mandibular region 6 injections 3 units each Total units injected 98 units units. Units discarded 2 units. Comments: Patient received treatment with Botox injections into the left trigeminal region. No complication were observed after the procedure. Patient reported that her pain has increased Lyrica is a still working well [employer]. And is not working any longer. Therefore we are going to discontinue Lamictal and we are going to start patient on Dilantin 100 mg p.o. daily for a week and we will increase by 100 mg a week to 300 mg a day. If patient have relief a we will obtain a Dilantin level and we will maintain patient on these medications. In addition we are going to keep patient taking Lyrica 750 mg a day. Patient will return to the neurology clinic in 3 months for further evaluation thank you [x] Pt tolerated procedure well. Pt advised to avoid exercise or strenuous physical activity for 24 hours. Post treatment expectations reviewed in detail. IVAN ALEXANDRE MD Administrations This Visit onabotulinumtoxin A (BOTOX) injection 200 Units Admin Date 09/15/23 Action Given Dose 200 Units Route IntraMUSCular Site Other Administered By IVAN ALEXANDRE MD Ordering Provider: IVAN ALEXANDRE MD [facility] [place][NOTE 2]: [id number] Lot#: [id number] Supervisor Parking Lot: [employer] Patient Supplied?: No documented in this encounter [facility] 08-24-2023 Note Patient Outreach (IN [facility]) CAITY RODRIGUEZ ([id number]) 1975 F Date Time Provider Department 08/24/23 FERNANDO PEDERSEN During your visit today, we recorded the following information about you: Allergies As of Date: 08/24/2023 Noted Allergy Reaction ADHESIVE TAPE-SILICONES 08/17/2021 4 - Hives Comments: Steri-strips CHLORHEXIDINE 08/17/2021 2 - Rash Comments: Widespread itchy rash developed following surgical site prep for lap brain DERMABOND (2-OCTYL CYANOACRYLATE) 08/17/2021 4 - Hives Comments: Raised, red itchy welts developed at every port site where this was used following laparoscopic cholecystectomy TEGRETOL (CARBAMAZEPINE) 07/05/2014 4 - Hives Date Reviewed: 02/16/2023 Reviewed by: Blanca Patel Ma - Fully Assessed Visit Diagnosis:Encounter for screening mammogram for breast cancer [Z12.31] Order(s):GIORGI BERRY [[id number]] Order #: [id number] FUTURE Prescriptions as of 08/29/2023 - ACETAMINOPHEN (TYLENOL ORAL) Take by mouth. - Ascorbic Acid (VITAMIN C) 1,000 mg tablet Take 1 tablet by mouth once daily. - baclofen (LIORESAL) 10 mg tablet Take 1 tablet by mouth three times daily as needed (Face pain). - Cholecalciferol, Vitamin D3, 50 mcg (2,000 unit) cap Take 1 capsule by mouth once daily. - CPAP Initiate CPAP @ 10 cm of water with humidification, heated hose. Nasal cannula - women's small , filters, tubing, humidifier and lifetime supplies. New head gear. Resmed Airsense 10 Autoset Machine - esomeprazole (NEXIUM) 40 mg capsule TAKE 1 CAPSULE BY MOUTH EVERY DAY BEFORE BREAKFAST 1/2 HOUR BEFORE MEAL - ferrous sulfate 325 mg (65 mg iron) tablet Take 1 tablet by mouth twice daily with meals. - hydrocortisone (PREPARATION H HYDROCORTISONE) 1 % cream Apply to affected area twice daily. - lamoTRIgine (LAMICTAL) 100 mg tablet Take 75 mg by mouth three times daily. - levalbuterol tartrate HFA 45 mcg/actuation inhaler INHALE 1-2 PUFFS INSTRUCTED EVERY 4 HOURS NEEDED FOR WHEEZING/SHORTNESS OF BREATH. - loratadine (CLARITIN) 10 mg tablet Take 10 mg by mouth once daily. - meloxicam (MOBIC) 15 mg tablet TAKE 1 TABLET BY MOUTH ONCE DAILY WITH FOOD - MULTIVITAMIN ORAL Take by mouth once daily. - ondansetron orally disintegrating (ZOFRAN ODT) 4 mg disintegrating tablet Take 1 tablet by mouth every 6 hours as needed for nausea/vomiting. - pregabalin (LYRICA) 150 mg capsule 150 mg. Meds Comments as of 11/28/2013: Immunotherapy Dr. 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 Authorizing Provider: PATY ALBERT [place] pharmacy report ([facility] [place]) reviewed and found to be consistent with prescriptions. Patient has been adherent to prescribed therapy. [facility] 07-29-2023 Miscellaneous Notes Requested Prescriptions Signed Prescriptions Disp Refills pregabalin (Lyrica) 300 MG capsule 60 capsule 2 Sig: Take 1 capsule (300 mg) by mouth 2 times daily. Authorizing Provider: PATY ALBERT [place] pharmacy report ([facility]) reviewed and found to be consistent with prescriptions. Patient has been adherent to prescribed therapy. See pending Rx if appropriate. Next appt: 09/07/2023 Last filled: 03/17/2023, # 60, 2 refills documented in this encounter [facility] 07-29-2023 Telephone encounter Note See pending Rx if appropriate. Next appt: 09/07/2023 Last filled: 03/17/2023, # 60, 2 refills [facility] 06-09-2023 Note DEPARTMENT OF NEUROL OGY BOTOX PROCEDURE NOTE FOR TRIGEMINAL NEURALGIA Date: 06/09/2023 Patient: Caity Rodriguez : 1975 Diagnosis: Trigeminal neuralgia of left side of face [G50.0] Procedure: Botox injections into the left trigeminal region. V2 and V3. At this time we are going to inject the nasalis muscle patient have a mild to moderately left facial droop.. We will inject simulans doses in the other areas. Prior to procedure risks, benefits, alternatives, and potential side effects were reviewed with patient. Specifically reviewed possible risk of temporary muscle weakness. All questions were answered, patient expressed understanding, verbal consent given for procedure. No numbing spray applied/removed. Botox was injected with the parameters below: With the patient in sitting position, she received Botox injections in the neck and skull muscles. Patient receive the following doses: 1. L Temporalis 50 units 2. Left zygomatic region 10 injections 3 units each 3. Left mandibular region 6 injections 3 units each Total units injected 98 units units. Units discarded 2 units. Comments: Patient received treatment with Botox injections into the left trigeminal region. No complication were observed after the procedure. [x] Pt tolerated procedure well. Pt advised to avoid exercise or strenuous physical activity for 24 hours. Post treatment expectations reviewed in detail. VIAN ALEXANDRE MD [facility] 06-09-2023 History of Present illness Narrative DEPARTMENT OF NEUROLOGY BOTOX PROCEDURE NOTE FOR TRIGEMINAL NEURALGIA Date: 06/09/2023 Patient: Caity Rodriguez : 1975 Diagnosis: Trigeminal neuralgia of left side of face [G50.0] Procedure: Botox injections into the left trigeminal region. V2 and V3. At this time we are going to inject the nasalis muscle patient have a mild to moderately left facial droop.. We will inject simulans doses in the other areas. Prior to procedure risks, benefits, alternatives, and potential side effects were reviewed with patient. Specifically reviewed possible risk of temporary muscle weakness. All questions were answered, patient expressed understanding, verbal consent given for procedure. No numbing spray applied/removed. Botox was injected with the parameters below: With the patient in sitting position, she received Botox injections in the neck and skull muscles. Patient receive the following doses: 1. L Temporalis 50 units 2. Left zygomatic region 10 injections 3 units each 3. Left mandibular region 6 injections 3 units each Total units injected 98 units units. Units discarded 2 units. Comments: Patient received treatment with Botox injections into the left trigeminal region. No complication were observed after the procedure. [x] Pt tolerated procedure well. Pt advised to avoid exercise or strenuous physical activity for 24 hours. Post treatment expectations reviewed in detail. IVAN ALEXANDRE MD Administrations This Visit onabotulinumtoxin A (BOTOX) injection 200 Units Admin Date 06/09/23 Action Given Dose 200 Units Route IntraMUSCular Site Other Administered By IVAN ALEXANDRE MD Ordering Provider: IVAN ALEXANDRE MD [facility] [place]NOTE 2]: 1297-3620-60 Lot#: [id number] Supervisor Parking Lot: [employer] Patient Supplied?: No documented in this encounter [facility] 05-30-2023 Telephone encounter Note Requested Prescriptions Signed Prescriptions Disp Refills lamoTRIgine (LaMICtal) 100 MG tablet 60 tablet 5 Sig: Take 1 tablet (100 mg) by mouth 2 times daily. Authorizing Provider: PATY ALBERT [facility] 05-30-2023 Miscellaneous Notes Requested Prescriptions Signed Prescriptions Disp Refills lamoTRIgine (LaMICtal) 100 MG tablet 60 tablet 5 Sig: Take 1 tablet (100 mg) by mouth 2 times daily. Authorizing Provider: PATY ALBERT See pending Rx if appropriate. Next appt: 06/09/2023 Last filled: 12/23/2022, # 60, 5 refills documented in this encounter [facility] 05-30-2023 Telephone encounter Note See pending Rx if appropriate. Next appt: 06/09/2023 Last filled: 12/23/2022, # 60, 5 refills [facility] 03-17-2023 Telephone encounter Note Requested Prescriptions Signed Prescriptions Disp Refills pregabalin (Lyrica) 300 MG capsule 60 capsule 2 Sig: Take 1 capsule (300 mg) by mouth 2 times daily. Authorizing Provider: PATY ALBERT [place] pharmacy report ([facility] [place]) reviewed and found to be consistent with prescriptions. Patient has been adherent to prescribed therapy. [facility] 03-17-2023 Miscellaneous Notes Requested Prescriptions Signed Prescriptions Disp Refills pregabalin (Lyrica) 300 MG capsule 60 capsule 2 Sig: Take 1 capsule (300 mg) by mouth 2 times daily. Authorizing Provider: PATY ALBERT [place] pharmacy report ([facility] [place]) reviewed and found to be consistent with prescriptions. Patient has been adherent to prescribed therapy. Rx pending if appropriate. Follow up: 06/09/2023 documented in this encounter [facility] 03-17-2023 Telephone encounter Note Rx pending if appropriate. Follow up: 06/09/2023 [facility] 03-10-2023 Note DEPARTMENT OF NEUROL OGY BOTOX PROCEDURE NOTE FOR TRIGEMINAL NEURALGIA Date: 03/11/23 Patient: Caity Rodriguez : 1975 Diagnosis: Trigeminal neuralgia of left side of face [G50.0] Procedure: Botox injections into the left trigeminal region. V2 and V3. At this time we are going to inject the nasalis muscle patient have a mild to moderately left facial droop.. We will inject simulans doses in the other areas. Prior to procedure risks, benefits, alternatives, and potential side effects were reviewed with patient. Specifically reviewed possible risk of temporary muscle weakness. All questions were answered, patient expressed understanding, verbal consent given for procedure. No numbing spray applied/removed. Botox was injected with the parameters below: With the patient in sitting position, she received Botox injections in the neck and skull muscles. Patient receive the following doses: 1. L Temporalis 50 units 2. Left zygomatic region 10 injections 3 units each 3. Left mandibular region 6 injections 3 units each Total units injected 98 units units. Units discarded 2 units. Comments: Patient received the first treatment with Botox injections into the left trigeminal region. No complication were observed after the procedure. Risks of Botox injection were explained to patient is presently mild droopiness of the left face. Patient understood and agree. Patient reported that her left trigeminal neuralgia pain is getting worse especially in the last 3 months most likely secondary to cold weather. patient will continue with the Glenn Stover of the same doses. Thank you [x] Pt tolerated procedure well. Pt advised to avoid exercise or strenuous physical activity for 24 hours. Post treatment expectations reviewed in detail. IVAN ALEXANDRE MD [facility] 03-10-2023 History of Present illness Narrative Administrations This Visit onabotulinumtoxin A (BOTOX) injection 200 Units Admin Date 03/10/23 Action Given Dose 200 Units Route IntraMUSCular Site Other Administered By IVAN ALEXANDRE MD Ordering Provider: IVAN ALEXANDRE MD [facility] [place][NOTE 2]: 2736-2118-57 Lot#: [id number] Supervisor Parking Lot: [employer] Patient Supplied?: No Administrations This Visit onabotulinumtoxin A (BOTOX) injection 200 Units Admin Date 03/10/23 Action Given Dose 200 Units Route IntraMUSCular Site Other Administered By IVAN ALEXANDRE MD Ordering Provider: IVAN ALEXANDRE MD [facility] [place][NOTE 2]: 3836-9305-92 Lot#: [id number] Supervisor Parking Lot: [employer] Patient Supplied?: SAMPLE DEPARTMENT OF NEUROLOGY BOTOX PROCEDURE NOTE FOR TRIGEMINAL NEURALGIA Date: 12/01/2022 Patient: Caity Rodriguez : 1975 Diagnosis: Trigeminal neuralgia of left side of face [G50.0] Procedure: Botox injections into the left trigeminal region. V2 and V3. At this time we are going to inject the nasalis muscle patient have a mild to moderately left facial droop.. We will inject simulans doses in the other areas. Prior to procedure risks, benefits, alternatives, and potential side effects were reviewed with patient. Specifically reviewed possible risk of temporary muscle weakness. All questions were answered, patient expressed understanding, verbal consent given for procedure. No numbing spray applied/removed. Botox was injected with the parameters below: With the patient in sitting position, she received Botox injections in the neck and skull muscles. Patient receive the following doses: 1. L Temporalis 50 units 2. Left zygomatic region 10 injections 3 units each 3. Left mandibular region 6 injections 3 units each Total units injected 98 units units. Units discarded 2 units. Comments: Patient received the first treatment with Botox injections into the left trigeminal region. No complication were observed after the procedure. Risks of Botox injection were explained to patient is presently mild droopiness of the left face. Patient understood and agree. Patient reported that her left trigeminal neuralgia pain is getting worse especially in the last 3 months most likely secondary to cold weather. patient will continue with the Glenn Stover of the same doses. Thank you [x] Pt tolerated procedure well. Pt advised to avoid exercise or strenuous physical activity for 24 hours. Post treatment expectations reviewed in detail. IVAN ALEXANDRE MD documented in this encounter [facility] 03-10-2023 History of Present illness Narrative Administrations This Visit onabotulinumtoxin A (BOTOX) injection 200 Units Admin Date 03/10/23 Action Given Dose 200 Units Route IntraMUSCular Site Other Administered By IVAN ALEXANDRE MD Ordering Provider: IVAN ALEXANDRE MD [facility] [place][NOTE 2]: [id number] Lot#: [id number] Supervisor Parking Lot: [employer] Patient Supplied?: No Administrations This Visit onabotulinumtoxin A (BOTOX) injection 200 Units Admin Date 03/10/23 Action Given Dose 200 Units Route IntraMUSCular Site Other Administered By IVAN ALEXANDRE MD Ordering Provider: IVAN ALEXANDRE MD [place]: [id number] Lot#: [id number] Supervisor Parking Lot: [employer] Patient Supplied?: SAMPLE DEPARTMENT OF NEUROLOGY BOTOX PROCEDURE NOTE FOR TRIGEMINAL NEURALGIA Date: 03/11/23 Patient: Caity Rodriguez : 1975 Diagnosis: Trigeminal neuralgia of left side of face [G50.0] Procedure: Botox injections into the left trigeminal region. V2 and V3. At this time we are going to inject the nasalis muscle patient have a mild to moderately left facial droop.. We will inject simulans doses in the other areas. Prior to procedure risks, benefits, alternatives, and potential side effects were reviewed with patient. Specifically reviewed possible risk of temporary muscle weakness. All questions were answered, patient expressed understanding, verbal consent given for procedure. No numbing spray applied/removed. Botox was injected with the parameters below: With the patient in sitting position, she received Botox injections in the neck and skull muscles. Patient receive the following doses: 1. L Temporalis 50 units 2. Left zygomatic region 10 injections 3 units each 3. Left mandibular region 6 injections 3 units each Total units injected 98 units units. Units discarded 2 units. Comments: Patient received the first treatment with Botox injections into the left trigeminal region. No complication were observed after the procedure. Risks of Botox injection were explained to patient is presently mild droopiness of the left face. Patient understood and agree. Patient reported that her left trigeminal neuralgia pain is getting worse especially in the last 3 months most likely secondary to cold weather. patient will continue with the Glenn Stover of the same doses. Thank you [x] Pt tolerated procedure well. Pt advised to avoid exercise or strenuous physical activity for 24 hours. Post treatment expectations reviewed in detail. IVAN ALEXANDRE MD documented in this encounter [facility] 02-17-2023 Miscellaneous Notes Received fax from [facility] that Levalbuterol tartrate has been approved. This approval is valid through 02/16/23 - 02/17/24. Approval forms sent to [facility]. Completed forms received from [facility] and faxed back to [facility]. Transmission successful, paperwork in fax drawer. Fax received from [facility] - form for drug exemption. Placed on cordt's desk for completion. Spoke with patient's insurance company [employer] - they state xopenex is a plan exclusion so PA cannot be done. States there is the option for prescribing provider to fill out a plan exception form. States they will fax this form to our office Called the number listed below for patient's insurance - it is no longer in service. Called and spoke with pharmacist at [facility] in [place] - he states that there is no option given for prior auth for xopenex with patient's plan, states it is just not covered so they had already discarded the rx. Spoke with patient and she states we would need to call [phone] to speak with her insurance company. Attempted to call - many calls ahead on hold, will try again later Images from the original note were not included. Norbert Whitaker APRN.TREKKING GUIDE You 5 minutes ago (11:07 AM) CS No, she cannot tolerate it. She receives benefit from it and would use it more often if she could but experiences significant palpitations which prevent her from using it. Appears that the only inhaler that was sent in today was xopenex hfa. Is patient able to use regular albuterol hfa? (insurance will want to know this if trying to get an exception approved). Patient calling in stating her insurance denied both inhalers that Cordt was going to prescribe her. She said her insurance company is requesting a formulary exception form to be sent to them so they can try to get the Rx approved. Her insurance company phone number is [phone], please advise. documented in this encounter [facility] 02-16-2023 Note HNO ID: [id number] Author: Norbert Whitaker APRN.BEULAH Service: ? Author Type: Nurse Practitioner Type: Progress Notes Filed: 02/16/2023 11:45 AM Note Text: [facility] DEPARTMENT OF PULMONARY MEDICINE ESTABLISHED PATIENT OFFICE VISIT 02/16/2023 Patient Name: Caity Rodriguez PRIMARY CARE PHYSICIAN: Fernando Pedersen DO CHIEF COMPLAINT: Patient presents with: Asthma: Follow up ASSESSMENT: (J30.9) Allergic rhinitis, unspecified seasonality, unspecified trigger (primary encounter diagnosis) (J45.30) Mild persistent asthma without complication (R91.8) Lung nodules - patient presents today for follow up of lung nodules and mild asthma. She reports intermittent symptoms of chest tightness, wheeze related to her asthma which are relieved by albuterol. However, she avoids using albuterol as it causes her palpitations. She feels she could use it a few times a week if not having the side effects. Spirometry in October last year showed mild obstruction, normal DLCO, normal Edgar. CT chest 09/29 with few small (3 mm, 2 mm, 2 mm) bilateral pulmonary nodules. Follow up [address] scheduled for 10/13. PLAN: - stop albuterol, start xopenex PRN given palpitations - would likely benefit from ICS-LABA, will need to check with insurance what option is most affordable as it appears none are covered - continue OTC antihistamines as needed - will need f/u in October after CT chest 10/13 in [place], patient prefers to f/u here in [place] Subjective HISTORY OF PRESENT ILLNESS: Caity Rodriguez is a 48 year old female who presents today for follow-up. Past medical history is significant for allergic rhinitis (used to be on allergy shots), MARIIA on cpap, trigeminal neuralgia, bells pals, joint pain with normal ctd work up. Never smoker. Most recent pulmonary office visit was on 10/13/[address] Fernandes. Recommendations from that office visit were as follows: 1. Lung nodules - ICD9: 793.19, ICD10: R91.8 (primary diagnosis) Cxr 08/2022 An indeterminant nodular opacity overlies the spine on lateral lateral view about the level of T11 vertebra. CT chest 09/2022 less than 6 mm nodules 2 mm rul 2 mm judith [address] chest in 1 year - CT CHEST WO IVCON 2. SOB (shortness of breath) - ICD9: 786.05, ICD10: R06.02 R/o asthma Pft - SPIROMETRY - BASELINE AND POST DILATOR - LUNG DIFFUSION CAPACITY (DLCO) - NITRIC OXIDE, EXHALED 3. 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 Chest tightness - ICD9: 786.59, ICD10: R07.89 Proceed with pft 5. MARIIA on CPAP - ICD9: 327.23, V46.8, ICD10: G47.33, Z99.89 Using and benefiting from her cpap Patient will ask the [employer] for data INTERVAL HPI Since the last visit on 10/13/2022, Ms. Rodriguez reports: Feels she needs albuterol a few times a week Will have chest tightness, wheeze Albuterol does relieve symptoms Does feel she is overweight Laughing also is a trigger Also has really bad allergies Does have some trouble sleeping not necessarily related to asthma Still wearing CPAP although recent HSAT did not show a need for it Takes claritin, flonase, and steroid nose spray ?? Still has some issues with allergies regardless Is allergic to hay - so has issues feeding her goats Has some mild night sweats a few times a month - mostly mild but sometimes drenching, feels it may be nataliia-menopausal GERD well controlled Lived in [place] home in the past so potentially had some abnormal things. Had bad mold in her bathroom in the past in [place] that she had a significant reaction to. Lived there for 5 years. Found the mold 2 years in Has 1 cat, 1 dog, goats, chickens Patient denies weight loss, fever, chills, night sweats, hemoptysis MMRC Dyspnea Scale: 0. Not troubled by breathlessness except on strenuous exercise Short of breath when hurrying or walking up a slight hill Walks slower than contemporaries on the level because of breathlessness, or has to stop for breath when walking at own pace Stops for breath after about 100 m or after a few minutes on the level Too breathless to leave the house, or breathless when dressing or undressing ECO02/16/2023 1- Restricted in physically strenuous activity. Carries out light duty. REVIEW OF SYSTEMS Review of Systems Constitutional: Negative for chills, fatigue, fever and unexpected weight change. HENT: Negative for congestion, postnasal drip, rhinorrhea, sinus pressure, sinus pain and sore throat. Respiratory: Negative for cough, chest tightness, shortness of breath and wheezing. Cardiovascular: Negative for chest pain and leg swelling. Gastrointestinal: Negative for abdominal pain, blood in stool, constipation, diarrhea, nausea and vomiting. Genitourinary: Negative for dif (more content not included)... [facility] 02-16-2023 Instructions Norbert Whitaker APRN.CNP - 02/16/2023 9:56 AM EDT Check with insurance for ICS-LABA inhaler for maintenance asthma therapy documented in this encounter [facility] 02-16-2023 History of Present illness Narrative Images from the original note were not included. [facility]ICINE ESTABLISHED PATIENT OFFICE VISIT 02/16/2023 Patient Name: Caity Rodriguez PRIMARY CARE PHYSICIAN: Fernando Pedersen DO CHIEF COMPLAINT: Patient presents with: Asthma: Follow up ASSESSMENT: (J30.9) Allergic rhinitis, unspecified seasonality, unspecified trigger (primary encounter diagnosis) (J45.30) Mild persistent asthma without complication (R91.8) Lung nodules - patient presents today for follow up of lung nodules and mild asthma. She reports intermittent symptoms of chest tightness, wheeze related to her asthma which are relieved by albuterol. However, she avoids using albuterol as it causes her palpitations. She feels she could use it a few times a week if not having the side effects. Spirometry in October last year showed mild obstruction, normal DLCO, normal Edgar. CT chest 09/29 with few small (3 mm, 2 mm, 2 mm) bilateral pulmonary nodules. Follow up [address] scheduled for 10/13. PLAN: - stop albuterol, start xopenex PRN given palpitations - would likely benefit from ICS-LABA, will need to check with insurance what option is most affordable as it appears none are covered - continue OTC antihistamines as needed - will need f/u in October after CT chest 10/13 in [place], patient prefers to f/u here in [place] Subjective HISTORY OF PRESENT ILLNESS: Caity Rodriguez is a 48 year old female who presents today for follow-up. Past medical history is significant for allergic rhinitis (used to be on allergy shots), MARIIA on cpap, trigeminal neuralgia, bells pals, joint pain with normal ctd work up. Never smoker. Most recent pulmonary office visit was on 10/13/[address] Fernandes. Recommendations from that office visit were as follows: 1. Lung nodules - ICD9: 793.19, ICD10: R91.8 (primary diagnosis) Cxr 08/2022 An indeterminant nodular opacity overlies the spine on lateral lateral view about the level of T11 vertebra. CT chest 09/2022 less than 6 mm nodules 2 mm rul 2 mm judith [address] chest in 1 year - CT CHEST WO IVCON 2. SOB (shortness of breath) - ICD9: 786.05, ICD10: R06.02 R/o asthma Pft - SPIROMETRY - BASELINE AND POST DILATOR - LUNG DIFFUSION CAPACITY (DLCO) - NITRIC OXIDE, EXHALED 3. 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 Chest tightness - ICD9: 786.59, ICD10: R07.89 Proceed with pft 5. MARIIA on CPAP - ICD9: 327.23, V46.8, ICD10: G47.33, Z99.89 Using and benefiting from her cpap Patient will ask the [employer] for data INTERVAL HPI Since the last visit on 10/13/2022, Ms. Rodriguez reports: Feels she needs albuterol a few times a week Will have chest tightness, wheeze Albuterol does relieve symptoms Does feel she is overweight Laughing also is a trigger Also has really bad allergies Does have some trouble sleeping not necessarily related to asthma Still wearing CPAP although recent HSAT did not show a need for it Takes claritin, flonase, and steroid nose spray ?? Still has some issues with allergies regardless Is allergic to hay - so has issues feeding her goats Has some mild night sweats a few times a month - mostly mild but sometimes drenching, feels it may be nataliia-menopausal GERD well controlled Lived in [place] home in the past so potentially had some abnormal things. Had bad mold in her bathroom in the past in [place] that she had a significant reaction to. Lived there for 5 years. Found the mold 2 years in Has 1 cat, 1 dog, goats, chickens Patient denies weight loss, fever, chills, night sweats, hemoptysis MMRC Dyspnea Scale: 0. Not troubled by breathlessness except on strenuous exercise Short of breath when hurrying or walking up a slight hill Walks slower than contemporaries on the level because of breathlessness, or has to stop for breath when walking at own pace Stops for breath after about 100 m or after a few minutes on the level Too breathless to leave the house, or breathless when dressing or undressing ECO02/16/2023 1- Restricted in physically strenuous activity. Carries out light duty. REVIEW OF SYSTEMS Review of Systems Constitutional: Negative for chills, fatigue, fever and unexpected weight change. HENT: Negative for congestion, postnasal drip, rhinorrhea, sinus pressure, sinus pain and sore throat. Respiratory: Negative for cough, chest tightness, shortness of breath and wheezing. Cardiovascular: Negative for chest pain and leg swelling. Gastrointestinal: Negative for abdominal pain, blood in stool, constipation, diarrhea, nausea and vomiting. Genitourinary: Negative for difficulty urinating, hematuria and vaginal bleeding. Musculoskeletal: Negative for arthralgias, back pain and myalgias. Skin: Negative for rash. Neurological: Negative for dizziness, weakness, light-headedness and numbness. All other systems reviewed and are negative. Compliant with airway regimen of: albuterol PRN Objective PAST MEDICAL HISTORY Diagnosis Date Cholelithiasis with chronic cholecystitis 08/2021 Endometriosis Gall stone Hypercholesteremia MARIIA (obstructive sleep apnea) [facility] fx. [phone] Seasonal allergies Trigeminal neuralgia syndrome Currently on Dr. Matthias Baptiste Neurologist Vitamin D deficiency PAST SURGICAL HISTORY Procedure Laterality Date BRAIN SURGERY HX Microvascular decompression CORRECT BUNION,OTHR METHODS 2011,2010 both feet L'SCOPE CHOLECYSTECTOMY 08/14/2021 LUMPECTOMY/RADIOTHERAPY DIAG MAMM/A10 2005 benign PAST SURGICAL HISTORY OF wisdom teeth PAST SURGICAL HISTORY OF exploratory laproscopy REMOVAL GALLBLADDER 08/14/2021 S BALLOON,UTERINE ABLATION [id number] 2008 STABISM SURG,PREV EYE SURG,NOT MUSC 1980 both eyes VAGINAL HYSTERECTOMY UTERUS 250 GM/< 06/2013 Hysterectomy, vaginal FAMILY HISTORY Problem Relation Age of Onset Breast Cancer Mother 60, diagnosed unknown age Cancer Father kidney Hypertension Father Hypertension Paternal Grandmother Diabetes Paternal Grandmother Alzheimer's Disease Paternal Grandfather Social History Tobacco Use Smoking status: Never Smokeless tobacco: Never Vaping Use Vaping Use: Never used Substance Use Topics Alcohol use: Yes Comment: occaionally wine Drug use: No ALLERGIES Allergen Reactions Adhesive Tape-Silic* Hives Steri-strips Chlorhexidine Rash Widespread itchy rash developed following surgical site prep for lap brain Dermabond [2-Octyl * Hives Raised, red itchy welts developed at every port site where this was used following laparoscopic cholecystectomy Tegretol [Carbamaze* Hives CURRENT OUTPATIENT MEDICATIONS esomeprazole (NEXIUM) 40 mg capsule TAKE 1 CAPSULE BY MOUTH EVERY DAY BEFORE BREAKFAST 1/2 HOUR BEFORE MEAL ondansetron orally disintegrating (ZOFRAN ODT) 4 mg disintegrating tablet Take 1 tablet by mouth every 6 hours as needed for nausea/vomiting. meloxicam (MOBIC) 15 mg tablet TAKE 1 TABLET BY MOUTH ONCE DAILY WITH FOOD Cholecalciferol, Vitamin D3, 50 mcg (2,000 unit) cap Take 1 capsule by mouth once daily. ferrous sulfate 325 mg (65 mg iron) tablet Take 1 tablet by mouth twice daily with meals. Ascorbic Acid (VITAMIN C) 1,000 mg tablet Take 1 tablet by mouth once daily. lamoTRIgine (LAMICTAL) 100 mg tablet Take 75 mg by mouth three times daily. hydrocortisone (PREPARATION H HYDROCORTISONE) 1 % cream Apply to affected area twice daily. pregabalin (LYRICA) 150 mg capsule 150 mg. MULTIVITAMIN ORAL Take by mouth once daily. CPAP Initiate CPAP @ 10 cm of water with humidification, heated hose. Nasal cannula - women's small , filters, tubing, humidifier and lifetime supplies. New head gear. Resmed Airsense 10 Autoset Machine loratadine (CLARITIN) 10 mg tablet Take 10 mg by mouth once daily. ACETAMINOPHEN (TYLENOL ORAL) Take by mouth. baclofen (LIORESAL) 10 mg tablet Take 1 tablet by mouth three times daily as needed (Face pain). levalbuterol tartrate HFA (XOPENEX HFA) 45 mcg/actuation inhaler Inhale 1-2 Puffs as instructed every 4 hours as needed for wheezing/shortness of breath. PHYSICAL EXAMINATION: BP 120/84 Pulse 75 Ht 166.4 cm (5' 5.5 ) Wt 85.9 kg (189 lb 6.4 oz) SpO2 100% BMI 31.04 kg/m Physical Exam Vitals and nursing note reviewed. Constitutional: General: She is not in acute distress. Appearance: Normal appearance. She is normal weight. HENT: Head: Normocephalic and atraumatic. Nose: No congestion or rhinorrhea. Mouth/Throat: Pharynx: No oropharyngeal exudate or posterior oropharyngeal erythema. Cardiovascular: Rate and Rhythm: Normal rate and regular rhythm. Heart sounds: No murmur heard. No gallop. Pulmonary: Effort: Pulmonary effort is normal. No respiratory distress. Breath sounds: Normal breath sounds. No wheezing or rales. Musculoskeletal: Right lower leg: No edema. Left lower leg: No edema. Lymphadenopathy: Cervical: No cervical adenopathy. Neurological: General: No focal deficit present. Mental Status: She is alert and oriented to person, place, and time. Mental status is at baseline. Psychiatric: Mood and Affect: Mood normal. Behavior: Behavior normal. DATA: Diagnostic tests reviewed for today's visit, including films and specimens, were personally reviewed by me CXR Reviewed report and images 09/01/2022 RESULT: Lines, tubes, and devices: Multiple surgical clips in the left breast. Lungs and pleura: No lung consolidation. An indeterminant nodular opacity overlies the spine on lateral lateral view about the level of T11 vertebra. Summation shadow or possibly lung lesion are considered. Further evaluation with repeat/follow-up PA and lateral chest radiograph is recommended. If the lesion persists, then cross-sectional imaging with CT may be considered. No pleural effusion. No pneumothorax. CT chest Reviewed report and images 09/29/2022 IMPRESSION: 1. Few small (less than 6 mm) bilateral pulmonary nodules. 2. No thoracic lymphadenopathy. PFT Reviewed 10/25/2022 IMPRESSION: Spirometry indicates mild obstruction. There is a significant bronchodilator response. The diffusing capacity is normal. ORAL EXHALED NITRIC OXIDE SERVICE DATE: 10/25/2022 SERVICE TIME: 11:43 AM Oral Exhaled Nitric Oxide measurement: 18.0 (ppb) Labs Reviewed Latest Reference Range & Units 10/20/22 10:39 Sodium 136 - 144 mmol/L 139 Potassium 3.7 - 5.1 mmol/L 4.3 Chloride 97 - 105 mmol/L 103 CO2 22 - 30 mmol/L 24 BUN 7 - 21 mg/dL 8 Creatinine 0.58 - 0.96 mg/dL 0.84 Glucose 74 - 99 mg/dL 87 Protein, Total 6.3 - 8.0 g/dL 7.7 Calcium 8.5 - 10.2 mg/dL 9.9 Albumin 3.9 - 4.9 g/dL 4.5 Bilirubin, Total 0.2 - 1.3 mg/dL 0.3 Alkaline Phosphatase 34 - 123 U/L 54 ALT 7 - 38 U/L 16 AST 13 - 35 U/L 22 Anion Gap 9 - 18 mmol/L 12 eGFR >=60 mL/min/1.73m 87 Vitamin B12 232 - 1,245 pg/mL 595 Ferritin 14.7 - 205.1 ng/mL 80.3 Iron 41 - 186 ug/dL 39 (L) TIBC 232 - 386 ug/dL 298 Transferrin Saturation 15.0 - 57.0 % 13.1 (L) Vitamin D 25 Hydroxy 31.0 - 80.0 ng/mL 28.6 (L) Free T4 0.9 - 1.7 ng/dL 1.0 TSH 0.270 - 4.200 mIU/L 2.920 T3 79 - 165 ng/dL 121 WBC 3.70 - 11.00 k/uL 5.34 RBC 3.90 - 5.20 m/uL 4.30 Hemoglobin 11.5 - 15.5 g/dL 13.5 Hematocrit 36.0 - 46.0 % 41.8 Platelet Count 150 - 400 k/uL 321 MCV 80.0 - 100.0 fL 97.2 MCH 26.0 - 34.0 pg 31.4 MCHC 30.5 - 36.0 g/dL 32.3 MPV 9.0 - 12.7 fL 11.1 RDW-CV 11.5 - 15.0 % 13.4 (L): Data is abnormally low Immunization History Administered Date(s) Administered COVID-19 original vaccine, full dose, monovalent (MODERNA) 08/01/2021 08/29/2021 influenza (IIV4) vaccine, age 6 mo - 64 yr, quadrivalent (AFLURIA, FLULAVAL, FLUZONE) 12/15/2016 tetanus diphtheria pertussis (Tdap) vaccine, age 7+ yr (ADACEL, BOOSTRIX) 06/28/2012 02/16/2016 06/28/2022 Patient instructed to contact me via my chart for radiology and lab test results. I have collected the history from the patient and chart. I have personally examined the patient, and have also independently reviewed the imaging and any available laboratory data. I addressed the questions of the patient, and patient has expressed understanding and acceptance of my answers. No follow-ups on file. Patient instructed to call our office or PCP or go to the emergency department for new or worsening problems or symptoms including, but not limited to, increasing shortness of breath, cough, phlegm, fever, and chills. Electronically signed by: Norbert Whitaker APRN.CNP Pulmonary Medicine Respiratory [place], [facility] documented in this encounter [facility] 11-01-2022 Miscellaneous Notes Images from the original note were not included. Caity Rodriguez Wstr Famp My Chart Rx Pool (supporting Fernando Pedersen, ) 2 days ago EG Good afternoon, a while back you prescribed me some anti nausea medication because I get swimy headed and nauseous because of the trigeminal neuralgia that I suffer with. It was ondansetron odt 4 mg. These are the dissolvable ones which is very helpful. Would you please consider prescribing these for me again as the nausea is back and at times hard to deal with? Thanks for you help and for your time Hope Albina Please advise. Nicolette Goodson MA documented in this encounter [facility] 11-01-2022 Miscellaneous Notes MC message turned into TE. Nicolette Goodson MA documented in this encounter [facility] 10-25-2022 Procedure note Associated Ord er(s): NITRIC OXIDE, EXHALED RESPIRATORY THERAPY ORAL EXHALED NITRIC OXIDE SERVICE DATE: 10/25/2022 SERVICE TIME: 11:43 AM Oral Exhaled Nitric Oxide measurement: 18.0 (ppb) Normal: Adult 5-20 ppb, pediatric (<12 years) 5-15 ppb High Normal / Increased: Adult 20-35 ppb, pediatric (<12 years) 15-25 ppb Moderately raised exhaled Nitric Oxide may indicate underlying inflammation, but note that: Cold and influenza can raise exhaled Nitric Oxide and some patients have higher baseline exhaled Nitric Oxide levels than others. High: Adult >35 ppb, pediatric (<12 years) >25 ppb Indicative of ongoing eosinophilic inflammation. Symptomatic patient likely to respond to steroids. Possible causes (if already on steroids): Poor compliance, recent allergen exposure, steroid dose inadequate, and steroid resistance. Note that not all patients with high exhaled nitric oxide levels display symptoms. Oral Exhaled Nitric Oxide measurement (Previous Encounters) Test Date Oral Exhaled Nitric Oxide (ppb) 10/25/2022 18.0 NAME: BRIAN Orozco PATIENT NAME: Caity Rodriguez DATE: October 25, 2022 TIME: 11:43 AM documented in this encounter [facility] 10-25-2022 History of Present illness Narrative PULM FUNCTION SMARTBLOCK: Provider: Zan Fernandes MD Assisting Tech: BRIAN Orozco Spirometry w/BD: 1 DLCO: 1 Exhaled Nitric Oxide: 1 documented in this encounter [facility] 10-21-2022 Miscellaneous Notes The following approved medication requests have been transmitted electronically. Requested Prescriptions Signed Prescriptions Disp Refills Cholecalciferol, Vitamin D3, 50 mcg (2,000 unit) cap 90 capsule 3 Sig: Take 1 capsule by mouth once daily. Authorizing Provider: DESTINI MI ferrous sulfate 325 mg (65 mg iron) tablet 180 tablet 3 Sig: Take 1 tablet by mouth twice daily with meals. Authorizing Provider: DESTINI MI Ascorbic Acid (VITAMIN C) 1,000 mg tablet 90 tablet 3 Sig: Take 1 tablet by mouth once daily. Authorizing Provider: DESTINI MI APRN.CNP Pt informed, verbalized understanding. Pt reports she takes a multivitamin which contains vitamin D 25mcg & Super B with vitamin C 60mg. Not taking iron supplement. Shelli Sanchez Ma Please let Caity know that both her iron and vitamin D levels are low, both of which can cause fatigue. Does she take a vitamin D3, iron, or vitamin C supplement? If not we need to get her started on these. Destini Mi APRN.CNP documented in this encounter [facility] 10-20-2022 Miscellaneous Notes Waiting for visit note to be signed from today Shelli Sanchez Ma Please fax patient's allergy consult per request. Destini Mi APRN.CNP documented in this encounter [facility] 10-20-2022 Instructions Destini Mi APRN.CNP - 10/20/2022 10:17 AM EST We will fax your consult to the rotary swaging machine operator's office. Expect a call from them. Schedule with neuromuscular medicine. Have your labs drawn. documented in this encounter [facility] 10-20-2022 History of Present illness Narrative Chief Complaint Patient presents with: Joint Pain: Muscle aches, fatigue x 6months, recently saw Rheumatology. HPI Caity Rodriguez is a 47 year old female who presents here today for Above Complaints.. 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 Face is visibly swollen. Does routinely get botox injections for these. Hands burn and ache at nighttime. Stiff in mornings. Shoulder blades frequently hurt. Fine rash to right underside of her chin. Feels overall fatigued. Daughter had a pseudotumor that caused pressure in her eye and now is on immunotherapy and feels great from this. Past medical history, appointments, medications, allergies reviewed. Previous Medical History PAST MEDICAL HISTORY Diagnosis Date Cholelithiasis with chronic cholecystitis 08/2021 Endometriosis Gall stone Hypercholesteremia MARIIA (obstructive sleep apnea) [facility] fx. [phone] Seasonal allergies Trigeminal neuralgia syndrome Currently on Dr. Matthias Baptiste Neurologist Vitamin D deficiency Previous Surgical History PAST SURGICAL HISTORY Procedure Laterality Date BRAIN SURGERY HX Microvascular decompression CORRECT BUNION,OTHR METHODS 2011,2010 both feet L'SCOPE CHOLECYSTECTOMY 08/14/2021 LUMPECTOMY/RADIOTHERAPY DIAG MAMM/A10 2005 benign PAST SURGICAL HISTORY OF wisdom teeth PAST SURGICAL HISTORY OF exploratory laproscopy REMOVAL GALLBLADDER 08/14/2021 S BALLOON,UTERINE ABLATION [id number] 2009 STABISM SURG,PREV EYE SURG,NOT MUSC 1980 both eyes VAGINAL HYSTERECTOMY UTERUS 250 GM/< 06/2013 Hysterectomy, vaginal Family History FAMILY HISTORY Problem Relation Age of Onset Breast Cancer Mother 60, diagnosed unknown age Cancer Father kidney Hypertension Father Hypertension Paternal Grandmother Diabetes Paternal Grandmother Alzheimer's Disease Paternal Grandfather Patient Allergies ALLERGIES Allergen Reactions Adhesive Tape-Silic* Hives Steri-strips Chlorhexidine Rash Widespread itchy rash developed following surgical site prep for lap brain Dermabond [2-Octyl * Hives Raised, red itchy welts developed at every port site where this was used following laparoscopic cholecystectomy Tegretol [Carbamaze* Hives Current Medications Current Outpatient Medications on File Prior to Visit Medication Sig meloxicam (MOBIC) 15 mg tablet Take 15 mg by mouth. lamoTRIgine (LAMICTAL) 100 mg tablet Take 75 mg by mouth three times daily. hydrocortisone (PREPARATION H HYDROCORTISONE) 1 % cream Apply to affected area twice daily. pregabalin (LYRICA) 150 mg capsule 150 mg. MULTIVITAMIN ORAL Take by mouth once daily. esomeprazole (NEXIUM) 40 mg capsule TAKE 1 CAPSULE BY MOUTH DAILY BEFORE BREAKFAST. 1/2 HR BEFORE MEAL. ondansetron orally disintegrating (ZOFRAN ODT) 4 mg disintegrating tablet Take 1 tablet by mouth every 6 hours as needed for Nausea/Vomiting. CPAP Initiate CPAP @ 10 cm of water with humidification, heated hose. Nasal cannula - women's small , filters, tubing, humidifier and lifetime supplies. New head gear. Resmed Airsense 10 Autoset Machine loratadine (CLARITIN) 10 mg tablet Take 10 mg by mouth once daily. ACETAMINOPHEN (TYLENOL ORAL) Take by mouth. baclofen (LIORESAL) 10 mg tablet Take 1 tablet by mouth three times daily as needed (Face pain). No current facility-administered medications on file prior to visit. Social History Social History Tobacco Use Smoking status: Never Smokeless tobacco: Never Vaping Use Vaping Use: Never used Substance Use Topics Alcohol use: Yes Comment: occaionally wine Drug use: No Review of Symptoms REVIEW OF SYSTEMS See HPI, otherwise negative EXAM: BP 118/86 (BP Site: Left Arm, BP Position: Sitting, BP Cuff Size: Regular Adult) Pulse 94 Temp 36.7 C (98 F) (Temporal) Resp 16 Wt 83.1 kg (183 lb 3.2 oz) SpO2 98% BMI 30.49 kg/m General Appearance: Well appearing, alert, in no acute distress, well-hydrated, well nourished.. Skin: fine flesh colored papular rash just under right chin. Head: Facial tenderness, mild visible swelling to left face. Lungs: Lungs clear to auscultation. No wheezing, rhonchi, rales.. Heart: RRR without murmur, gallop, or rubs. No ectopy. Health Maintenance List HEPATITIS B(1 of 3 - 3-dose series) Never done HEPATITIS C SCREENING Never done COVID-19 VACCINE(3 - Booster for Moderna series) due on 10/24/2021 DEPRESSION ASSESSMENT Never done INFLUENZA(1) due on 07/15/2022 MAMMOGRAM due on 08/10/2022 LIPID SCREEN due on 01/20/2023 COLORECTAL CANCER SCREENING due on 06/14/2023 DIABETES SCREEN due on 06/28/2025 DTAP,TDAP,TD(4 - Td or Tdap) due on 06/28/2032 HIV SCREENING Completed PAP TESTING Discontinued HPV TESTING Discontinued Data reviewed Previous records, office notes ASSESSMENT/PLAN: 1. Arthralgia, unspecified joint - ICD9: 719.40, ICD10: M25.50 (primary diagnosis) - TRIAMCINOLONE ACETONIDE 40 MG/ML SUSPENSION FOR INJECTION - CBC - COMP METABOLIC PANEL - TSH BLD - T3 BLD - T4 FREE/FREE THYROX - IRON + TIBC - FERRITIN BLD - VITAMIN D 25 HYDROXY - VITAMIN B12 BLOOD - CONSULT OSTEOPATHIC NEUROMUSCULOSKELETAL MEDICINE 2. Trigeminal neuralgia - ICD9: 350.1, ICD10: G50.0 - TRIAMCINOLONE ACETONIDE 40 MG/ML SUSPENSION FOR INJECTION - CBC - COMP METABOLIC PANEL - TSH BLD - T3 BLD - T4 FREE/FREE THYROX - IRON + TIBC - FERRITIN BLD - VITAMIN D 25 HYDROXY - VITAMIN B12 BLOOD - CONSULT OSTEOPATHIC NEUROMUSCULOSKELETAL MEDICINE 3. 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 Fatigue, unspecified type - ICD9: 780.79, ICD10: R53.83 - TRIAMCINOLONE ACETONIDE 40 MG/ML SUSPENSION FOR INJECTION - CBC - COMP METABOLIC PANEL - TSH BLD - T3 BLD - T4 FREE/FREE THYROX - IRON + TIBC - FERRITIN BLD - VITAMIN D 25 HYDROXY - VITAMIN B12 BLOOD - CONSULT OSTEOPATHIC NEUROMUSCULOSKELETAL MEDICINE 5. Seasonal allergies - ICD9: 477.9, ICD10: J30.2 - CONSULT TO ALLERGY/IMMUNOLOGY 6. Epigastric burning sensation - ICD9: 789.06, ICD10: R10.13 Refill given - ESOMEPRAZOLE MAGNESIUM 40 MG CAPSULE,DELAYED RELEASE 7. Bilateral lower abdominal pain - ICD9: 789.03, 789.04, ICD10: R10.31, R10.32 Refill given - ESOMEPRAZOLE MAGNESIUM 40 MG CAPSULE,DELAYED RELEASE Destini Mi APRN.CNP Medical Decision Making: Problems: Moderate: 1+ chronic illnesses with change, 2+ stable chronic illnesses and New problem with uncertain prognosis Data: Unique source(s) for external note(s) reviewed: 1 Unique test result(s) reviewed: 3+ Unique test(s) ordered: 1 Assessment requiring an independent historian(s) Risk: Moderate: Moderate risk from testing/treatment and Drug management Medical Decision Making Level: 4 - Moderate documented in this encounter [facility] 10-20-2022 Miscellaneous Notes Patient has been identified by name and date of : Yes Pharmacy phones for refill(s): Requested Prescriptions Pending Prescriptions Disp Refills meloxicam (MOBIC) 15 mg tablet [Pharmacy Med Name: MELOXICAM 15 MG TABLET] 30 tablet 3 Sig: TAKE 1 TABLET BY MOUTH ONCE DAILY WITH FOOD Date of last office visit in primary care: 06/28/22 next apt 10/20/22 Last 2 Encounter Wt Readings: Date: Wt: 10/13/2022 83 kg (183 lb) 09/01/2022 85.7 kg (189 lb) Previous labs/tests for medication: Not applicable Thank you. Alice Lincoln LPN documented in this encounter [facility] 10-13-2022 History of Present illness Narrative Images from the original note were not included. [facility] OFFICE VISIT CONSULT 10/13/2022 Patient Name: Caity Rodriguez PRIMARY CARE PHYSICIAN: Fernando Pedersen DO REASON FOR CONSULT: lung nodules, allergic rhinitis, trigeminal neuralgia, chest tightness of exertion, MARIIA on cpap REFERRING PHYSICIAN: Jono Wallace APRN.C* My final recommendations will be communicated to the requesting health care provider by way of the shared medical record for internal providers or by letter via US mail for external providers. CHIEF COMPLAINT: lung nodules, allergic rhinitis, trigeminal neuralgia, chest tightness of exertion, MARIIA on cpap HISTORY OF PRESENT ILLNESS: Caity Rodriguez is a 47 year old female, Ht 165.1 cm (5' 5 ) BMI 30.45 kg/m2 with a PMH significant for allergic rhinitis, (used to be on allergy shots), mariia on cpap, trigeminal neuralgia, bells palsy, joint pain with normal ctd work up, here for abnormal cxr and ct chest. The chest imaging were part of rheumatologic work up for joint pain. Patient has no cough, no sputum production, no wheezing. She does not feel well overall Feels chest tightness when taking the stairs. Never diagnosed with asthma, never used an inhaler On disability for bells pulsy/trigeminal neuralgia- s/p surgery The symptoms are mild, intermittent, occur on exertion and relieved by rest Cxr 08/2022 An indeterminant nodular opacity overlies the spine on lateral lateral view about the level of T11 vertebra. CT chest 09/2022 less than 6 mm nodules 2 mm rul 2 mm judith 3 mm rml MMRC Dyspnea Scale: 0. Not troubled by breathlessness except on strenuous exercise Short of breath when hurrying or walking up a slight hill Walks slower than contemporaries on the level because of breathlessness, or has to stop for breath when walking at own pace Stops for breath after about 100 m or after a few minutes on the level Too breathless to leave the house, or breathless when dressing or undressing Environmental/ Occupational Exposure History: Pets: No birds Asbestos: No significant exposure Silica: No significant exposure [place]: No significant exposure Mold: No significant exposure Hot tub: No significant exposure Fumes: No significant exposure Metal dust: No significant exposure Beryllium: No significant exposure Dust: No significant exposure Medications: No relevant exposure for interstitial lung diseases PAST MEDICAL HISTORY Diagnosis Date Cholelithiasis with chronic cholecystitis 08/2021 Endometriosis Gall stone Hypercholesteremia MARIIA (obstructive sleep apnea) DME [facility] fx. [phone] Seasonal allergies Trigeminal neuralgia syndrome Currently on Dr. Matthias Baptiste Neurologist Vitamin D deficiency PAST SURGICAL HISTORY Procedure Laterality Date BRAIN SURGERY HX Microvascular decompression CORRECT BUNION,OTHR METHODS 2011,2010 both feet L'SCOPE CHOLECYSTECTOMY 08/14/2021 LUMPECTOMY/RADIOTHERAPY DIAG MAMM/A10 2005 benign PAST SURGICAL HISTORY OF wisdom teeth PAST SURGICAL HISTORY OF exploratory laproscopy REMOVAL GALLBLADDER 08/14/2021 S BALLOON,UTERINE ABLATION [id number] 2008 STABISM SURG,PREV EYE SURG,NOT MUSC 1980 both eyes VAGINAL HYSTERECTOMY UTERUS 250 GM/< 06/2013 Hysterectomy, vaginal FAMILY HISTORY Problem Relation Age of Onset Breast Cancer Mother 60, diagnosed unknown age Cancer Father kidney Hypertension Father Hypertension Paternal Grandmother Diabetes Paternal Grandmother Alzheimer's Disease Paternal Grandfather no pertinent family history Social History Tobacco Use Smoking status: Never Smokeless tobacco: Never Vaping Use Vaping Use: Never used Substance Use Topics Alcohol use: Yes Comment: occaionally wine Drug use: No ALLERGIES ALLERGIES Allergen Reactions Adhesive Tape-Silic* Hives Steri-strips Chlorhexidine Rash Widespread itchy rash developed following surgical site prep for lap brain Dermabond [2-Octyl * Hives Raised, red itchy welts developed at every port site where this was used following laparoscopic cholecystectomy Tegretol [Carbamaze* Hives CURRENT OUTPATIENT MEDICATIONS meloxicam (MOBIC) 15 mg tablet Take 15 mg by mouth. lamoTRIgine (LAMICTAL) 100 mg tablet Take 75 mg by mouth three times daily. hydrocortisone (PREPARATION H HYDROCORTISONE) 1 % cream Apply to affected area twice daily. pregabalin (LYRICA) 150 mg capsule 150 mg. MULTIVITAMIN ORAL Take by mouth once daily. esomeprazole (NEXIUM) 40 mg capsule TAKE 1 CAPSULE BY MOUTH DAILY BEFORE BREAKFAST. 1/2 HR BEFORE MEAL. ondansetron orally disintegrating (ZOFRAN ODT) 4 mg disintegrating tablet Take 1 tablet by mouth every 6 hours as needed for Nausea/Vomiting. CPAP Initiate CPAP @ 10 cm of water with humidification, heated hose. Nasal cannula - women's small , filters, tubing, humidifier and lifetime supplies. New head gear. Resmed Airsense 10 Autoset Machine loratadine (CLARITIN) 10 mg tablet Take 10 mg by mouth once daily. ACETAMINOPHEN (TYLENOL ORAL) Take by mouth. baclofen (LIORESAL) 10 mg tablet Take 1 tablet by mouth three times daily as needed (Face pain). REVIEW OF SYSTEMS Review of Systems Constitutional: Negative for chills, fever and weight loss. Respiratory: Negative for cough, hemoptysis, sputum production, shortness of breath and wheezing. Cardiovascular: Negative for chest pain and leg swelling. The remainder of review of systems was negative. PHYSICAL EXAM BP 132/84 Pulse 87 Ht 5' 5 (1.65m) Wt 183 lb (83.0kg) SpO2 98% BMI 30.45 kg/(m^2). General appearance: Well appearing, alert, in no acute distress, well-hydrated, well nourished. Eyes: PERRLA Neck: no palpable masses Lungs: Lungs clear to auscultation. No wheezing, rhonchi, rales Heart: RRR without murmur, gallop, or rubs. No ectopy , normal peripheral pulses, no peripheral edema Abdomen: Abdomen soft, non-tender. Bowel sounds normal. No masses, organomegaly Extremities: Normal, Warm, No cyanosis, no clubbing, No edema, and Nontender Neuro: no focal weakness Psychiatry: Alert, Oriented X 3 DATA Diagnostic tests reviewed for today's visit, including films and specimens, personally reviewed by me: Most recent labs and imaging results. No results found for this or any previous visit (from the past 8760 hour(s)). No results found for this or any previous visit (from the past 55802 hour(s)). XR CHEST 2V FRONTAL/LAT Result Date: 09/01/2022 IMPRESSION: See body of the report Leather Cleaner: NAVA Transcribe Date/Time: Sep 01 2022 10:01A Dictated by : BILLY ANGLIN MD This examination was interpreted and the report reviewed and electronically signed by: ALYX ULLOA MD on Sep 01 2022 12:04PM EST CT CHEST WO IVCON Result Date: 09/29/2022 IMPRESSION: 1. Few small (less than 6 mm) bilateral pulmonary nodules. 2. No thoracic lymphadenopathy. Incidental Finding: Follow-up Acuity: Incidental Finding: Solid: <6 mm (solitary or multiple) Routing Code: N/A Recommendation: No imaging follow-up is recommended Time Frame: N/A Comments: If there are risk factors for lung malignancy, a follow-up chest CT exam could be obtained in 12 months Leather Cleaner: NAVA Transcribe Date/Time: Sep 29 2022 8:59A Dictated by : MAX VALDIVIA MD This examination was interpreted and the report reviewed and electronically signed by: MAX VALDIVIA MD on Sep 29 2022 9:15AM EST ASSESSMENT/PLAN ASSESSMENT/PLAN: 1. Lung nodules - ICD9: 793.19, ICD10: R91.8 (primary diagnosis) Cxr 08/2022 An indeterminant nodular opacity overlies the spine on lateral lateral view about the level of T11 vertebra. CT chest 09/2022 less than 6 mm nodules 2 mm rul 2 mm judith [address] chest in 1 year - CT CHEST WO IVCON 2. SOB (shortness of breath) - ICD9: 786.05, ICD10: R06.02 R/o asthma Pft - SPIROMETRY - BASELINE AND POST DILATOR - LUNG DIFFUSION CAPACITY (DLCO) - NITRIC OXIDE, EXHALED 3. 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 Chest tightness - ICD9: 786.59, ICD10: R07.89 Proceed with pft 5. MARIIA on CPAP - ICD9: 327.23, V46.8, ICD10: G47.33, Z99.89 Using and benefiting from her cpap Patient will ask the [employer] for data MD Zan Irby MD Staff, Respiratory [place] [facility] CC: Fernando Pedersen, Jono Boss, C* documented in this encounter [facility] 09-29-2022 History of Present illness Narrative Radiology Service Progress Note PATIENT NAME: Caity Rodriguez DATE OF SERVICE: September 29, 2022 TIME: 2:03 PM PATIENT IDENTITY VERIFICATION COMPLETED USING TWO (2) IDENTIFIERS: Name and Date of confirmed by patient verbally. FALL SCREENING: Has the patient had 2 falls in the last year or 1 fall with injury or currently using an Ambulatory Assistive Device (Walker, Cane, Wheelchair, Crutches, etc.)? No PATIENT GENDER DATA: Female. status: : No status: NO. PATIENT RELEVANT IMPLANT DATA REVIEWED: Yes RADIOLOGY DEPARTMENT: CT; Exam(s) Completed: Chest PERIPHERAL IV DATA: Not applicable SIGNED BY: RT Ang(R) September 29, 2022 2:03 PM documented in this encounter [facility] 09-17-2022 History of Present illness Narrative Images from the original note were not included. Rheumatology FOLLOW UP VISIT Date of Service: 09/17/2022 Patient: Caity Rodriguez Medical Record: [id number] Primary Care Physician: Fernando Pedersen DO Last Rheumatology visit: 09/01/2022 (with Jono Wallace) History of Present Illness Caity Rodriguez is a 47 year old White female who presents on 09/17/2022 for an virtual visit for evaluation of Positive FABY (Follow up). Caity is both RF - 9 (06/28/2022) and CCP - 13.5 (08/12/2022) negative. Her most recent FABY was negative (09/01/2022). C/o Generalized pain, and joint pain. Used to take Meloxicam. No response from it so she has stopped it. Repeat FABY with IFA reflex came back negative. Abnormal finding in chest XR. She has already made appointment for chest CT. Willing to follow up with rn cardiac. Initial Visit 09/01/22 Patient is present here today with her daughter who also serves as co historian. C/o Joint pain in hands, hips, knees, ankle, feet. Experiencing more than a year. Last 6 months gotten worse. Joint pain Wax and wane Morning stiffness - hands are the worst. Last 15-20 minutes. Difficulty make fist in the morning. Inactivity makes her joint pain in hand worse. No swelling, no redness over the joints. Except sometimes her DIP joints get painful and red with her trigeminal/face pain. She picks her skin around the finger nails. C/o Fatigue. States that she drinks coffee/tea a lot. Fatigue and joint pain sometimes makes her nauseated. Takes Zofran as needed. She also gets motion sickness. No fever, No change in weight. Hx of trigeminal neuralgia. Had Microvascular decompression - due to trigeminal neuralgia. Still experiences face drooping and swelling. Follows up with neurologist. Gets Botox every 3 months for trigeminal neuralgia. C/o muscle pain in upper arm, and lower legs Meloxicam does not help. Rates her pain 3-4/10 in her face and knees. Covid vaccine X2 HX of MARIIA Family hx Daughter ?spondyloarthropathy on Imuran Grand mother has Hypothyroidism (+) in bold; all rest are negative or denies history of: Chest pain, shortness of breath, history of pleural effusion or pericarditis, oral/nasal ulcers, photosensitivity, rash, history of DVT/PE/&or miscarriages, renal disease, seizures, dry eyes, dry mouth, cervical lymphadenopathy or parotid gland swelling, Raynaud's phenomenon, alopecia, psoriasis, history of iritis/uveitis or scleritis, nail pitting, dactylitis, history of sacroilitis or inflammatory bowel disease, arm weakness in raising arms above head, leg weakness in standing up from a seated position, skin tightening, dysphagia, changes in vision, scalp tenderness, jaw claudication, stiffness in shoulders/hip girdle, auricular or nasal chondritis Pain Evaluation Pain Evaluation 08/04/2021 08/17/2021 09/04/2021 05/10/2022 09/01/2022 Pain Score 7 6 3 2 4 Location Abdomen-Right Upper Quadrant Abdomen Abdomen-Right Upper Quadrant Rectum - Location Comment - - - - - Description Burning;Aching;Stabbing Itching;Burning Other: See comment Sore - Duration (#) 2 3 3 6 - Duration (Timeframe) Months Days Weeks Months - Frequency Continuous - Intermittent Continuous - Intervention Other: See comment Education Reposition - - Patient-Entered Data PROMIS Assessments PROMIS Global Health - (T-Scores - the mean of general population = 50. Five points is a clinically meaningful difference.) 07/19/2021 06/27/2022 08/30/2022 Physical T-Score 42.3 42.3 39.8 Mental T-Score 62.5 59 43.5 PROMIS CAT Pain Interference 08/30/2022 PROMIS Pain Interference T-Score (range: 10 - 90) 62 (moderate) PROMIS Pain Interference Percentile 12 % PROMIS CAT Fatigue 08/30/2022 PROMIS Fatigue T-Score 64 (moderate) PROMIS Fatigue Percentile 8 % PROMIS PHYSICAL FUNCTION T-SCORE 08/30/2022 PROMIS Physical Function T-Score 40 (mild dysfunction) Physical Function Percentile 16 % RAPID 3 [facility] Activities of Daily Living 08/30/2022 8:09 PM Dress self? Without ANY difficulty Get in and out of bed? With SOME difficulty Walk outdoors? Without ANY difficulty Wash and dry body? Without ANY difficulty Get in and out of car? Without ANY difficulty RAPID 3 Disease Activity Weighed Score Levels: 0 - 1: Near Remission 1.3 - 2.0: Low Severity 2.3 - 4.0: Moderate Severity 4.3 - 10.0: High Severity RAPID-3 Weighed Score 08/30/2022 RAPID 3 Weighed Score 4.67 (High Severity (HS)) Review of Systems Review of Systems CONSTITUTION: HEENT: Positive for: Trouble swallowing and Dry mouth Negative for: Nosebleeds and Mouth sores RESPIRATORY: Negative for: Cough, Shortness of breath and Pain with breathing GASTROINTESTINAL: Negative for: Melena, Diarrhea, Heartburn and Abdominal pain MUSCULOSKELETAL: Positive for: Arthralgias, Joint swelling and Morning Joint Stiffness Negative for: Myalgias and Muscle weakness NEUROLOGICAL: Positive for: Headaches and Numbness Negative for: Memory loss SKIN: Positive for: Skin changes and Nail changes Negative for: Rash and Hair loss EYES: Positive for: Eye pain and Eye dryness CARDIOVASCULAR: Positive for: Chest pain Negative for: Leg swelling GENITOURINARY: Negative for: Dysuria and Hematuria HEMATOLOGIC/LYMPHATIC: Negative for: Swollen glandsAll other reviewed and negative other than HPI. Past Medical History PAST MEDICAL HISTORY Diagnosis Date Cholelithiasis with chronic cholecystitis 08/2021 Endometriosis Gall stone Hypercholesteremia MARIIA (obstructive sleep apnea) [facility] fx. [phone] Seasonal allergies Trigeminal neuralgia syndrome Currently on Dr. Matthias Baptiste Neurologist Vitamin D deficiency Past Surgical History PAST SURGICAL HISTORY Procedure Laterality Date BRAIN SURGERY HX Microvascular decompression CORRECT BUNION,OTHR METHODS 2011,2010 both feet L'SCOPE CHOLECYSTECTOMY 08/14/2021 LUMPECTOMY/RADIOTHERAPY DIAG MAMM/A10 2005 benign PAST SURGICAL HISTORY OF wisdom teeth PAST SURGICAL HISTORY OF exploratory laproscopy REMOVAL GALLBLADDER 08/14/2021 S BALLOON,UTERINE ABLATION [id number] 2008 STABISM SURG,PREV EYE SURG,NOT MUSC 1980 both eyes VAGINAL HYSTERECTOMY UTERUS 250 GM/< 06/2013 Hysterectomy, vaginal Family History FAMILY HISTORY Problem Relation Age of Onset Breast Cancer Mother 60, diagnosed unknown age Cancer Father kidney Hypertension Father Hypertension Paternal Grandmother Diabetes Paternal Grandmother Alzheimer's Disease Paternal Grandfather Social History Social History Tobacco Use Smoking status: Never Smokeless tobacco: Never Vaping Use Vaping Use: Never used Substance Use Topics Alcohol use: Yes Comment: occaionally wine Drug use: No Current Medications Current Outpatient Medications Medication Sig meloxicam (MOBIC) 15 mg tablet Take 15 mg by mouth. lamoTRIgine (LAMICTAL) 100 mg tablet Take 75 mg by mouth three times daily. hydrocortisone (PREPARATION H HYDROCORTISONE) 1 % cream Apply to affected area twice daily. pregabalin (LYRICA) 150 mg capsule 150 mg. MULTIVITAMIN ORAL Take by mouth once daily. esomeprazole (NEXIUM) 40 mg capsule TAKE 1 CAPSULE BY MOUTH DAILY BEFORE BREAKFAST. 1/2 HR BEFORE MEAL. ondansetron orally disintegrating (ZOFRAN ODT) 4 mg disintegrating tablet Take 1 tablet by mouth every 6 hours as needed for Nausea/Vomiting. CPAP Initiate CPAP @ 10 cm of water with humidification, heated hose. Nasal cannula - women's small , filters, tubing, humidifier and lifetime supplies. New head gear. Resmed Airsense 10 Autoset Machine loratadine (CLARITIN) 10 mg tablet Take 10 mg by mouth once daily. ACETAMINOPHEN (TYLENOL ORAL) Take by mouth. baclofen (LIORESAL) 10 mg tablet Take 1 tablet by mouth three times daily as needed (Face pain). Labs Component Latest Ref Rng & Units 09/01/2022 Color Yellow Dark Yellow (A) Clarity Clear Slightly Cloudy (A) Glucose, Urine Negative Negative Bilirubin, Urine Negative Negative Ketones, Urine Negative Negative Specific [place], Ur 1.005 - 1.030 1.017 Hemoglobin/Blood,Ur Negative Negative pH, Urine 5.0 - 8.0 7.0 Protein, Urine Negative Negative Urobilinogen Negative Negative Nitrites Negative Negative Leukest Negative Negative WBC, Urine 0-5 /HPF 0-5 /HPF RBC, Urine 0-3 /HPF 0-3 /HPF Epithelial Cells /HPF Few Platelet Neut Negative Negative DRVVT Screen 32.0 - 45.7 seconds 35.0 DRVVT Confirm Ratio <1.32 0.99 DRVVT 1:1 Mix 32.0 - 45.7 seconds 35.4 Hex Phase Screen 34.0 - 51.8 seconds 44.5 Hex Phase Confirm 34.2 - 47.9 seconds 43.7 Hex Phase Delta <7.1 delta seconds 0.8 APTT Screen 24.0 - 35.1 seconds 29.5 Thrombin Time <18.6 seconds <16.8 Protein, Urine Random 0 - 20 mg/dL 8 Creatinine, Ur Random (UCRR) 20.0 - 300.0 mg/dL 74.0 Protein/Creat Ratio <0.15 mg/mg 0.11 PT Sec 9.7 - 13.0 sec 10.0 PT INR 0.9 - 1.3 1.0 C3 86 - 166 mg/dL 123 C4 13 - 46 mg/dL 23 DNA Antibody w/Confirmation <30 IU/mL <12 CK 42 - 196 U/L 86 Aldolase 1.5 - 8.1 U/L 6.0 FABY Negative Negative APTT 23.0 - 32.4 sec 27.7 Cardiolipin Ab, IgA <12.0 APL <9.0 Cardiolipin Ab, IgG <15.0 GPL <9.0 Cardiolipin Ab, IgM <12.5 MPL <9.0 Beta 2 Glycoprotein, IgG <20 SGU <9 Beta 2 Glycoprotein, IgM <20 SMU <9 Interpretation(Lupus Anticoagulant) Performing Pathologist: Dr. Otf Hsu MD . . . ANCA Latest Ref Rng & Units 02/03/2017 MYELOPEROXIDASE ANTIBODY (MPO) <1.0 AI Test not performed on samples negative by immunofluorescence. PROTEINASE 3 ANTIBODY <1.0 AI Test not performed on samples negative by immunofluorescence. P-ANCA FLUORESCENCE Negative Negative C-ANCA FLUORESCENCE Negative Negative PANCA <1.0 AI Test not performed on samples negative by immunofluorescence. Imaging XR Foot 09/01/22 No evidence of inflammatory/erosive arthropathy in the hands or feet. Additional findings as described. XR Hand/Wrist 09/01/22 No evidence of inflammatory/erosive arthropathy in the hands or feet. Additional findings as described. XR Chest 09/01/22 Lines, tubes, and devices: Multiple surgical clips in the left breast. Lungs and pleura: No lung consolidation. An indeterminant nodular opacity overlies the spine on lateral lateral view about the level of T11 vertebra. Summation shadow or possibly lung lesion are considered. Further evaluation with repeat/follow-up PA and lateral chest radiograph is recommended. If the lesion persists, then cross-sectional imaging with CT may be considered. No pleural effusion. No pneumothorax. Cardiomediastinal silhouette: Normal cardiomediastinal silhouette. Bones and soft tissues: Multilevel degenerative changes in the thoracic spine. Health Maintenance Current Immunizations Reviewed on 09/01/2022 Name Date COVID-19 vaccine, monovalent (MODERNA) 08/29/2021 , 08/01/2021 INFLUENZA 12/15/2016 Tdap (Age 7+) 06/28/2022 , 02/16/2016 , 06/28/2012 Physical Exam GENERAL APPEARANCE: Well groomed. Alert and oriented x 3. In no distress. No Physical exam performed - virtual visit. There is currently no information documented on the homunculus. Go to the Rheumatology activity and complete the homunculus joint exam. Joint Exam 09/17/2022 No joint exam has been documented for this visit Joint Exam Data (across time) Joint Exam 09/01/2022 Total Tender 0 Total Swollen 0 Impression ASSESSMENT/PLAN: 1. Generalized pain - ICD9: 780.96, ICD10: R52 (primary diagnosis) - CONSULT TO PHYSICAL THERAPY - CONSULT TO ECOACHING WELLNESS 2. Abnormal finding on chest xray - ICD9: 793.2, ICD10: R93.89 - CONSULT TO PULMONARY MEDICINE - Chest CT Jono Wallace APRN.TREKKING GUIDE Return in about 6 months (around 03/17/2023), or if symptoms worsen or fail to improve. I spent a total of 30 minutes on the date of the service which included preparing to see the patient, [id number] patient care, completing clinical documentation, obtaining and/or reviewing separately obtained history, performing a medically appropriate examination, counseling and educating the patient/family/caregiver, and ordering medications, tests, or procedures. Medical Decision Making: Problems: Low: Stable chronic illness Data: Unique test result(s) reviewed: 3+ Assessment requiring an independent historian(s) Risk: Low: Low risk from testing/treatment Medical Decision Making Level: 3 - Low ___ Jono Wallace APRN.CNP Rheumatology Date: September 17, 2022 Time: 12:57 PM documented in this encounter [facility] 09-01-2022 History of Present illness Narrative Radiology Service Progress Note PATIENT NAME: Caity Rodriguez DATE OF SERVICE: September 01, 2022 TIME: 9:52 AM PATIENT IDENTITY VERIFICATION COMPLETED USING TWO (2) IDENTIFIERS: Name and Date of confirmed by patient verbally. FALL SCREENING: Has the patient had 2 falls in the last year or 1 fall with injury or currently using an Ambulatory Assistive Device (Walker, Cane, Wheelchair, Crutches, etc.)? No PATIENT GENDER DATA: Female. status: : No status: NO. PATIENT RELEVANT IMPLANT DATA REVIEWED: Not Applicable RADIOLOGY DEPARTMENT: General X-ray: Exam(s) Completed: Chest X-Ray Lower Extremity X-Ray(s): Feet, Bilateral Upper Extremity X-Ray(s): Hand, bilateral PERIPHERAL IV DATA: Not applicable SIGNED BY: Harjinder White September 01, 2022 9:52 AM documented in this encounter [facility] 09-01-2022 History of Present illness Narrative Images from the original note were not included. Rheumatology CONSULTATION Date of Service: 09/01/2022 Patient: Caity Rodriguez Medical Record: [id number] Primary Care Physician: Fernando Pedersen DO Last Rheumatology visit: None at [facility] Referring Provider: Jennifer Gutierrez [address] [place] [address] Caity Rodriguez is here today at request of Dr. Jennifer Gutierrez TREKKING GUIDE specifically for consultation of my opinion in regards to the chief complaint listed below. Correspondence will be shared today via the [employer] electronic health record or through regular mail, where applicable. History of Present Illness Caity Rodriguez is a 47 year old White female who presents on 09/01/2022 for an in-person visit for evaluation of Joint Pain. Caity reports a current pain level of 4 . Caity is both RF - 9 (06/28/2022) and CCP - 13.5 (08/12/2022) negative. Her most recent FABY was negative (06/28/2022). Patient is present here today with her daughter who also serves as co historian. C/o Joint pain in hands, hips, knees, ankle, feet. Experiencing more than a year. Last 6 months gotten worse. Joint pain Wax and wane Morning stiffness - hands are the worst. Last 15-20 minutes. Difficulty make fist in the morning. Inactivity makes her joint pain in hand worse. No swelling, no redness over the joints. Except sometimes her DIP joints get painful and red with her trigeminal/face pain. She picks her skin around the finger nails. C/o Fatigue. States that she drinks coffee/tea a lot. Fatigue and joint pain sometimes makes her nauseated. Takes Zofran as needed. She also gets motion sickness. No fever, No change in weight. Hx of trigeminal neuralgia. Had Microvascular decompression - due to trigeminal neuralgia. Still experiences face drooping and swelling. Follows up with neurologist. Gets Botox every 3 months for trigeminal neuralgia. C/o muscle pain in upper arm, and lower legs Meloxicam does not help. Rates her pain 3-4/10 in her face and knees. Covid vaccine X2 HX of MARIIA Family hx Daughter ?spondyloarthropathy on Imuran Grand mother has Hypothyroidism (+) in bold; all rest are negative or denies history of: Chest pain, shortness of breath, history of pleural effusion or pericarditis, oral/nasal ulcers, photosensitivity, rash, history of DVT/PE/&or miscarriages, renal disease, seizures, dry eyes, dry mouth, cervical lymphadenopathy or parotid gland swelling, Raynaud's phenomenon, alopecia, psoriasis, history of iritis/uveitis or scleritis, nail pitting, dactylitis, history of sacroilitis or inflammatory bowel disease, arm weakness in raising arms above head, leg weakness in standing up from a seated position, skin tightening, dysphagia, changes in vision, scalp tenderness, jaw claudication, stiffness in shoulders/hip girdle, auricular or nasal chondritis Patient-Entered Data PROMIS Assessments PROMIS Global Health - (T-Scores - the mean of general population = 50. Five points is a clinically meaningful difference.) 07/19/2021 06/27/2022 08/30/2022 Physical T-Score 42.3 42.3 39.8 Mental T-Score 62.5 59 43.5 PROMIS CAT Pain Interference 08/30/2022 PROMIS Pain Interference T-Score (range: 10 - 90) 62 (moderate) PROMIS Pain Interference Percentile 12 % PROMIS CAT Fatigue 08/30/2022 PROMIS Fatigue T-Score 64 (moderate) PROMIS Fatigue Percentile 8 % PROMIS PHYSICAL FUNCTION T-SCORE 08/30/2022 PROMIS Physical Function T-Score 40 (mild dysfunction) Physical Function Percentile 16 % RAPID 3 [facility] Activities of Daily Living 08/30/2022 8:09 PM Dress self? Without ANY difficulty Get in and out of bed? With SOME difficulty Walk outdoors? Without ANY difficulty Wash and dry body? Without ANY difficulty Get in and out of car? Without ANY difficulty RAPID 3 Disease Activity Weighed Score Levels: 0 - 1: Near Remission 1.3 - 2.0: Low Severity 2.3 - 4.0: Moderate Severity 4.3 - 10.0: High Severity RAPID-3 Weighed Score 08/30/2022 RAPID 3 Weighed Score 4.67 (High Severity (HS)) Review of Systems Review of Systems CONSTITUTION: Negative for: Fever and Recent weight change HEENT: Positive for: Mouth sores and Dry mouth Negative for: Nosebleeds and Trouble swallowing RESPIRATORY: Negative for: Cough, Shortness of breath and Pain with breathing GASTROINTESTINAL: Negative for: Melena, Diarrhea, Heartburn and Abdominal pain MUSCULOSKELETAL: Positive for: Arthralgias, Myalgias, Muscle weakness, Joint swelling and Morning Joint Stiffness NEUROLOGICAL: SKIN: Positive for: Nail changes Negative for: Rash, Skin changes and Hair loss EYES: Positive for: Eye pain, Eye redness and Eye dryness Negative for: visual disturbance CARDIOVASCULAR: Negative for: Chest pain and Leg swelling GENITOURINARY: Negative for: Dysuria and Hematuria HEMATOLOGIC/LYMPHATIC: Negative for: Swollen glandsAll other reviewed and negative other than HPI. Past Medical History PAST MEDICAL HISTORY Diagnosis Date Cholelithiasis with chronic cholecystitis 08/2021 Endometriosis Gall stone Hypercholesteremia MARIIA (obstructive sleep apnea) [facility] fx. [phone] Seasonal allergies Trigeminal neuralgia syndrome Currently on Dr. Matthias Baptiste Neurologist Vitamin D deficiency Past Surgical History PAST SURGICAL HISTORY Procedure Laterality Date BRAIN SURGERY HX Microvascular decompression CORRECT BUNION,OTHR METHODS 2011,2010 both feet L'SCOPE CHOLECYSTECTOMY 08/14/2021 LUMPECTOMY/RADIOTHERAPY DIAG MAMM/A10 2005 benign PAST SURGICAL HISTORY OF wisdom teeth PAST SURGICAL HISTORY OF exploratory laproscopy REMOVAL GALLBLADDER 08/14/2021 S BALLOON,UTERINE ABLATION [id number] 2009 STABISM SURG,PREV EYE SURG,NOT MUSC 1980 both eyes VAGINAL HYSTERECTOMY UTERUS 250 GM/< 06/2013 Hysterectomy, vaginal Family History FAMILY HISTORY Problem Relation Age of Onset Breast Cancer Mother 60, diagnosed unknown age Cancer Father kidney Hypertension Father Hypertension Paternal Grandmother Diabetes Paternal Grandmother Alzheimer's Disease Paternal Grandfather Social History Social History Tobacco Use Smoking status: Never Smokeless tobacco: Never Vaping Use Vaping Use: Never used Substance Use Topics Alcohol use: Yes Comment: occaionally wine Drug use: No Current Medications Current Outpatient Medications Medication Sig meloxicam (MOBIC) 15 mg tablet Take 15 mg by mouth. lamoTRIgine (LAMICTAL) 100 mg tablet Take 75 mg by mouth three times daily. hydrocortisone (PREPARATION H HYDROCORTISONE) 1 % cream Apply to affected area twice daily. pregabalin (LYRICA) 150 mg capsule 150 mg. MULTIVITAMIN ORAL Take by mouth once daily. ondansetron orally disintegrating (ZOFRAN ODT) 4 mg disintegrating tablet Take 1 tablet by mouth every 6 hours as needed for Nausea/Vomiting. CPAP Initiate CPAP @ 10 cm of water with humidification, heated hose. Nasal cannula - women's small , filters, tubing, humidifier and lifetime supplies. New head gear. Resmed Airsense 10 Autoset Machine loratadine (CLARITIN) 10 mg tablet Take 10 mg by mouth once daily. ACETAMINOPHEN (TYLENOL ORAL) Take by mouth. baclofen (LIORESAL) 10 mg tablet Take 1 tablet by mouth three times daily as needed (Face pain). esomeprazole (NEXIUM) 40 mg capsule TAKE 1 CAPSULE BY MOUTH DAILY BEFORE BREAKFAST. 1/2 HR BEFORE MEAL. Labs Component Latest Ref Rng & Units 06/28/2022 08/12/2022 Protein, Total 6.3 - 8.0 g/dL 7.7 Albumin 3.9 - 4.9 g/dL 4.6 Calcium 8.5 - 10.2 mg/dL 9.7 Bilirubin, Total 0.2 - 1.3 mg/dL 0.4 Alkaline Phosphatase 34 - 123 U/L 58 AST 13 - 35 U/L 25 ALT 7 - 38 U/L 17 Glucose 74 - 99 mg/dL 85 BUN 7 - 21 mg/dL 9 Creatinine 0.58 - 0.96 mg/dL 0.72 Sodium 136 - 144 mmol/L 138 Potassium 3.7 - 5.1 mmol/L 4.6 Chloride 97 - 105 mmol/L 104 CO2 22 - 30 mmol/L 27 Anion Gap 9 - 18 mmol/L 7 (L) eGFR >=60 mL/min/1.73m 105 WBC 3.70 - 11.00 k/uL 7.81 RBC 3.90 - 5.20 m/uL 4.19 Hemoglobin 11.5 - 15.5 g/dL 13.1 Hematocrit 36.0 - 46.0 % 40.2 MCV 80.0 - 100.0 fL 95.9 MCH 26.0 - 34.0 pg 31.3 MCHC 30.5 - 36.0 g/dL 32.6 RDW-CV 11.5 - 15.0 % 14.2 Platelet Count 150 - 400 k/uL 344 MPV 9.0 - 12.7 fL 10.2 Absolute nRBC <0.01 k/uL <0.01 CCP Antibody IgG Qualitative Negative Negative CCP Antibody, IgG <20 Units <15 Sm Antibody Negative Negative Anti-Sm <1.0 AI <0.2 SENIOR MEDICAL DIRECTOR Antibody QUAL Negative Positive (A) Anti-SENIOR MEDICAL DIRECTOR <1.0 AI 1.0 (H) SSA Antibody Qual Negative Negative Anti-SSA <1.0 AI <0.2 Anti-SSB <1.0 AI <0.2 SSB Antibody Qual Negative Negative CENTROMERE AB QUAL Negative Negative Centromere Ab <1.0 AI <0.2 Scleroderma Ab Qual Negative Negative Scl-70 Abs, EIA <1.0 AI <0.2 SLOANE 1 ANTIBODY QUAL Negative Negative Sloane 1 Antibody <1.0 AI <0.2 Ribosomal SENIOR MEDICAL DIRECTOR Qualitative Negative Negative Ribosomal SENIOR MEDICAL DIRECTOR Ab <1.0 AI <0.2 Chromatin Ab Qual Negative Negative Chromatin Ab <1.0 AI <0.2 CRP <0.9 mg/dL 0.4 WSR 0 - 20 mm/hr 16 FABY by EIA, Qual Negative Negative Rheumatoid Factor <16 IU/mL <10 ANCA Latest Ref Rng & Units 02/03/2017 MYELOPEROXIDASE ANTIBODY (MPO) <1.0 AI Test not performed on samples negative by immunofluorescence. PROTEINASE 3 ANTIBODY <1.0 AI Test not performed on samples negative by immunofluorescence. P-ANCA FLUORESCENCE Negative Negative C-ANCA FLUORESCENCE Negative Negative PANCA <1.0 AI Test not performed on samples negative by immunofluorescence. Imaging US breast 03/2022 Left IMPRESSION: BENIGN FINDING There is no sonographic evidence of malignancy. The stable 0.6 cm x 0.7 cm x 0.3 cm lobulated lesion in the left breast at 8 o'clock middle depth is benign. The stable 1.5 cm x 1.4 cm x 0.9 cm oval cyst in the left breast at 3 o'clock posterior depth is benign. The stable 1.8 cm oval cyst in the left breast at 7 o'clock anterior depth is benign. Right IMPRESSION: BENIGN FINDING There is no sonographic evidence of malignancy. The stable 0.8 cm x 0.7 cm x 0.8 cm oval cyst in the right breast at 10 o'clock middle depth is benign. The 0.7 cm x 0.8 cm x 0.6 cm oval cyst in the right breast at 9 o'clock middle depth is benign. XR Lumbar 01/2018 MINIMAL RETROLISTHESIS OF L5 RELATION S1 WITH LIMITED FLEXION OTHERWISE NORMAL LUMBAR SPINE. Health Maintenance Current Immunizations Reviewed on 09/01/2022 Name Date COVID-19 vaccine, monovalent (MODERNA) 08/29/2021 , 08/01/2021 INFLUENZA 12/15/2016 Tdap (Age 7+) 06/28/2022 , 02/16/2016 , 06/28/2012 Physical Exam GENERAL APPEARANCE: Well groomed. Alert and oriented x 3. In no distress. VITAL SIGNS: BP 151/85 Pulse 86 Ht 5' 5 (1.65m) Wt 189 lb (85.7kg) BMI 31.45 kg/(m^2). Physical Exam Constitutional: Appearance: Normal appearance. Cardiovascular: Rate and Rhythm: Normal rate and regular rhythm. Pulses: Normal pulses. Heart sounds: Normal heart sounds. Pulmonary: Effort: Pulmonary effort is normal. Breath sounds: Normal breath sounds. Musculoskeletal: General: Normal range of motion. Cervical back: Normal range of motion and neck supple. Skin: General: Skin is warm. Capillary Refill: Capillary refill takes less than 2 seconds. Neurological: General: No focal deficit present. Mental Status: She is alert and oriented to person, place, and time. Joint Exam 09/01/2022 The following joints were examined and normal: Left Sternoclavicular, Right Sternoclavicular, Left Acromioclavicular, Right Acromioclavicular, Left Glenohumeral, Right Glenohumeral, Left Elbow, Right Elbow, Left Wrist, Right Wrist, Left MCP 1, Right MCP 1, Left MCP 2, Right MCP 2, Left MCP 3, Right MCP 3, Left MCP 4, Right MCP 4, Left MCP 5, Right MCP 5, Left IP, Right IP, Left PIP 2, Right PIP 2, Left PIP 3, Right PIP 3, Left PIP 4, Right PIP 4, Left PIP 5, Right PIP 5, Left Knee, Right Knee, Left Ankle, Right Ankle, Left MTP 1, Right MTP 1, Left MTP 2, Right MTP 2, Left MTP 3, Right MTP 3, Left MTP 4, Right MTP 4, Left MTP 5, Right MTP 5 Joint Exam Data (across time) Joint Exam 09/01/2022 Total Tender 0 Total Swollen 0 Impression ASSESSMENT/PLAN: 1. Positive sm/SENIOR MEDICAL DIRECTOR antibody - ICD9: 795.79, ICD10: R76.8 (primary diagnosis) - C3 COMPLEMENT BLD - C4 COMPLEMENT BLD - URINALYSIS, WITH MICROSCOPIC - PROTEIN CREATININE RATIO - DNA AB DS + CONF BLD - LUPUS ANTICOAG PL - XR CHEST 2V FRONTAL/LAT - XR HAND/WRIST SURVEY ARTHRITIS 1V PA BILATERAL - XR FOOT SURVEY ARTHRITIS 1V AP BILATERAL - ALDOLASE BLD - FABY BY IFA SCREEN 2. Arthralgia, unspecified joint - ICD9: 719.40, ICD10: M25.50 - C3 COMPLEMENT BLD - C4 COMPLEMENT BLD - XR CHEST 2V FRONTAL/LAT - XR HAND/WRIST SURVEY ARTHRITIS 1V PA BILATERAL - XR FOOT SURVEY ARTHRITIS 1V AP BILATERAL 3. Muscle pain - ICD9: 729.1, ICD10: M79.10 - CK CREATINE KINASE - ALDOLASE BLD Jono Wallace APRN.TREKKING GUIDE Return in about 2 weeks (around 09/15/2022). I spent a total of 70 minutes on the date of the service which included preparing to see the patient, [id number] patient care, completing clinical documentation, obtaining and/or reviewing separately obtained history, performing a medically appropriate examination, counseling and educating the patient/family/caregiver, and ordering medications, tests, or procedures. Medical Decision Making: Problems: Low: Stable chronic illness Data: Unique test result(s) reviewed: 3+ Unique test(s) ordered: 3+ Assessment requiring an independent historian(s) Risk: Moderate: Moderate risk from testing/treatment Medical Decision Making Level: 4 - Moderate ___ Jono Wallace APRN.CNP Rheumatology Date: September 01, 2022 Time: 7:47 AM documented in this encounter [facility] 08-13-2022 Miscellaneous Notes Pt informed, verbalized understanding. Please assist with scheduling rheumatology appt. Shelli Sanchez Ma Please assist with scheduling with rheumatology! Consult placed on 08/04 and 08/09 -- refer to these encounters. No appointment scheduled. Please let patient know that SENIOR MEDICAL DIRECTOR antibody was positive. This can be elevated in lupus. Needs further evaluation with rheumatology. Thank you, Jennifer Gutierrez APRN.CNP documented in this encounter [facility] 08-06-2022 Miscellaneous Notes This was addressed on 08/04. Refer to other message. Closing this. Jennifer Gutierrez APRN.CNP documented in this encounter [facility] 08-05-2022 Miscellaneous Notes documented in this encounter [facility] 06-28-2022 Instructions Jennifer Gutierrez APRN.CNP - 06/28/2022 9:01 AM EDT Vitamin D -- 1997-8264 units per day Calcium -- 1200 mg daily documented in this encounter [facility] 06-28-2022 History of Present illness Narrative Chief Complaint Patient presents with: Arthritis HPI Caity Rodriguez is a 47 year old female who presents here today for Above Complaints. Mar is an established patient of Dr. Slava DO. Mar is a new patient to me today. Concerns today... Joint paint -- Started as L knee pain numerous years ago. Gradually worsening pain to numerous joints. Most effected are bilateral knees, bilateral hands/fingers (all digits), and bilateral hips. Very stiff and worse in the morning. Will improve throughout the day. Denies any redness to joints or related systemic symptoms such as extreme fatigue or flu-like symptoms. Reports mild fatigue but pt relating this to numerous medication regimen. Does report joints to be warm to touch sometimes and mildly swollen. Daughter has hx of arthritis (not RA). Hx of dx of trigeminal neuralgia --- follows with neurologist routinely at [facility] every 3 months. Has switched medication recently. Now on lamotrigine. Concerns about joint pain as side effect? Past medical history, appointments, medications, allergies reviewed. Previous Medical History PAST MEDICAL HISTORY Diagnosis Date Cholelithiasis with chronic cholecystitis 08/2021 Endometriosis Gall stone Hypercholesteremia MARIIA (obstructive sleep apnea) [facility] fx. [phone] Seasonal allergies Trigeminal neuralgia syndrome Currently on Dr. Matthias Baptiste Neurologist Vitamin D deficiency Previous Surgical History PAST SURGICAL HISTORY Procedure Laterality Date BRAIN SURGERY HX Microvascular decompression CORRECT BUNION,OTHR METHODS 2011,2010 both feet L'SCOPE CHOLECYSTECTOMY 08/14/2021 LUMPECTOMY/RADIOTHERAPY DIAG MAMM/A10 2005 benign PAST SURGICAL HISTORY OF wisdom teeth PAST SURGICAL HISTORY OF exploratory laproscopy REMOVAL GALLBLADDER 08/14/2021 S BALLOON,UTERINE ABLATION [id number] 2008 STABISM SURG,PREV EYE SURG,NOT MUSC 1980 both eyes VAGINAL HYSTERECTOMY UTERUS 250 GM/< 06/2013 Hysterectomy, vaginal Family History FAMILY HISTORY Problem Relation Age of Onset Breast Cancer Mother 60, diagnosed unknown age Cancer Father kidney Hypertension Father Hypertension Paternal Grandmother Diabetes Paternal Grandmother Alzheimer's Disease Paternal Grandfather Patient Allergies ALLERGIES Allergen Reactions Adhesive Tape-Silic* Hives Steri-strips Chlorhexidine Rash Widespread itchy rash developed following surgical site prep for lap brain Dermabond [Octyl 2-* Hives Raised, red itchy welts developed at every port site where this was used following laparoscopic cholecystectomy Tegretol [Carbamaze* Hives Current Medications Current Outpatient Medications on File Prior to Visit Medication Sig lamoTRIgine (LAMICTAL) 100 mg tablet Take 75 mg by mouth three times daily. hydrocortisone (PREPARATION H HYDROCORTISONE) 1 % cream Apply to affected area twice daily. pregabalin (LYRICA) 150 mg capsule 150 mg. MULTIVITAMIN ORAL Take by mouth once daily. ondansetron orally disintegrating (ZOFRAN ODT) 4 mg disintegrating tablet Take 1 tablet by mouth every 6 hours as needed for Nausea/Vomiting. CPAP Initiate CPAP @ 10 cm of water with humidification, heated hose. Nasal cannula - women's small , filters, tubing, humidifier and lifetime supplies. New head gear. Resmed Airsense 10 Autoset Machine loratadine (CLARITIN) 10 mg tablet Take 10 mg by mouth once daily. ACETAMINOPHEN (TYLENOL ORAL) Take by mouth. baclofen (LIORESAL) 10 mg tablet Take 1 tablet by mouth three times daily as needed (Face pain). esomeprazole (NEXIUM) 40 mg capsule TAKE 1 CAPSULE BY MOUTH DAILY BEFORE BREAKFAST. 1/2 HR BEFORE MEAL. cenobamate (XCOPRI ORAL) Take 250 mg by mouth. 150 mg daily No current facility-administered medications on file prior to visit. Social History Social History Tobacco Use Smoking status: Never Smokeless tobacco: Never Vaping Use Vaping Use: Never used Substance Use Topics Alcohol use: Yes Comment: occaionally wine Drug use: No REVIEW OF SYSTEMS: as above Reviewed relevant PMHx, PSHx, Social Hx, current medications and allergies. Review of Symptoms REVIEW OF SYSTEMS See HPI. All other systems are negative. EXAM: BP 128/70 Pulse 86 Resp 14 Wt 81.6 kg (180 lb) BMI 29.95 kg/m General Appearance: Well appearing, alert, in no acute distress, well-hydrated, well nourished.. Skin: Skin color, texture, turgor normal, no suspicious rashes or lesions. Head: Normocephalic, no masses, lesions, tenderness or abnormalities. Lungs: Lungs clear to auscultation. No wheezing, rhonchi, rales.. Heart: RRR without murmur, gallop, or rubs. No ectopy. Extremities: No deformities, edema, skin discoloration, clubbing or cyanosis. Good capillary refill. . Musculoskeletal: No joint swelling, deformity, or tenderness. Peripheral Pulses: Normal. Neurologic: Gait normal. Reflexes normal and symmetric. Sensation grossly intact.. Health Maintenance List HEPATITIS B(1 of 3 - 3-dose series) Never done HEPATITIS C SCREENING Never done COVID-19 VACCINE(3 - Booster for Moderna series) due on 01/27/2022 DTAP,TDAP,TD(2 - Td or Tdap) due on 06/28/2022 MAMMOGRAM due on 08/10/2022 DEPRESSION SCREENING due on 07/06/2022 INFLUENZA(1) due on 07/15/2022 LIPID SCREEN due on 01/20/2023 COLORECTAL CANCER SCREENING due on 06/14/2023 DIABETES SCREEN due on 07/01/2024 HIV SCREENING Completed PAP TESTING Discontinued HPV TESTING Discontinued ASSESSMENT/PLAN: 1. Arthralgia, unspecified joint - ICD9: 719.40, ICD10: M25.50 (primary diagnosis) Concerns for RA d/t bilateral nature and numerous joint involvement. Start Mobic 15 mg daily. - C-REACTIVE PROTEIN (CRP) - SED RATE WESTERGREN - FABY BLOOD - RHEUMATOID FACTOR BL - COMP METABOLIC PANEL - CBC - MELOXICAM 15 MG TABLET - CCP ANTIBODY IGG - ANTI NERIS ID 2. Encounter for immunization - ICD9: V03.89, ICD10: Z23 - TDAP VACCINE AGE 7+ IM 3. Obesity, Class I, BMI 30-34.9 - ICD9: 278.00, ICD10: E66.9 Stable - Behavioral intervention, - Eat well program, and - Continue current medications 4. Trigeminal neuralgia - ICD9: 350.1, ICD10: G50.0 Stable. Well controlled. Continue to follow with neurologist every 3 months. RTO as needed. Prescription instructions reviewed with patient as applicable. Potential red flag symptoms discussed with the patient. Reviewed appropriate action plan to take if red flag symptoms occur. Patient agreeable to treatment plan. Jennifer Gutierrez APRN.CNP [address] [place] [address] documented in this encounter [facility] 05-14-2022 Miscellaneous Notes 06/14 colon/egd [facility] Per patient called in and wanted to switch from [facility] to [facility] due to insurance not approving [place] [facility] due to her insurance not being contracted with [facility]. Patient is okay seeing [place] at [facility] as her insurance is in contract with provider and location Orders are faxed over and all good to go [facility] 05/20/2022 egd colon [facility] Post-operative nausea and vomiting documented in this encounter [facility] 05-10-2022 Nurse Note REVIEW OF SYSTEMS: General: The patient denies fatigue, denies weight loss, denies weight gain, denies feeling hot, and denies feelings of cold. Eyes: The patient denies glaucoma, NOTES eye injury/surgery, wears glasses or contacts. Ear/Nose/Throat: The patient NOTES allergies, denies hayfever, denies ear infections, and denies bloody noses. Cardiovascular: The patient denies chest pain, denies heart disease, denies high blood pressure,denies cardiac stent, denies prior heart attack, denies irregular heart beat, denies high cholesterol, denies poor circulation, denies heart failure, other cardiac issues, denies claudication, denies cold feet, denies peripheral arterial stent. Respiratory: The patient denies tuberculosis, denies pneumonia, denies frequent cough, denies pulmonary embolism, denies shortness of breath, and denies coughing up blood. Gastrointestinal: The patient denies difficulty swallowing, denies acid reflux, denies ulcers, denies vomiting, denies jaundice/hepatitis, denies gallbladder problems, denies black or tarry stools, NOTES hemorrhoids, denies bleeding from rectum, denies diverticulitis, NOTES constipation, NOTES diarrhea, denies loss of stool control, and denies hernias. Kidney/Bladder: The patient denies kidney stones, denies urine infections, and denies bloody urine. Skin: The patient denies a history of skin cancer, denies bleeding/changing moles, and denies a history of skin rash. Neurologic: The patient denies a history of epilepsy/convulsions, NOTES headaches, denies head/spinal injuries, and denies stroke/TIA. Psychiatric: The patient denies psychiatric medications, denies depression, and denies voices, denies substance abuse. Endocrine: The patient denies thyroid disorders, denies diabetes, and denies hormonal problems. Hematologic: The patient NOTES a history of bruising, denies bleeding, and denies anemia, denies blood clots. Infections: The patient denies a history of measles and mumps, denies rheumatic fever, and denies sexually transmitted diseases. Musculoskeletal: The patient denies back pain/injury, denies back problems, denies sciatica, denies knee/foot trouble, denies arthritis, or denies gout. When was patient's last Mammogram screening? 04/07/2022 Last Colonoscopy: None Arleth Anguiano documented in this encounter [facility] 05-10-2022 History of Present illness Narrative HISTORY AND PHYSICAL Caity Rodriguez 1975 REFERRING PHYSICIAN: Fernando Pedersen DO CHIEF COMPLAINT: Consult (Colonoscopy & Hemorrhoid) HPI: The patient is a 47 year old female referred for endoscopy. Caity notes recent fluctuation in bowel habits between loose stools and constipation. Notes a few episodes of thinner stools as well as bright red blood with bowel movements. Notes some intermittent right-sided upper as well as lower abdominal pain which has improved with bowel movements. She was seen in the emergency department at [place] for one of these abdominal pain episodes in June 2022, notes reviewed. Had CT scan without acute findings noted. Patient denies any weight changes or black tarry stools. Denies family history of colon issues. The patient NOTES history of GERD and is maintained on a PPI. Caity has not undergone prior endoscopy. Patient denies chest pain, shortness of breath or recent hospitalizations. She does note that she typically has had nausea and vomiting with every kind of sedation or anesthesia that she has received, and that oral antiemetics are not typically helpful. PAST MEDICAL HISTORY Diagnosis Date Cholelithiasis with chronic cholecystitis 08/2021 Endometriosis Gall stone Hypercholesteremia MARIIA (obstructive sleep apnea) [facility] fx. [phone] Seasonal allergies Trigeminal neuralgia syndrome Currently on Dr. Matthias Baptiste Neurologist Vitamin D deficiency PAST SURGICAL HISTORY Procedure Laterality Date BRAIN SURGERY HX Microvascular decompression CORRECT BUNION,OTHR METHODS 2011,2010 both feet L'SCOPE CHOLECYSTECTOMY 08/14/2021 LUMPECTOMY/RADIOTHERAPY DIAG MAMM/A10 2005 benign PAST SURGICAL HISTORY OF wisdom teeth PAST SURGICAL HISTORY OF exploratory laproscopy REMOVAL GALLBLADDER 08/14/2021 S BALLOON,UTERINE ABLATION [id number] 2009 STABISM SURG,PREV EYE SURG,NOT MUSC 1980 both eyes VAGINAL HYSTERECTOMY UTERUS 250 GM/< 06/2013 Hysterectomy, vaginal Current Outpatient Medications Medication Sig lamoTRIgine (LAMICTAL) 100 mg tablet Take 75 mg by mouth three times daily. hydrocortisone (PREPARATION H HYDROCORTISONE) 1 % cream Apply to affected area twice daily. pregabalin (LYRICA) 150 mg capsule 150 mg. MULTIVITAMIN ORAL Take by mouth once daily. esomeprazole (NEXIUM) 40 mg capsule TAKE 1 CAPSULE BY MOUTH DAILY BEFORE BREAKFAST. 1/2 HR BEFORE MEAL. cenobamate (XCOPRI ORAL) Take 250 mg by mouth. 150 mg daily ondansetron orally disintegrating (ZOFRAN ODT) 4 mg disintegrating tablet Take 1 tablet by mouth every 6 hours as needed for Nausea/Vomiting. CPAP Initiate CPAP @ 10 cm of water with humidification, heated hose. Nasal cannula - women's small , filters, tubing, humidifier and lifetime supplies. New head gear. Resmed Airsense 10 Autoset Machine loratadine (CLARITIN) 10 mg tablet Take 10 mg by mouth once daily. ACETAMINOPHEN (TYLENOL ORAL) Take by mouth. baclofen (LIORESAL) 10 mg tablet Take 1 tablet by mouth three times daily as needed (Face pain). No current facility-administered medications for this visit. ALLERGIES: Adhesive Tape-Silicones, Chlorhexidine, Dermabond [Octyl 2-Cyanoacrylate], and Tegretol [Carbamazepine] PERSONAL HISTORY: Social History Tobacco Use Smoking status: Never Smoker Smokeless tobacco: Never Used Vaping Use Vaping Use: Never used Substance Use Topics Alcohol use: Yes Comment: occaionally wine Drug use: No FAMILY HISTORY: FAMILY HISTORY Problem Relation Age of Onset Breast Cancer Mother 60, diagnosed unknown age Cancer Father kidney Hypertension Father Hypertension Paternal Grandmother Diabetes Paternal Grandmother Alzheimer's Disease Paternal Grandfather REVIEW OF SYMPTOMS: The review of systems data was entered by the nurse and reviewed by tn Nursing Notes: Arleth Anguiano 05/10/2022 8:37 AM Signed REVIEW OF SYSTEMS: General: The patient denies fatigue, denies weight loss, denies weight gain, denies feeling hot, and denies feelings of cold. Eyes: The patient denies glaucoma, NOTES eye injury/surgery, wears glasses or contacts. Ear/Nose/Throat: The patient NOTES allergies, denies hayfever, denies ear infections, and denies bloody noses. Cardiovascular: The patient denies chest pain, denies heart disease, denies high blood pressure,denies cardiac stent, denies prior heart attack, denies irregular heart beat, denies high cholesterol, denies poor circulation, denies heart failure, other cardiac issues, denies claudication, denies cold feet, denies peripheral arterial stent. Respiratory: The patient denies tuberculosis, denies pneumonia, denies frequent cough, denies pulmonary embolism, denies shortness of breath, and denies coughing up blood. Gastrointestinal: The patient denies difficulty swallowing, denies acid reflux, denies ulcers, denies vomiting, denies jaundice/hepatitis, denies gallbladder problems, denies black or tarry stools, NOTES hemorrhoids, denies bleeding from rectum, denies diverticulitis, NOTES constipation, NOTES diarrhea, denies loss of stool control, and denies hernias. Kidney/Bladder: The patient denies kidney stones, denies urine infections, and denies bloody urine. Skin: The patient denies a history of skin cancer, denies bleeding/changing moles, and denies a history of skin rash. Neurologic: The patient denies a history of epilepsy/convulsions, NOTES headaches, denies head/spinal injuries, and denies stroke/TIA. Psychiatric: The patient denies psychiatric medications, denies depression, and denies voices, denies substance abuse. Endocrine: The patient denies thyroid disorders, denies diabetes, and denies hormonal problems. Hematologic: The patient NOTES a history of bruising, denies bleeding, and denies anemia, denies blood clots. Infections: The patient denies a history of measles and mumps, denies rheumatic fever, and denies sexually transmitted diseases. Musculoskeletal: The patient denies back pain/injury, denies back problems, denies sciatica, denies knee/foot trouble, denies arthritis, or denies gout. When was patient's last Mammogram screening? 04/07/2022 Last Colonoscopy: None Arleth Anguiano I have confirmed and edited as necessary, the PFSH and ROS obtained by others. Ann-Marie Vazquez PA-C PHYSICAL EXAMINATION: General: The patient is 47 year old female, well nourished, well hydrated in no acute distress. The patient is oriented to time, place, and person. VITALS: Blood pressure 128/84, pulse 91, temperature 36.5 C (97.7 F), height 165.1 cm (5' 5 ), weight 78.9 kg (174 lb), SpO2 99 %. Body mass index is 28.96 kg/m . HEENT: Normal cephalic, ataumatic, pupils are equally round, sclera are anicteric, mucous membranes are moist, oropharynx is clear. Neck has no masses, asymmetry or lymphadenopathy. Respiratory: Clear to auscultation and percussion. Normal respiratory excursion and pattern. Cardiac: Examination is regular rate and rhythm. Normal S1/S2 Abdominal exam: Soft, nontender, with no palpable masses. No hepatosplenomegaly. No palpable hernias. Extremities: no clubbing, cyanosis or edema. No adenopathy. LABORATORY VALUES: As Noted RADIOLOGIC STUDIES: As Noted Assessment IMPRESSION: change in bowel habits, rectal bleeding, upper and lower abdominal pain, GERD PLAN: I have reviewed my findings with the surgeon. Will plan for upper and lower endoscopy with biopsies. We discussed the risks and benefits of the planned endoscopy. I have informed the patient that complications can occur including failure to complete the endoscopy and perforation. The patient had the opportunity to ask questions concerning the planned endoscopy. My staff has also explained the procedure to the patient in understandable terms and has given the patient printed material concerning the procedure. The patient freely consents to surgery. The patient was offered a surgery/procedure at a [facility] facility. I have counseled the patient regarding the risk of exposure to and/or potential harm posed by the COVID-19 virus with having a surgery/procedure at this time versus the risk of delaying the surgery/procedure. It is not possible to know either the risk of delaying the surgery or procedure or chance of getting an infection with perfect accuracy, but a joint decision was made between the patient and myself to proceed at this time with endoscopy. I plan to use Golytely bowel preparation I have explained to the patient the difference between IV conscious sedation and MAC anesthesia - and I have offered either, according to the patient's wishes. I have explained that with IV conscious sedation there is no anesthesia provider available and therefore there is a limitation of the amount of IV medications that can be given and that the patient may wake up in the middle of the procedure and/or experience pain/discomfort during the procedure. Further discussion was done and the patient was given the opportunity to ask questions and all questions were answered. The patient chooses MAC anesthesia Will also plan to have patient premedicated for nausea at time of procedure as she notes nausea and vomiting with any kind of sedation or anesthesia in the past Diagnoses: (R19.4) Change in bowel habits (primary encounter diagnosis) (K92.1) Blood in stool (R10.84) Generalized abdominal pain (R11.2, Z98.890) Post-operative nausea and vomiting Ann-Marie Vazquez PA-C documented in this encounter [facility] 04-07-2022 History of Present illness Narrative Chief Complaint Patient presents with: Colon Cancer: screening HPI Caity Rodriguez is a 47 year old female who presents here today for Above Complaints. Today: Interested in health maintenance-colonoscopy. Bleeds a lot with BM, stool is very skinny, softer stool, normal brown color. Has something near her rectum-if stands up, feels like something is inside her rectum, is painful when sitting. Worse following bowel movements. Bright red, sometimes in toilet, other times on toilet tissue. Is not prolonged following bowel movement. Past medical history, appointments, medications, allergies reviewed. Previous Medical History PAST MEDICAL HISTORY Diagnosis Date Cholelithiasis with chronic cholecystitis 08/2021 Endometriosis Gall stone Hypercholesteremia MARIIA (obstructive sleep apnea) [facility] fx. [phone] Seasonal allergies Trigeminal neuralgia syndrome Currently on Dr. Matthias Baptiste Neurologist Vitamin D deficiency Previous Surgical History PAST SURGICAL HISTORY Procedure Laterality Date BRAIN SURGERY HX Microvascular decompression CORRECT BUNION,OTHR METHODS 2011,2010 both feet L'SCOPE CHOLECYSTECTOMY 08/14/2021 LUMPECTOMY/RADIOTHERAPY DIAG MAMM/A10 2005 benign PAST SURGICAL HISTORY OF wisdom teeth PAST SURGICAL HISTORY OF exploratory laproscopy REMOVAL GALLBLADDER 08/14/2021 S BALLOON,UTERINE ABLATION 13008 2009 STABISM SURG,PREV EYE SURG,NOT MUSC 1980 both eyes VAGINAL HYSTERECTOMY UTERUS 250 GM/< 06/2013 Hysterectomy, vaginal Family History FAMILY HISTORY Problem Relation Age of Onset Breast Cancer Mother 60, diagnosed unknown age Cancer Father kidney Hypertension Father Hypertension Paternal Grandmother Diabetes Paternal Grandmother Alzheimer's Disease Paternal Grandfather Patient Allergies ALLERGIES Allergen Reactions Adhesive Tape-Silic* Hives Steri-strips Chlorhexidine Rash Widespread itchy rash developed following surgical site prep for lap brain Dermabond [Octyl 2-* Hives Raised, red itchy welts developed at every port site where this was used following laparoscopic cholecystectomy Tegretol [Carbamaze* Hives Current Medications Current Outpatient Medications on File Prior to Visit Medication Sig lamoTRIgine (LAMICTAL) 100 mg tablet Take 75 mg by mouth three times daily. pregabalin (LYRICA) 150 mg capsule 150 mg. MULTIVITAMIN ORAL Take by mouth once daily. cenobamate (XCOPRI ORAL) Take 250 mg by mouth. 150 mg daily ondansetron orally disintegrating (ZOFRAN ODT) 4 mg disintegrating tablet Take 1 tablet by mouth every 6 hours as needed for Nausea/Vomiting. CPAP Initiate CPAP @ 10 cm of water with humidification, heated hose. Nasal cannula - women's small , filters, tubing, humidifier and lifetime supplies. New head gear. [employer] Airsense 10 [employer] loratadine (CLARITIN) 10 mg tablet Take 10 mg by mouth once daily. ACETAMINOPHEN (TYLENOL ORAL) Take by mouth. baclofen (LIORESAL) 10 mg tablet Take 1 tablet by mouth three times daily as needed (Face pain). HERBAL DRUGS ORAL Take by mouth. Tumeric (Patient not taking: Reported on 09/04/2021 ) esomeprazole (NEXIUM) 40 mg capsule TAKE 1 CAPSULE BY MOUTH DAILY BEFORE BREAKFAST. 1/2 HR BEFORE MEAL. lacosamide (VIMPAT) 150 mg tab Take by mouth twice daily. (Patient not taking: Reported on 09/04/2021) cholecalciferol (VITAMIN D3) 2,000 unit tablet Take 1 tablet by mouth once daily. No current facility-administered medications on file prior to visit. Social History Social History Tobacco Use Smoking status: Never Smoker Smokeless tobacco: Never Used Vaping Use Vaping Use: Never used Substance Use Topics Alcohol use: Yes Comment: occaionally wine Drug use: No Review of Symptoms REVIEW OF SYSTEMS See HPI, otherwise negative EXAM: BP 112/82 (BP Site: Left Arm, BP Position: Sitting, BP Cuff Size: Regular Adult) Pulse 85 Resp 16 Wt 79.4 kg (175 lb) SpO2 98% BMI 29.12 kg/m General Appearance: Well appearing, alert, in no acute distress, well-hydrated, well nourished.. Abdomen: Normal abdominal exam, Abdomen soft, non-tender. Bowel sounds normal. No masses, organomegaly. Rectal: Negative findings: digital rectal exam negative, anal sphincter tone normal, Positive findings: thrombosed external hemorrhoid. Health Maintenance List HEPATITIS C SCREENING Never done COLORECTAL CANCER SCREENING Never done COVID-19 VACCINE(3 - Booster for Moderna series) due on 01/27/2022 DTAP,TDAP,TD(2 - Td or Tdap) due on 06/28/2022 DEPRESSION SCREENING due on 07/06/2022 INFLUENZA(Season Ended) due on 07/15/2022 MAMMOGRAM due on 08/10/2022 LIPID SCREEN due on 01/20/2023 DIABETES SCREEN due on 07/01/2024 HIV SCREENING Completed PAP TESTING Discontinued HPV TESTING Discontinued Data reviewed Previous records, office notes. ASSESSMENT/PLAN: 1. External hemorrhoid - ICD9: 455.3, ICD10: K64.4 (primary diagnosis) Begin with topical cream. If no improvement with consider additional treatment. Will also be seeing general surgery for colonoscopy/consult. Recommend she discuss this with them as well. - HYDROCORTISONE 1 % TOPICAL CREAM 2. Screening for colon cancer - ICD9: V76.51, ICD10: Z12.11 - CONSULT TO GENERAL SURGERY - HYDROCORTISONE 1 % TOPICAL CREAM 3. Family history of colonic polyps - ICD9: V18.51, ICD10: Z83.71 - CONSULT TO GENERAL SURGERY - HYDROCORTISONE 1 % TOPICAL CREAM Destini Mi APRN.BEULAH documented in this encounter [facility] 04-07-2022 Instructions Shelli Sanchez Ma - 04/07/2022 1:02 PM EDT Schedule with general surgery to discuss screening colonoscopy. Let me know via MyChart in about 3 weeks if things aren't improving. At that time we can consider other treatment. documented in this encounter [facility] 03-28-2022 Hospital Discharge instructions Patient Education 03/28/2022 03:20:37 Ovarian Cyst Ovarian Cysts The ovaries are two small organs located on each side of a woman s uterus (womb). They are part of the female reproductive system. Ovarian cysts are sacs filled with fluid or tissue that form on or inside the ovaries. Ovarian cysts are common in women, especially during childbearing years. There are different types of cysts. Most are harmless (benign) and go away on their own. They often cause no symptoms. If symptoms do occur, they can include mild pain or pressure in the lower belly (abdomen). Cysts that are large or break (rupture) may cause more severe pain and symptoms. In these cases, you may need hospital care or treatment such as surgery. You may need more extensive treatment if a cyst causes an ovary to twist (called torsion) or if your doctor suspects your cyst is cancerous. Keep in mind that most cysts are not cancerous, however. General care To help relieve pain, your healthcare provider may recommend using owkn-kxd-aahjlgj pain medicine. If needed, your provide may prescribe stronger pain medicine. Depending on the type of cyst you have, your healthcare provider may advise taking control pills. These help shrink cysts in certain cases. They may also help prevent new cysts from forming. Be sure to take these medicines as directed if they are prescribed. Your healthcare provider may advise you to watch your symptoms over time to see if they go away or worsen. Regular ultrasound tests may also be advised. These can help check if a cyst goes away or grows in size. Follow-up care Follow up with your healthcare provider, or as advised. When to seek medical advice Call your healthcare provider right away if any of these occur: Pain worsens or fails to get better with home treatment Fever of 100.4 F (38 C) or higher (or other fever amount directed by your healthcare provider) Nausea and vomiting Weakness, dizziness, or fainting Abnormal vaginal bleeding [id number] [employer] [place] [address], [place] [address]. All rights reserved. This information is not intended as a substitute for professional medical care. Always follow your healthcare professional's instructions. 03/28/2022 03:20:32 Abdominal Pain Abdominal Pain Abdominal pain is pain in the stomach or belly area. Everyone has this pain from time to time. In many cases it goes away on its own. But abdominal pain can sometimes be due to a serious problem, such as appendicitis. So it s important to know when to get help. Causes of abdominal pain There are many possible causes of abdominal pain. Common causes in adults include: Constipation, diarrhea, or gas Stomach acid flowing back up into the esophagus (acid reflux or heartburn) Severe acid reflux, called GERD (gastroesophageal reflux disease) A sore in the lining of the stomach or small intestine (peptic ulcer) Inflammation of the gallbladder, liver, or pancreas Gallstones or kidney stones Appendicitis Intestinal blockage An internal organ pushing through a muscle or other tissue (hernia) Urinary tract infections In women, menstrual cramps, fibroids, ovarian cysts, pelvic inflammatory disease, or endometriosis Inflammation or infection of the intestines, including Crohn's disease and ulcerative colitis Irritable bowel syndrome Diagnosing the cause of abdominal pain Your healthcare provider will give you a physical exam help find the cause of your pain. If needed, you will have tests. Belly pain has many possible causes. So it can be hard to find the reason for your pain. Giving details about your pain can help. Tell your provider where and when you feel the pain, and what makes it better or worse. Also let your provider know if you have other symptoms such as: Fever Tiredness Upset stomach (nausea) Vomiting Changes in bathroom habits Blood in the stool or black, tarry stool Weight loss that you can't explain (involuntary weight loss?) Also report any family history of stomach or intestinal problems, or cancers. Tell your provider about all your alcohol use and drug use. Tell your provider about all medicines you use, including herbs, vitamins, and supplements. Treating abdominal pain Some causes of pain need emergency medical treatment right away. These include appendicitis or a bowel blockage. Other problems can be treated with rest, fluids, or medicines. Your healthcare provider can give you specific instructions for treatment or self-care based on what is causing your pain. If you have vomiting or diarrhea, sip water or other clear fluids. When you are ready to eat solid foods again, start with small amounts of bzdt-lh-anrmja, low-fat foods. These include apple sauce, toast, or crackers. When to get medical care Call 911 or go to the hospital right away if you: Can t pass stool and are vomiting Are vomiting blood or have bloody diarrhea or black, tarry diarrhea Have chest, neck, or shoulder pain Feel like you might pass out Have pain in your shoulder blades with nausea Have sudden, severe belly pain Have new, severe pain unlike any you have felt before Have a belly that is rigid, hard, and hurts to touch Call your healthcare provider if you have: Pain for more than 5 days Bloating for more than 2 days Diarrhea for more than 5 days A fever of 100.4 F (38 C) or higher, or as directed by your healthcare provider Pain that gets worse Weight loss for no reason Continued lack of appetite Blood in your stool How to prevent abdominal pain Here are some tips to help prevent abdominal pain: Eat smaller amounts of food at each meal. Don't eat greasy, fried, or other high-fat foods. Don't eat foods that give you gas. Exercise regularly. Drink plenty of fluids. To help prevent GERD symptoms: Quit smoking. Reduce alcohol and foods that increase stomach acid. Don't use aspirin or amts-trh-kfgwzeq pain and fever medicines, if possible. This includes nonsteroidal anti-inflammatory drugs (NSAIDs). Lose excess weight. Finish eating at least 2 hours before you go to bed or lie down. Raise the head of your bed. [id number] [employer] [address] [place] [address], [place] [address]. All rights reserved. This information is not intended as a substitute for professional medical care. Always follow your healthcare professional's instructions. Follow Up Care 03/27/2022 22:33:39 With:FERNANDO PEDERSEN DO Address: [address] [place] [address]- When:2-4 days [facility] 03-17-2022 Miscellaneous Notes Patient only needs US breast now per tech, disregard. Thank you. Patient needs diagnostic mammogram orders placed, thank you! documented in this encounter [facility] 02-17-2022 Miscellaneous Notes 2 nd attempt spoke with Mother Caity and she will have patient call to schedule. 1st attempt left message to return call to schedule est care physical with Dr Pedersen or provider with her team as it has been approved okelena is on Mothers chart [phone] Have patient establish care appointment with myself or BEULAH Lovell. Please assist. Jennifer Gutierrez APRN.CNP See message and advise. Okay with taking on new pt. Dyan Simmons Ma documented in this encounter [facility] Evaluation + Plan note No data available for this section [facility] Diagnosis Change in bowel habits- Primary Other symptoms involving digestive system Blood in stool Generalized abdominal pain Abdominal pain, generalized Post-operative nausea and vomiting Nausea with vomiting [facility] Diagnosis Arthralgia, unspecified joint- Primary Encounter for immunization Need for other specified prophylactic vaccination against single bacterial disease Obesity, Class I, BMI 30-34.9 Obesity, unspecified Trigeminal neuralgia [facility] Diagnosis Screening for colon cancer Special screening for malignant neoplasms, colon External hemorrhoid External hemorrhoids without mention of complication Family history of colonic polyps [facility] Diagnosis Abdominal pain, unspecified abdominal location- Primary Blood in stool Change in bowel habits Other symptoms involving digestive system Post-operative nausea and vomiting Nausea with vomiting [facility] Diagnosis Positive sm/SENIOR MEDICAL DIRECTOR antibody- Primary Arthralgia, unspecified joint Muscle pain Mylagia and myositis, unspecified documented in this encounter [facility] note* Diagnosis Arthralgia, unspecified joint Positive sm/SENIOR MEDICAL DIRECTOR antibody documented in this encounter [facility] note* Diagnosis Abnormal x-ray- Primary Other nonspecific (abnormal) findings on radiological and other examinations of body structure Abnormal finding on chest xray Other nonspecific abnormal finding of lung field documented in this encounter [facility] note* Diagnosis Abnormal finding on chest xray- Primary Other nonspecific abnormal finding of lung field Generalized pain documented in this encounter [facility] note* Diagnosis Lung nodules- Primary Other nonspecific abnormal finding of lung field SOB (shortness of breath) Shortness of breath Allergic rhinitis, unspecified seasonality, unspecified trigger Chest tightness Other chest pain MARIIA on CPAP Obstructive sleep apnea (adult) (pediatric) documented in this encounter [facility] note* Diagnosis Arthralgia, unspecified joint- Primary Trigeminal neuralgia History of Yañez's palsy Personal history of other disorders of nervous system and sense organs Fatigue, unspecified type Seasonal allergies Allergic rhinitis, cause unspecified Epigastric burning sensation Abdominal pain, epigastric Bilateral lower abdominal pain Abdominal pain, right lower quadrant documented in this encounter [facility] note* Diagnosis Pain in unspecified joint documented in this encounter [facility] note* Diagnosis Iron deficiency anemia, unspecified iron deficiency anemia type- Primary Vitamin D deficiency Unspecified vitamin D deficiency documented in this encounter [facility] note* Diagnosis SOB (shortness of breath) Shortness of breath documented in this encounter [facility] note* Diagnosis SOB (shortness of breath) Shortness of breath documented in this encounter [facility] note* Diagnosis Allergic rhinitis, unspecified seasonality, unspecified trigger- Primary Mild persistent asthma without complication Unspecified asthma Lung nodules Other nonspecific abnormal finding of lung field documented in this encounter [facility] note* Diagnosis 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 [facility] Diagnosis Abnormal finding on chest xray Other nonspecific abnormal finding of lung field documented in this encounter [facility] note* Diagnosis Foot pain, left- Primary Pain in limb Bilateral hip pain Pain in joint, pelvic region and thigh Burning sensation of feet Disturbance of skin sensation documented in this encounter [facility] note* Diagnosis Lung nodules Other nonspecific abnormal finding of lung field [facility]* Diagnosis Mild persistent asthma without complication- Primary Unspecified asthma Allergic rhinitis, unspecified seasonality, unspecified trigger Lung nodules Other nonspecific abnormal finding of lung field MARIIA on CPAP Obstructive sleep apnea (adult) (pediatric) documented in this encounter [facility] note* Diagnosis Plantar fasciitis- Primary Plantar fascial fibromatosis Numbness and tingling of both feet documented in this encounter [facility] note* Diagnosis Bilateral hip pain- Primary Pain in joint, pelvic region and thigh Foot pain, left Pain in limb Burning sensation of feet Disturbance of skin sensation documented in this encounter [facility] note* Diagnosis 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 documented in this encounter [facility] note No data available for this section [facility] Reason for referral (narrative)* Outpatient Procedure (Routine) - Authorized Specialty Diagnoses / Procedures Referred By Elina sheriff Referred To Contact Diagnoses Abdominal pain, unspecified abdominal location Blood in stool Change in bowel habits Post-operative nausea and vomiting Procedures COLONOSCOPY DIAGNOSTIC COLONOSCOPY FLX DX W/COLLJ SPEC WHEN PFRMD Ann-Marie Vazquez PA-C [address] [place] [address] [address] Referral ID Status Reason Start Date Expiration Date V isits Requested Visits Authorized [id number] Authorized 06/10/2022 11/13/2022 1 1 * Outpatient Procedure (Routine) - Authorized Specialty Diagnoses / Procedures Referred By Contac t Referred To Contact Diagnoses Abdominal pain, unspecified abdominal location Blood in stool Change in bowel habits Post-operative nausea and vomiting Procedures EGD DIAGNOSTIC ESOPHAGOGASTRODUODENOSCOPY TRANSORAL DIAGNOSTIC Paola Greene MD [address] [place] [address] [facility] [address] [place] [address] Referral ID Status Reason Start Date Expiration Date V isits Requested Visits Authorized [id number] Authorized 06/10/2022 11/13/2022 [address] [facility] Diagnostic Procedure Only (Routine) - Pending Review Specialty Diagnoses / Procedures Referred By Elina sheriff Referred To Contact [facility] Diagnoses Encounter for screening mammogram for breast cancer Procedures GIORGI SCREENING W JAMAL SCREENING DIGITAL BREAST TOMOSYNTHESIS BI SCREENING MAMMOGRAPHY BI 2-VIEW BREAST INC CAD Fernando Pedersen DO [address] [place] [address] [facility] [address] [place] [address] Referral ID Status Reason Start Date Expiration Date Visits Requested Visits Authorized [id number] Pending Review Auto-Generat ed Referral 3 09/22/2024 [address] [facility] Summary Purpose Family History No Family History Records Found Mother Name Dates Details Family history of malignant neoplasm of breast(V16.3, Z80.3) Status:Active Father Name Dates Details Family history of hypertensi on(V17.49, Z82.49) Status:Active Family history of hyperlipid emia(V18.19, Z83.438) Status:Active Family history of diabetes m ellitus(V18.0, Z83.3) Status:Active Advance Directives No Advanced Directives Records FoundNo Advanced Directives Records FoundNo Advanced Directives Records FoundNo Advanced Directives Records FoundNo Advanced Directives Records FoundNo Advanced Directives Records Found Reason for Referral Specialty Diagnoses / Procedures Referred By Elina sheriff Referred To Contact Diagnoses MARIIA (obstructive sleep apnea) Procedures CONSULT TO SLEEP MEDICINE - ADULT OFFICE/OUTPATIENT [facility] 60-74 MINUTES Zan Fernandes MD [address] [place] [address] Referral ID Status Reason Start Date Expiration Date Visits Requested Visits Authorized [id number] Pending Review PCP Requested Referral 10/18/2023 10/17/2024 1 1 Specialty Diagnoses / Procedures Referred By Contac t Referred To Contact Podiatry Diagnoses Foot pain, left Bilateral hip pain Burning sensation of feet Procedures CONSULT TO PODIATRY OFFICE/OUTPATIENT [facility] MDM 60-74 MINUTES Destini Mi APRN.TREKKING GUIDE [address] [place] [address] Referral ID Status Reason Start Date Expiration Date Visits Requested Visits Authorized [id number] Pending Review PCP Requested Referral 09/21/2023 09/20/2024 1 1 Specialty Diagnoses / Procedures Referred By Contac t Referred To Contact [facility] Diagnoses Foot pain, left Bilateral hip pain Burning sensation of feet Procedures CONSULT TO PHYSICAL THERAPY PHYSICAL THERAPY EVALUATION HIGH COMPLEX 45 MINS Destini Mi APRN.TREKKING GUIDE [address] [place] [address] [facility] [place] [address] [place] [address] Referral ID Status Reason Start Date Expiration Date Visits Requested Visits Authorized [id number] Pending Review Auto-Generat ed Referral 09/21/2023 09/20/2024 1 1 Specialty Diagnoses / Procedures Referred By Contac t Referred To Contact XR IMAGING Diagnoses Foot pain, left Bilateral hip pain Burning sensation of feet Procedures XR LUMBAR GENERAL 3V AP/LAT/L5-S1 RADEX SPINE LUMBOSACRAL 2/3 VIEWS Destini Mi APRN.TREKKING GUIDE [address] [place] [address] [place] [address] Referral ID Status Reason Start Date Expiration Date V isits Requested Visits Authorized [id number] Closed Auto-Generate d Referral 09/21/2023 10/20/2024 1 1 Specialty Diagnoses / Procedures Referred By Contac t Referred To Contact XR IMAGING Diagnoses Foot pain, left Bilateral hip pain Burning sensation of feet Procedures XR HIP BILATERAL 5V PEL/AP/LAT EACH HIP RADEX HIPS BILATERAL WITH PELVIS MINIMUM 5 VIEWS Destini Mi, COMMUNITY SERVICE ORGANIZATION DIRECTOR.TREKKING GUIDE [address] [place] [address] [place] [address] Referral ID Status Reason Start Date Expiration Date V isits Requested Visits Authorized [id number] Closed Auto-Generate d Referral 09/21/2023 10/20/2024 1 1 Specialty Diagnoses / Procedures Referred By Contac t Referred To Contact XR IMAGING Diagnoses Foot pain, left Bilateral hip pain Burning sensation of feet Procedures XR SACROILIAC JOINTS 2V AP PELVIS/FERGUESON RADIOLOGIC EXAMINATION SACROILIAC JNTS <3 VIEWS Destini Mi, COMMUNITY SERVICE ORGANIZATION DIRECTOR.TREKKING GUIDE [address] [place] [address] [place] [address] Referral ID Status Reason Start Date Expiration Date V isits Requested Visits Authorized [id number] Closed Auto-Generate d Referral 09/21/2023 10/20/2024 1 1 Specialty Diagnoses / Procedures Referred By Contac t Referred To Contact XR IMAGING Diagnoses Foot pain, left Bilateral hip pain Burning sensation of feet Procedures XR FOOT GENERAL 3V AP/LAT/OBL BILATERAL RADEX FOOT COMPLETE MINIMUM 3 VIEWS Destini Mi, COMMUNITY SERVICE ORGANIZATION DIRECTOR.TREKKING GUIDE [address] [place] [address] [place] [address] Referral ID Status Reason Start Date Expiration Date V isits Requested Visits Authorized [id number] Closed Auto-Generate d Referral 09/21/2023 10/20/2024 1 1 Specialty Diagnoses / Procedures Referred By Contac t Referred To Contact Diagnoses Trigeminal neuralgia of left side of face Ivan Alexandre MD [address] [place] [address] [place] [address] Referral ID Status Reason Start Date Expiration Date V isits Requested Visits Authorized [id number] Pending Review 06/09/2023 12/06/2023 1 1 Specialty Diagnoses / Procedures Referred By Contac t Referred To Contact Diagnoses 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 Paty Albert, COMMUNITY SERVICE ORGANIZATION DIRECTOR - TREKKING GUIDE [address] [place] [address] Referral ID Status Reason Start Date Expiration Date V isits Requested Visits Authorized [id number] Pending Review 03/10/2023 09/06/2023 1 1 Referral ID Status Reason Start Date Expiration Date V isits Requested Visits Authorized [id number] Pending Review 03/10/2023 09/06/2023 1 1 Specialty Diagnoses / Procedures Referred By Contac t Referred To Contact Allergy Diagnoses Seasonal allergies Procedures CONSULT TO ALLERGY/IMMUNOLOGY Destini Mi COMMUNITY SERVICE ORGANIZATION DIRECTOR.TREKKING GUIDE [address] [place] [address] Referral ID Status Reason Start Date Expiration Date Visits Requested Visits Authorized [id number] Ref Not Required PCP Requested Referral 10/20/2022 10/20/2023 1 1 Specialty Diagnoses / Procedures Referred By Contac t Referred To Contact CT IMAGING Diagnoses Lung nodules Procedures CT CHEST WO IVCON DIAGNOSTIC COMPUTED TOMOGRAPHY THORAX W/O CNTRST Zan Fernandes MD [address] [place] [address] Ct Imaging Referral ID Status Reason Start Date Expiration Date Visits Requested Visits Authorized [id number] Authorized Auto-Generat ed Referral 3 11/12/2023 1 1 Specialty Diagnoses / Procedures Referred By Contac t Referred To Contact [facility] Diagnoses SOB (shortness of breath) Procedures NITRIC OXIDE, EXHALED NITRIC OXIDE GAS DETERMINATION Zan Fernandes MD [address] [place] [address] [facility] [place] [address] [place] [address] Referral ID Status Reason Start Date Expiration Date Visits Requested Visits Authorized [id number] Authorized Auto-Generat ed Referral 2 11/13/2022 1 1 Specialty Diagnoses / Procedures Referred By Contac t Referred To Contact [facility] Diagnoses SOB (shortness of breath) Procedures LUNG DIFFUSION CAPACITY (DLCO) DIFFUSING CAPACITY Zan Fernandes MD [address] [place] [address] [facility] [place] [address] [place] [id number] Referral ID Status Reason Start Date Expiration Date Visits Requested Visits Authorized [id number] Authorized Auto-Generat ed Referral 2 11/13/2022 1 1 Specialty Diagnoses / Procedures Referred By Contac t Referred To Contact [facility] Diagnoses SOB (shortness of breath) Procedures SPIROMETRY - BASELINE AND POST DILATOR BRNCDILAT RSPSE SPMTRY PRE&POST-BRNCDILAT ADMN Zan Fernandes MD [address] [place] [address] [facility] [place] [address] [place] [id number] Referral ID Status Reason Start Date Expiration Date Visits Requested Visits Authorized [id number] Authorized Auto-Generat ed Referral 2 11/13/2022 1 1 Specialty Diagnoses / Procedures Referred By Contac t Referred To Contact [facility] Diagnoses Generalized pain Procedures CONSULT TO PHYSICAL THERAPY PHYSICAL THERAPY EVALUATION HIGH COMPLEX 45 MINS Jono Wallace APRN.TREKKING GUIDE [address] [address] [facility] [address] [address] Referral ID Status Reason Start Date Expiration Date Visits Requested Visits Authorized [id number] Pending Review Auto-Generat ed Referral 09/17/2022 09/17/2023 1 1 Specialty Diagnoses / Procedures Referred By Contac t Referred To Contact CT IMAGING Diagnoses Abnormal finding on chest xray Procedures CT CHEST WO IVCON DIAGNOSTIC COMPUTED TOMOGRAPHY THORAX W/O CNTRST Jono Wallace APRN.TREKKING GUIDE [address] [address] [address] Imaging Referral ID Status Reason Start Date Expiration Date Visits Requested Visits Authorized [id number] Authorized Auto-Generat ed Referral 09/15/2022 10/15/2023 1 1 Specialty Diagnoses / Procedures Referred By Contac t Referred To Contact XR IMAGING Diagnoses Arthralgia, unspecified joint Positive sm/SENIOR MEDICAL DIRECTOR antibody Procedures XR FOOT SURVEY ARTHRITIS 1V AP BILATERAL JOINT SURVEY SINGLE VIEW 2 OR MORE JOINTS Jono Wallace APRN.TREKKING GUIDE [address] [address] [facility] Referral ID Status Reason Start Date Expiration Date Visits Requested Visits Authorized [id number] Waiting for Response Auto-Generat ed Referral 10/01/2023 1 1 Specialty Diagnoses / Procedures Referred By Contac t Referred To Contact XR IMAGING Diagnoses Arthralgia, unspecified joint Positive sm/SENIOR MEDICAL DIRECTOR antibody Procedures XR HAND/WRIST SURVEY ARTHRITIS 1V PA BILATERAL JOINT SURVEY SINGLE VIEW 2 OR MORE JOINTS Jono Wallace APRN.TREKKING GUIDE [address] [address] [facility] Referral ID Status Reason Start Date Expiration Date V isits Requested Visits Authorized [id number] Closed Auto-Generate d Referral 09/01/2022 10/01/2023 1 1 Specialty Diagnoses / Procedures Referred By Contac t Referred To Contact General Surgery Diagnoses Screening for colon cancer Family history of colonic polyps Procedures CONSULT TO GENERAL SURGERY OFFICE/OUTPATIENT [facility] 60-74 MINUTES Destini Mi, SARAH.TREKKING GUIDE [address] [place] [address] Referral ID Status Reason Start Date Expiration Date Visits Requested Visits Authorized [id number] Pending Review PCP Requested Referral 04/07/2022 04/07/2023 1 1 Medications Administered Section Inactive Administered Medications - up to 3 most recent administrations Medication Order MAR Action Action Date Dose Rate Site triamcinolone acetonide 40 mg injection (KeNALog 40) 40 mg, INTRAMUSCULAR, ONCE, 1 dose, On Tue10/20/22 at 1030 Given 10/20/2022 10:28 AM EST 40 mg Buttocks, Left Additional Source Comments INFORMATION SOURCE (unrecogn ized section and content) DATE CREATED AUTHOR AUTHOR'S ORGANIZ ATION 04/07/2019 [employer] DATE CREATED AUTHOR AUTHOR'S ORGANIZ ATION 07/06/2019 [facility] DATE CREATED AUTHOR AUTHOR'S ORGANIZ ATION 07/19/2022 [facility] DATE CREATED AUTHOR AUTHOR'S ORGANIZ ATION 12/01/2023 [facility] DATE CREATED AUTHOR AUTHOR'S ORGANIZ ATION 01/22/2024 [facility] Source Comments (unrecognize d section and content) In the event this informatio n is protected by the Federal Confidentiality of Alcohol and Drug Abuse Patient Records regulations: The Federal rules restrict any use of the information to criminally investigate or prosecute any alcohol or drug abuse patient.[facility] the event this information is protected by the Federal Confidentiality of Alcohol and Drug Abuse Patient Records regulations: The Federal rules restrict any use of the information to criminally investigate or prosecute any alcohol or drug abuse patient.[facility] the event this information is protected by the Federal Confidentiality of Alcohol and Drug Abuse Patient Records regulations: The Federal rules restrict any use of the information to criminally investigate or prosecute any alcohol or drug abuse patient.[facility] the event this information is protected by the Federal Confidentiality of Alcohol and Drug Abuse Patient Records regulations: The Federal rules restrict any use of the information to criminally investigate or prosecute any alcohol or drug abuse patient.[facility] HospitalIn the event this information is protected by the Federal Confidentiality of Alcohol and Drug Abuse Patient Records regulations: The Federal rules restrict any use of the information to criminally investigate or prosecute any alcohol or drug abuse patient.[facility] HospitalIn the event this information is protected by the Federal Confidentiality of Alcohol and Drug Abuse Patient Records regulations: The Federal rules restrict any use of the information to criminally investigate or prosecute any alcohol or drug abuse patient.[facility] Hospital[facility] the event this information is protected by the Federal Confidentiality of Alcohol and Drug Abuse Patient Records regulations: The Federal rules restrict any use of the information to criminally investigate or prosecute any alcohol or drug abuse patient.[facility] HospitalIn the event this information is protected by the Federal Confidentiality of Alcohol and Drug Abuse Patient Records regulations: The Federal rules restrict any use of the information to criminally investigate or prosecute any alcohol or drug abuse patient.[facility] HospitalIn the event this information is protected by the Federal Confidentiality of Alcohol and Drug Abuse Patient Records regulations: The Federal rules restrict any use of the information to criminally investigate or prosecute any alcohol or drug abuse patient.[facility] HospitalIn the event this information is protected by the Federal Confidentiality of Alcohol and Drug Abuse Patient Records regulations: The Federal rules restrict any use of the information to criminally investigate or prosecute any alcohol or drug abuse patient.[facility] HospitalIn the event this information is protected by the Federal Confidentiality of Alcohol and Drug Abuse Patient Records regulations: The Federal rules restrict any use of the information to criminally investigate or prosecute any alcohol or drug abuse patient.[facility] HospitalIn the event this information is protected by the Federal Confidentiality of Alcohol and Drug Abuse Patient Records regulations: The Federal rules restrict any use of the information to criminally investigate or prosecute any alcohol or drug abuse patient.[facility] HospitalIn the event this information is protected by the Federal Confidentiality of Alcohol and Drug Abuse Patient Records regulations: The Federal rules restrict any use of the information to criminally investigate or prosecute any alcohol or drug abuse patient.[facility] HospitalIn the event this information is protected by the Federal Confidentiality of Alcohol and Drug Abuse Patient Records regulations: The Federal rules restrict any use of the information to criminally investigate or prosecute any alcohol or drug abuse patient.[facility] HospitalIn the event this information is protected by the Federal Confidentiality of Alcohol and Drug Abuse Patient Records regulations: The Federal rules restrict any use of the information to criminally investigate or prosecute any alcohol or drug abuse patient.[facility] HospitalIn the event this information is protected by the Federal Confidentiality of Alcohol and Drug Abuse Patient Records regulations: The Federal rules restrict any use of the information to criminally investigate or prosecute any alcohol or drug abuse patient.[facility] HospitalIn the event this information is protected by the Federal Confidentiality of Alcohol and Drug Abuse Patient Records regulations: The Federal rules restrict any use of the information to criminally investigate or prosecute any alcohol or drug abuse patient.[facility] HospitalIn the event this information is protected by the Federal Confidentiality of Alcohol and Drug Abuse Patient Records regulations: The Federal rules restrict any use of the information to criminally investigate or prosecute any alcohol or drug abuse patient.[facility] HospitalIn the event this information is protected by the Federal Confidentiality of Alcohol and Drug Abuse Patient Records regulations: The Federal rules restrict any use of the information to criminally investigate or prosecute any alcohol or drug abuse patient.[facility] HospitalIn the event this information is protected by the Federal Confidentiality of Alcohol and Drug Abuse Patient Records regulations: The Federal rules restrict any use of the information to criminally investigate or prosecute any alcohol or drug abuse patient.[facility] HospitalIn the event this information is protected by the Federal Confidentiality of Alcohol and Drug Abuse Patient Records regulations: The Federal rules restrict any use of the information to criminally investigate or prosecute any alcohol or drug abuse patient.[facility] HospitalIn the event this information is protected by the Federal Confidentiality of Alcohol and Drug Abuse Patient Records regulations: The Federal rules restrict any use of the information to criminally investigate or prosecute any alcohol or drug abuse patient.[facility] HospitalIn the event this information is protected by the Federal Confidentiality of Alcohol and Drug Abuse Patient Records regulations: The Federal rules restrict any use of the information to criminally investigate or prosecute any alcohol or drug abuse patient.[facility] HospitalIn the event this information is protected by the Federal Confidentiality of Alcohol and Drug Abuse Patient Records regulations: The Federal rules restrict any use of the information to criminally investigate or prosecute any alcohol or drug abuse patient.[facility] HospitalIn the event this information is protected by the Federal Confidentiality of Alcohol and Drug Abuse Patient Records regulations: The Federal rules restrict any use of the information to criminally investigate or prosecute any alcohol or drug abuse patient.[facility] HospitalIn the event this information is protected by the Federal Confidentiality of Alcohol and Drug Abuse Patient Records regulations: The Federal rules restrict any use of the information to criminally investigate or prosecute any alcohol or drug abuse patient.[facility] HospitalIn the event this information is protected by the Federal Confidentiality of Alcohol and Drug Abuse Patient Records regulations: The Federal rules restrict any use of the information to criminally investigate or prosecute any alcohol or drug abuse patient.[facility] HospitalIn the event this information is protected by the Federal Confidentiality of Alcohol and Drug Abuse Patient Records regulations: The Federal rules restrict any use of the information to criminally investigate or prosecute any alcohol or drug abuse patient.[facility] HospitalIn the event this information is protected by the Federal Confidentiality of Alcohol and Drug Abuse Patient Records regulations: The Federal rules restrict any use of the information to criminally investigate or prosecute any alcohol or drug abuse patient.[facility] HospitalIn the event this information is protected by the Federal Confidentiality of Alcohol and Drug Abuse Patient Records regulations: The Federal rules restrict any use of the information to criminally investigate or prosecute any alcohol or drug abuse patient.[facility] HospitalIn the event this information is protected by the Federal Confidentiality of Alcohol and Drug Abuse Patient Records regulations: The Federal rules restrict any use of the information to criminally investigate or prosecute any alcohol or drug abuse patient.[facility] HospitalIn the event this information is protected by the Federal Confidentiality of Alcohol and Drug Abuse Patient Records regulations: The Federal rules restrict any use of the information to criminally investigate or prosecute any alcohol or drug abuse patient.[facility] HospitalIn the event this information is protected by the Federal Confidentiality of Alcohol and Drug Abuse Patient Records regulations: The Federal rules restrict any use of the information to criminally investigate or prosecute any alcohol or drug abuse patient.[facility] Care Teams (unrecognized sec tion and content) Poem Writer Relationship Specialty Start Date End Date Fernando Pedersen DO [address] [place] [address] PCP - General Family Practice 11/28/13 Krishan Guevara [address] [place], [place] [address] Referring Ent - Otolaryngology 06/03/20 Poem Writer Relationship Specialty Start Date End Date Fernando Pedersen DO [address] [place] [address] PCP - General Family Practice 11/28/13 Krishan Guevara [address] [place] [address] Referring Ent - Otolaryngology 06/03/20 Poem Writer Relationship Specialty Start Date End Date Fernando Pedersen, DO [address] [place] [address] PCP - General Family Practice 11/28/13 Krishan Guevara [address] [place] [address] Referring Ent - Otolaryngology 06/03/20 Poem Writer Relationship Specialty Start Date End Date Fernando Pedersen, DO [address] [place] [address] PCP - General Family Practice 11/28/13 Krishan Guevara [address] [place] [address] Referring Ent - Otolaryngology 06/03/20 Poem Writer Relationship Specialty Start Date End Date Fernando Pedersen, DO [address] [place] [address] PCP - General Family Practice 11/28/13 Krishan Guevara [address] [place] [address] Referring Ent - Otolaryngology 06/03/20 Poem Writer Relationship Specialty Start Date End Date Fernando Pedersen DO [address] [place] [address] PCP - General Family Practice 11/28/13 Krishan Guevara [address] [place] [address] Referring Ent - Otolaryngology 06/03/20 Poem Writer Relationship Specialty Start Date End Date Fernando Pedersen, DO [address] [place] [address] PCP - General Family Medicine 11/28/13 Krishan Guevara [address] [place] [address] Referring Ent - Otolaryngology 06/03/20 Poem Writer Relationship Specialty Start Date End Date Fernando Pedersen, DO [address] [place] [address] PCP - General Family Medicine 11/28/13 Krishan Guevara [address] [place] [address] Referring Ent - Otolaryngology 06/03/20 Poem Writer Relationship Specialty Start Date End Date Fernando Pedersen, DO [address] [place] [address] PCP - General Family Medicine 11/28/13 Krishan Guevara [address] [place] [address] Referring Ent - Otolaryngology 06/03/20 Poem Writer Relationship Specialty Start Date End Date Fernando Pedersen, DO [address] [place] [address] PCP - General Family Medicine 11/28/13 Krishan Guevara [address] [place] [address] Referring Ent - Otolaryngology 06/03/20 Poem Writer Relationship Specialty Start Date End Date Fernando Pedersen DO [address] [place] [address] PCP - General Family Medicine 11/28/13 Krishan Guevara [address] [facility] [address] Referring Ent - Otolaryngology 06/03/20 Poem Writer Relationship Specialty Start Date End Date Fernando Pedersen, DO [address] [facility] [place] [address] PCP - General Family Medicine 11/28/13 Krishan Guevara [address] [facility] [place] [address] Referring Ent - Otolaryngology 06/03/20 Poem Writer Relationship Specialty Start Date End Date Fernando Pedersen DO [address] [facility] [place] [address] PCP - General Family Medicine 11/28/13 Krishna Guevara [address] [facility] [place] [address] Referring Ent - Otolaryngology 06/03/20 Poem Writer Relationship Specialty Start Date End Date Fernando Pedersen DO [address] [place] [address] PCP - General Family Medicine 11/28/13 Krishan Guevara [address] [facility] [place] [address] Referring Ent - Otolaryngology 06/03/20 Poem Writer Relationship Specialty Start Date End Date Fernando Pedersen DO [address] [place] [address] PCP - General Family Medicine 11/28/13 Krishan Guevara [address] [facility] [place] [address] Referring Ent - Otolaryngology 06/03/20 Poem Writer Relationship Specialty Start Date End Date Fernando Pedersen, DO [address] [place] [address] PCP - General Family Medicine 11/28/13 Krishan Guevara [address] [place] [address] Referring Ent - Otolaryngology 06/03/20 Poem Writer Relationship Specialty Start Date End Date Fernando Pedersen, DO [address] [place] [address] PCP - General Family Medicine 11/28/13 Krishan Guevara [address] [facility] [place] [address] Referring Ent - Otolaryngology 06/03/20 Poem Writer Relationship Specialty Start Date End Date Fernando Pedersen, DO [address] [place] [address] PCP - General Family Medicine 11/28/13 Krishan Guevara [address] [facility] [address] Referring Ent - Otolaryngology 06/03/20 Poem Writer Relationship Specialty Start Date End Date Fernando Pedersen, DO [address] [place] [address] PCP - General Family Medicine 11/28/13 Krishan Guevara [address] [place] [address] Referring Ent - Otolaryngology 06/03/20 Poem Writer Relationship Specialty Start Date End Date Fernando Pedersen, DO [address] [place] [address] PCP - General Family Medicine 11/28/13 Krishan Guevara [address] [place] [address] Referring Ent - Otolaryngology 06/03/20 Poem Writer Relationship Specialty Start Date End Date Fernando Pedersen DO [address] [place] [address] PCP - General Family Medicine 11/28/13 Krishan Guevara [address] [place] [address] Referring Ent - Otolaryngology 06/03/20 Poem Writer Relationship Specialty Start Date End Date Fernando Pedersen DO [address] [place] [address] PCP - General Family Medicine 11/28/13 Krishan Guevara [address] [place] [address] Referring Ent - Otolaryngology 06/03/20 Poem Writer Relationship Specialty Start Date End Date Fernando Pedersen DO [address] [place] [address] PCP - General Family Medicine 11/28/13 Krishan Guevara [address] [place] [address] Referring Ent - Otolaryngology 06/03/20 Poem Writer Relationship Specialty Start Date End Date eFrnando Pedersen DO [address] [place] [address] PCP - General Family Medicine 11/28/13 Krishan Guevara [address] [place] [address] Referring Ent - Otolaryngology 06/03/20 Poem Writer Relationship Specialty Start Date End Date Fernando Pedersen [address] [facility] [place] [address] PCP - General 08/23/16 Poem Writer Relationship Specialty Start Date End Date Fernando Pedersen [address] [facility] [place] [address] PCP - General 08/23/16 Poem Writer Relationship Specialty Start Date End Date Fernando Pedersen [address] [facility] [place] [address] PCP - General 08/23/16 Poem Writer Relationship Specialty Start Date End Date Fernando Pedersen [address] [facility] [place] [address] PCP - General 08/23/16 Poem Writer Relationship Specialty Start Date End Date Fernando Pedersen [address] [place] [address] PCP - General 08/23/16 Poem Writer Relationship Specialty Start Date End Date Fernando Pedersen DO [address] [facility] [place] [address] PCP - General Family Medicine 11/28/13 Krishan Guevara [address] [place] [address] Referring Ent - Otolaryngology 06/03/20 Poem Writer Relationship Specialty Start Date End Date Fernando Pedersen [address] [place] [address] PCP - General 08/23/16 Poem Writer Relationship Specialty Start Date End Date Fernando Pedersen DO [address] [place] [address] PCP - General Family Medicine 11/28/13 Krishan Guevara [address] [place], [place] [address]481 Referring Ent - Otolaryngology 06/03/20 Poem Writer Relationship Specialty Start Date End Date Fernando Pedersen DO [address] [place], [place] [id number] PCP - General Family Medicine 11/28/13 Krishan Guevara [address] [place], [place] [address] Referring Ent - Otolaryngology 06/03/20 Poem Writer Relationship Specialty Start Date End Date Fernando Pedersen DO [address] [place] [address] PCP - General Family Medicine 11/28/13 Krishan Guevara [address] [place], [place] 260870 [phone] Referring Ent - Otolaryngology 06/03/20 Poem Writer Relationship Specialty Start Date End Date Fernando Pedersen DO [address] [place] [address] PCP - General Family Medicine 11/28/13 Krishan Guevara [address] [place], [place] 144288 [phone] Referring Ent - Otolaryngology 06/03/20 Poem Writer Relationship Specialty Start Date End Date Fernando Pedersen DO [address] [place] [address] PCP - General Family Medicine 11/28/13 Krishan Guevara [address] [place], [place] [address] Referring Ent - Otolaryngology 06/03/20 Poem Writer Relationship Specialty Start Date End Date Fernando Pedersen DO [address] [place], [place] [address]381 PCP - General Family Medicine 11/28/13 Krishan Guevara [address] [place], [place] [address] Referring Ent - Otolaryngology 06/03/20 Poem Writer Relationship Specialty Start Date End Date Fernando Pedersen [address] [place], [place] [address] PCP - General 08/23/16 Reason for Visit (unrecogniz ed section and content) Specialty Diagnoses / Procedures Referred By Contac t Referred To Contact Diagnoses 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 Ivan Alexandre MD [address] [place] [address] [place] [address] Referral ID Status Reason Start Date Expiration Date V isits Requested Visits Authorized [id number] Pending Review 12/16/2023 12/10/2024 1 1 Reason Comments Positive FABY Follow up Specialty Diagnoses / Procedures Referred By Contac t Referred To Contact Rheumatology / INITIAL DEPT Diagnoses Arthralgia, unspecified joint Procedures CONSULT TO RHEUM/IMMUN DISEASE OFFICE/OUTPATIENT NEW HIGH MDM 60-74 MINUTES OFFICE/OUTPATIENT ESTABLISHED MOD MDM 30-39 MIN Jennifer Gutierrez APRN.TREKKING GUIDE [address] [place] [address] Initial Department Referral ID Status Reason Start Date Expiration Date V isits Requested Visits Authorized [id number] Closed PCP Requested Referral 09/01/2022 11/13/2022 1 1 Reason Comments Orders Reason Comments Colon Cancer screening Rectal Problem hemorrhoid Specialty Diagnoses / Procedures Referred By Contac t Referred To Contact Family Practice / FAMILY MEDICINE Diagnoses Health concerns-colon cancer Procedures 4C EST Fernando Pedersen, DO [address] [place] [address] Destini Mi APRN.TREKKING GUIDE [address] [place] [address] Referral ID Status Reason Start Date Expiration Date V isits Requested Visits Authorized [id number] Closed OON/Self Pay Override 03/31/2022 11/13/2022 1 1 Reason Comments Consult Colonoscopy & Hemorr hoid Specialty Diagnoses / Procedures Referred By Contac t Referred To Contact GENERAL SURGERY Diagnoses consult to general surgery Procedures OFFICE/OUTPATIENT NEW MODERATE MDM 45-59 MINUTES screening for colon cancer Fernando Pedersen, DO [address] [place] [address] [facility] [address] [place] [address] Referral ID Status Reason Start Date Expiration Date V isits Requested Visits Authorized [id number] Closed OON/Self Pay Override 11/14/2021 11/13/2022 1 1 Reason Comments Arthritis Specialty Diagnoses / Procedures Referred By Contac t Referred To Contact Family Practice / FAMILY MEDICINE Diagnoses Joint pain joint pain Procedures OFFICE/OUTPATIENT ESTABLISHED MOD MDM 30-39 MIN 4C EST Fernando Pedersen, DO [address] [place] [address] Jennifer Gutierrez APRN.TREKKING GUIDE [address] [place] [address] Referral ID Status Reason Start Date Expiration Date Visits Re quested Visits Authorized [id number] Closed 06/28/2022 11/13/2022 1 1 Reason Comments Refill Request Reason Comments 06/14 colon/[facility] Reason Comments Joint Pain Specialty Diagnoses / Procedures Referred By Contac t Referred To Contact XR IMAGING Diagnoses Arthralgia, unspecified joint Positive sm/SENIOR MEDICAL DIRECTOR antibody Procedures XR FOOT SURVEY ARTHRITIS 1V AP BILATERAL JOINT SURVEY SINGLE VIEW 2 OR MORE JOINTS Jono Wallace COMMUNITY SERVICE ORGANIZATION DIRECTOR.TREKKING GUIDE [address] [place] [phone] Xr Imaging Referral ID Status Reason Start Date Expiration Date Visits Requested Visits Authorized [id number] Waiting for Response Auto-Generat ed Referral 2 10/01/2023 1 1 Reason Comments New Patient Nodule Specialty Diagnoses / Procedures Referred By Contfrederick t Referred To Contact Pulmonary and Critical Care Medicine / PULMONARY MEDICINE Diagnoses Abnormal findings on diagnostic imaging of other specified body structures Abnormal finding on chest xray [R93.89] MULTIPLE LUNG NODULES CONSULT PULMONARY Procedures OFFICE/OUTPATIENT NEW MODERATE MDM 45-59 MINUTES RI NEW LUNG NODULE Jono Wallace APRN.TREKKING GUIDE [address] [place] [phone] Zan Fernandes MD [address] [place] [address] Referral ID Status Reason Start Date Expiration Date Visits Re quested Visits Authorized [id number] Closed 10/13/2022 11/13/2022 1 1 Reason Comments Consult Reason Comments Joint Pain Muscle aches, fatigu e x 6months, recently saw Rheumatology. Specialty Diagnoses / Procedures Referred By Contac t Referred To Contact Family Medicine / FAMILY MEDICINE Diagnoses Feeling unwell Feel unwell Procedures OFFICE/OUTPATIENT ESTABLISHED MOD MDM 30-39 MIN 4C EST Self Jennifer Gutierrez, COMMUNITY SERVICE ORGANIZATION DIRECTOR.TREKKING GUIDE [address] [place] [address] Referral ID Status Reason Start Date Expiration Date Visits Re quested Visits Authorized [id number] Closed 10/18/2022 11/13/2022 1 1 Reason Comments Results Reason Comments Spirometry Specialty Diagnoses / Procedures Referred By Contac t Referred To Contact [facility] Diagnoses SOB (shortness of breath) Procedures SPIROMETRY - BASELINE AND POST DILATOR BRNCDILAT RSPSE SPMTRY PRE&POST-BRNCDILAT ADMN Zan Fernandes MD [address] [place] [address] [address] Referral ID Status Reason Start Date Expiration Date V isits Requested Visits Authorized [id number] Closed Auto-Generate d Referral 10/25/2022 11/13/2022 1 1 Specialty Diagnoses / Procedures Referred By Contac t Referred To Contact [facility] Diagnoses SOB (shortness of breath) Procedures LUNG DIFFUSION CAPACITY (DLCO) DIFFUSING CAPACITY Zan Fernandes MD [address] [place] [phone] Res[facility] [address] [address] Referral ID Status Reason Start Date Expiration Date V isits Requested Visits Authorized [id number] Closed Auto-Generate d Referral 10/25/2022 11/13/2022 1 1 Specialty Diagnoses / Procedures Referred By Contac t Referred To Contact [facility] Diagnoses SOB (shortness of breath) Procedures NITRIC OXIDE, EXHALED NITRIC OXIDE GAS DETERMINATION Zan Fernandes MD [address] [place] [phone] [address] Referral ID Status Reason Start Date Expiration Date V isits Requested Visits Authorized [id number] Closed Auto-Generate d Referral 10/25/2022 11/13/2022 1 1 Reason Onset Date Comments Refill Request 11/01/2022 Reason Comments Asthma Follow up Specialty Diagnoses / Procedures Referred By Contac t Referred To Contact Pulmonary Disease / PULMONARY MEDICINE Diagnoses Follow-up exam follow up Procedures OFFICE/OUTPATIENT ESTABLISHED MOD MDM 30-39 MIN RI EST PULM GENERAL Norbert Whitaker, COMMUNITY SERVICE ORGANIZATION DIRECTOR.TREKKING GUIDE [address] [address] Norbert Whitaker APRN.TREKKING GUIDE [address] [place] [address] Referral ID Status Reason Start Date Expiration Date V isits Requested Visits Authorized [id number] Denied Clearance Not Met - Admin/Chairm an/Director Advise to Postpone/Res chedule or Not Proceed 02/16/2023 05/17/2023 1 0 Reason Comments Medication Problem Reason Comments Procedure Trigeminal Neuralgia Specialty Diagnoses / Procedures Referred By Contac t Referred To Contact Diagnoses 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 Paty Albert APRN - TREKKING GUIDE [address] [place] [address] Referral ID Status Reason Start Date Expiration Date V isits Requested Visits Authorized [id number] Pending Review 03/10/2023 09/06/2023 1 1 Reason Onset Date Comments Med Refill 03/17/2023 Reason Onset Date Comments Med Refill 05/30/2023 Reason Comments Procedure Botox- trigeminal ne uralgia Specialty Diagnoses / Procedures Referred By Contac t Referred To Contact Diagnoses Trigeminal neuralgia of left side of face Ivan Alexandre MD [address] [place] [address] [place] [address] Referral ID Status Reason Start Date Expiration Date V isits Requested Visits Authorized [id number] Pending Review 06/09/2023 12/06/2023 1 1 Reason Onset Date Comments Med Refill 07/29/2023 Reason Comments Procedure Botox- Trigeminal Ne uralgia Referral ID Status Reason Start Date Expiration Date V isits Requested Visits Authorized [id number] Pending Review 09/15/2023 03/13/2024 [address] Specialty Diagnoses / Procedures Referred By Contac t Referred To Contact CT IMAGING Diagnoses Abnormal finding on chest xray Procedures CT CHEST WO IVCON DIAGNOSTIC COMPUTED TOMOGRAPHY THORAX W/O CNTRST Jono Wallace, SARAH.TREKKING GUIDE [address] [address] [place] [address] Referral ID Status Reason Start Date Expiration Date V isits Requested Visits Authorized [id number] Closed Auto-Generate d Referral 09/15/2022 10/15/2023 1 1 Reason Comments Hip Pain Tay hip pain & right heel pain/burning. Reason Comments Radiology CT Specialty Diagnoses / Procedures Referred By Contac t Referred To Contact CT IMAGING Diagnoses Lung nodules Procedures CT CHEST WO IVCON DIAGNOSTIC COMPUTED TOMOGRAPHY THORAX W/O CNTRST Zan Fernandes MD [address] [place] [address] [place] [address] Referral ID Status Reason Start Date Expiration Date V isits Requested Visits Authorized [id number] Closed Auto-Generate d Referral 10/13/2023 11/12/2023 1 1 Reason Comments Establish Care ct scan done Specialty Diagnoses / Procedures Referred By Contac t Referred To Contact Pulmonary and Critical Care Medicine / PULMONARY MEDICINE Diagnoses follow up Procedures [facility] PULM GENERAL Zan Fernandes MD [address] [place] [address] Zan Fernandes MD [address] [place] [address] Referral ID Status Reason Start Date Expiration Date V isits Requested Visits Authorized [id number] Pending Review 10/18/2023 01/16/2024 1 1 Reason Comments New Burning sensation in bilateral feet New Sharp pain in left h eelXray in EPIC Specialty Diagnoses / Procedures Referred By Contac t Referred To Contact Podiatry Diagnoses Foot pain, left Bilateral hip pain Burning sensation of feet Procedures CONSULT TO PODIATRY OFFICE/OUTPATIENT NEW HIGH MDM 60-74 MINUTES Destini Mi APRN.TREKKING GUIDE [address] [place] [phone] Referral ID Status Reason Start Date Expiration Date Visits Requested Visits Authorized [id number] Pending Review PCP Requested Referral 09/21/2023 09/20/2024 1 1 Reason Comments PT Eval Specialty Diagnoses / Procedures Referred By Contac t Referred To Contact [facility] Diagnoses Foot pain, left Bilateral hip pain Burning sensation of feet Procedures CONSULT TO PHYSICAL THERAPY PHYSICAL THERAPY EVALUATION HIGH COMPLEX 45 MINS Destini Mi APRN.TREKKING GUIDE [address] [place] [address] [facility] [address] [place] [address] Referral ID Status Reason Start Date Expiration Date Visits Requested Visits Authorized [id number] Authorized Auto-Generat ed Referral 11/14/2022 11/13/2023 99 99 FOR RECORDS PERTAINING TO PATIENTS WHO ARE OR HAVE BEEN ENROLLED IN A CHEMICAL DEPENDENCY/SUBSTANCEABUSE PROGRAM, SOME INFORMATION MAY BE OMITTED. This clinical summary was aggregated from multiple sources. Caution should be exercised in using it in the provision of clinical care. This summary normalizes information from multiple sources, and as a consequence, information in this document may materially change the coding, format and clinical context of patient data. In addition, data may be omitted in some cases. CLINICAL DECISIONS SHOULD BE BASED ON THE PRIMARY CLINICAL RECORDS. [facility], [facility]. provides no warranty or guarantee of the accuracy or completeness of information in this document.
== END | disposition home or self-care (01) ==
LOC: OPUS 08:03
PROVIDERS: PCP Student in an Organized Health Care Education/Training Program; Visit Provider Surgery
DX: R92.8 Other abnormal and inconclusive findings on diagnostic imaging of breast (principal)
CPT/HCPCS: 76642

== ENCOUNTER → 2025-04-10 | Outpatient (CLI) | payer OTHER, SELFPAY ==
--- NOTE | 2025-04-10 08:54 | BI_ITS ---
EXAM: DIAG MAMM W/CAD, BILAT; BILAT BRST JAMAL STAND ALONE 04/10/2025 CLINICAL HISTORY: F, Age 50 y/o , ABNORMAL MAMMOGRAM; PAST CYSTS. Personal history of excisional biopsy in the left breast in 2003. TECHNIQUE: Bilateral Diagnostic digital breast tomosynthesis with 2D and 3D images. Computer aided detection. COMPARISON: Ultrasound 01/24/2024. Ultrasound and mammogram 07/08/2023. FINDINGS: TISSUE DENSITY: The breast tissue is heterogenously dense, which may obscure small masses. Bilateral Breast Mammographic Findings: There are postsurgical changes including multiple surgical clips in the central left breast, which is not significantly changed when compared to prior exam. There are multiple bilateral circumscribed masses, that likely represent cysts, which were best seen on the prior ultrasounds. Otherwise, there are no suspicious findings in either breast. BI/DIAG MAMM W/CAD, BILAT IMPRESSION: There is no evidence of malignancy in either breast. OVERALL FINAL ASSESSMENT: BIRADS 2 BENIGN FINDING. RECOMMENDATION: Routine annual follow-up in 1 Year A letter with findings and recommendations will be mailed to the patient. Reading Location: [id number]
--- NOTE | 2025-04-10 09:04 | BI_ITS ---
EXAM: DIAG MAMM W/CAD, BILAT; BILAT BRST JAMAL STAND ALONE 04/10/2025 CLINICAL HISTORY: F, Age 50 y/o , ABNORMAL MAMMOGRAM; PAST CYSTS. Personal history of excisional biopsy in the left breast in 2003. TECHNIQUE: Bilateral Diagnostic digital breast tomosynthesis with 2D and 3D images. Computer aided detection. COMPARISON: Ultrasound 01/24/2024. Ultrasound and mammogram 07/08/2023. FINDINGS: TISSUE DENSITY: The breast tissue is heterogenously dense, which may obscure small masses. Bilateral Breast Mammographic Findings: There are postsurgical changes including multiple surgical clips in the central left breast, which is not significantly changed when compared to prior exam. There are multiple bilateral circumscribed masses, that likely represent cysts, which were best seen on the prior ultrasounds. Otherwise, there are no suspicious findings in either breast. BI/Bilat Brst Jamal Stand Alone IMPRESSION: There is no evidence of malignancy in either breast. OVERALL FINAL ASSESSMENT: BIRADS 2 BENIGN FINDING. RECOMMENDATION: Routine annual follow-up in 1 Year A letter with findings and recommendations will be mailed to the patient. Reading Location: [id number]
== END | disposition home or self-care (01) ==
LOC: OPBI 08:52
PROVIDERS: PCP Student in an Organized Health Care Education/Training Program; Referring Provider Surgery; Visit Provider Surgery
DX: R92.8 Other abnormal and inconclusive findings on diagnostic imaging of breast (principal)
CPT/HCPCS: 77062; 77066; G0279